=== PATIENT | male | born 1975 | race Caucasian/White ===

== ENCOUNTER 2020-11-20 10:09 | Outpatient (CLI) | payer OTHER, SELFPAY ==
--- NOTE | ~2020-11-20 | XR_ITS ---
XR knee LT 3V 11/20/2020 10:31 Indication: Left knee pain Procedure: 3 views left knee Comparison: No prior studies for comparison. Findings: Mild tricompartment osteoarthritis of the left knee. No significant joint effusion. There a re vascular calcifications. No fracture or traumatic malalignment. Impression: 1: Mild osteoarthritis of the left knee. Reviewed, dictated and finalized at location A. E UNLOADER Impression: 1: Mild osteoarthritis of the left knee.
== END 2020-11-20 10:10 | disposition home or self-care (01) ==
LOC: CHSIMG 10:12
PROVIDERS: PCP Family Medicine; Visit Provider Family Medicine
DX: M25.562 Pain in left knee (principal)
CPT/HCPCS: 73562

== ENCOUNTER 2021-07-16 14:21 | Outpatient (CLI) | payer BC, SELFPAY ==
--- NOTE | ~2021-07-16 | US_ITS ---
EXAMINATION: US arterial ankle brachial ind DATE: 07/16/2021 15:21 INDICATION: Absent pedal pulses. TECHNIQUE: Segmental pressures and plethysmographic and Doppler waveforms of the brachial and lower e xtremity arteries were obtained. COMPARISON: None. FINDINGS: Right and left brachial artery pressures of 128 mm Hg and 119 mm Hg, respectively, are concordant (no rmal difference <= 30 mmHg). The right ankle-brachial index (KIANNA) is 0.97 (normal >= 0.9-1.0). No evident vascular flow identified at color Doppler in the right dorsalis pedis artery consistent with complete occlusion. The right gr eat toe-brachial index (TBI) is 0.67 (normal >= 0.65). Arterial Doppler waveforms are triphasic with brisk systolic upstrokes at the right posterior tibial artery. The left KIANNA is 1.04. The left TBI is 0.61. Arterial Doppler waveforms are triphasic with brisk systo lic upstrokes at both the left posterior tibial and dorsalis pedis arteries. IMPRESSION: 1. Occluded right dorsalis pedis artery but with no significant arterial occlusive disease to the rig ht posterior tibial artery and tingling a normal right KIANNA and TBI. 2. Mild arterial occlusive disease to the left lower limb with normal left KIANNA but mildly decreased l eft TBI. Reviewed, dictated and finalized at location A. IMPRESSION: 1. Occluded right dorsalis pedis artery but with no significant arterial occlus jack disease to the right posterior tibial artery and tingling a normal right AB I and TBI. 2. Mild arterial occlusive disease to the left lower limb with normal left KIANNA but mildly decreased left TBI.
== END 2021-07-16 14:22 | disposition home or self-care (01) ==
LOC: CHSIMG 14:22
PROVIDERS: PCP Family Medicine; Visit Provider Family Medicine
DX: R09.89 Other specified symptoms and signs involving the circulatory and respiratory systems (principal)
CPT/HCPCS: 93922

== ENCOUNTER 2021-08-20 11:56 | Outpatient (RCR) | payer BC, SELFPAY ==
[2021-08-20 13:31] VITALS: BMI 43.8
== END 2021-11-18 23:59 | disposition home or self-care (01) ==
LOC: ANHWOC 11:56
PROVIDERS: PCP Family Medicine; Visit Provider Family Medicine
DX: I87.2 Venous insufficiency (chronic) (peripheral) (principal)
CPT/HCPCS: 99212; G0463

== ENCOUNTER 2022-02-12 07:29 | Outpatient (RCR) | payer BC, SELFPAY ==
--- NOTE | 2022-03-11 14:40 | PCWOUND ---
WOCN NOTE patient called to cancel his appointment for 03/12/22. Patient sees a vascular specialist in [facility]. Patient states that his vascular surgeon has referred him to another doctor who wants him to do his wound care in [facility].
== END 2022-02-25 23:59 | disposition home or self-care (01) ==
LOC: ANHWOC 07:29
PROVIDERS: PCP Family Medicine; Visit Provider Family Medicine
DX: I87.2 Venous insufficiency (chronic) (peripheral) (principal); L97.829 Non-pressure chronic ulcer of other part of left lower leg with unspecified severity
CPT/HCPCS: 99212; A9270; G0463

== ENCOUNTER 2022-02-13 12:32 | Outpatient (CLI) | payer BC, SELFPAY ==
[2022-02-13 12:43] LABS: Basophils Absolute Auto 0.04 K/mm3 (0.00-0.10); Basophils Percent Auto 0.6 % (0.0-1.0); Eosinophils Absolute Auto 0.29 K/mm3 (0.02-0.50); Eosinophils Percent Auto 4.5 % (1.0-6.0); Hematocrit 44.7 % (40.0-54.0); Hemoglobin 14.9 g/dL (14.0-18.0); Immature Granulocyte Absolute 0.03 K/mm3 (0.00-0.00); Immature Granulocyte Percent A 0.5 % (0.0-0.0); Lymphocytes Absolute Auto 1.38 K/mm3 (1.10-4.50); Lymphocytes Percent Auto 21.4 % (18.0-42.0); Mean Corpuscular HGB Conc 33.3 g/dL (32.0-36.0); Mean Corpuscular Volume 93.1 fL (78.0-102.0); Mean Platelet Volume 9.4 fl (8.7-11.0); Monocytes Absolute Auto 0.56 K/mm3 (0.10-0.90); Monocytes Percent Auto 8.7 % (2.0-11.0); Neutrophils Absolute Auto 4.2 K/mm3 (1.7-7.2); Neutrophils Percent Auto 64.3 % (50.0-70.0); Platelet Count Result 184 K/mm3 (150-420); Red Cell Distribution Width 12.5 % (11.6-14.4); White Blood Count 6.5 K/mm3 (4.8-10.8)
[2022-02-13 13:19] LABS: Alanine Aminotransferase 46 U/L (16-63); Albumin Level 4.4 g/dL (3.4-5.0); Alkaline Phosphatase 60 U/L (46-116); Anion Gap 10 mmol/L (8-16); Aspartate Amino Transferase 24 U/L (15-37); Bilirubin,Total 0.5 mg/dL (0.00-1.00); Blood Urea Nitrogen 17 mg/dL (7-18); Calcium 9.8 mg/dL (8.5-10.1); Carbon Dioxide 28 mmol/L (21-32); Chloride 103 mmol/L (98-108); Estimated Glomerular Filt Rate > 60; Glucose 99 mg/dL (70-99); Osmolality Calculated 293 mOsm/kg (285-295); Potassium 4.2 mmol/L (3.5-5.1); Sodium 141 mmol/L (136-145); Total Protein 7.4 g/dL (6.4-8.2)
[2022-02-13 13:48] LABS: Erythrocyte Sedimentation Rate 10 mm/hr (0-15)
[2022-02-18 09:37] LABS: ANA Cascade Screen Negative (Negative)
== END 2022-02-13 12:33 | disposition home or self-care (01) ==
LOC: CHSLAB 12:34
PROVIDERS: PCP Family Medicine; Visit Provider Family Medicine
DX: R21 Rash and other nonspecific skin eruption (principal); L03.116 Cellulitis of left lower limb
CPT/HCPCS: 36415; 80053; 85025; 85652; 86038; 87070; 87205

== ENCOUNTER 2023-11-16 20:25 | Emergency (ER) | payer OTHER, SELFPAY ==
[2023-11-16] VITALS (19 sets, daily range): BP systolic 128–150; BP diastolic 80–101; PULSE 76–94; RESP 8–22; TEMP 36.8; O2SAT 91–98
--- NOTE | ~2023-11-16 | XR_ITS ---
EXAMINATION: XR chest 1V portable Exam Date/Time: 11/16/2023 20:50 ACUTE CARE PHYSICAL THERAPIST HISTORY: v-fib arrest, Comparison: 03/24/2017. RESULT: Lines, tubes, and devices: Median sternotomy wires, 2 of which are fractured. Project over the inferior chest Lungs and pleura: Mild diffuse reticular opacities. Cardiomediastinal silhouette: Stable. Other: No acute osseous or upper abdominal finding. IMPRESSION: Mild interstitial edema. Reviewed, dictated and finalized at location K. E CARE PHYSICAL THERAPIST IMPRESSION: Mild interstitial edema.
--- NOTE | ~2023-11-16 | CT_ITS ---
EXAMINATION: CT brain wo con DATE: 11/17/2023 00:01 INDICATION: Cardiac arrest. TECHNIQUE: Computed tomography (CT) of the head was performed without intravenous contrast. The mA wa s adjusted according to patient size. Iterative reconstruction technique was employed. The dose-lengt h product was 681.00 mGy-cm. COMPARISON: None FINDINGS: There are old infarcts in the right basal ganglia. There are scattered areas of low attenua tion in the cerebral white matter, which is within normal limits for the patient's age. There is no i ntracranial hemorrhage, acute infarction, or abnormal intracranial mass lesion. The ventricles are no rmal in size. There is mild mucosal thickening in the ethmoid sinuses. There is a mucous retention cy st in right maxillary sinus. The mastoid air cells are normal. The orbits are normal. IMPRESSION: 1. Old infarcts in the right basal ganglia. Reviewed, dictated and finalized at location A. ING MACHINE SERVICER
--- NOTE | ~2023-11-16 | CT_ITS ---
EXAMINATION: CTA chest PE protocol DATE: 11/16/2023 22:23 INDICATION: Chest pain. Cardiac arrest. TECHNIQUE: Computed tomography angiography (CTA) of the chest was performed with 100 mL Omnipaque-350 intravenous contrast timed to evaluate the pulmonary arteries. Coronal maximum intensity projection 3D-reconstructions were created by the technologist. Automated exposure control and iterative reconst ruction technique were employed. The dose-length product was 1143.92 mGy-cm. COMPARISON: None. FINDINGS: The lungs demonstrate mild atelectasis. No pleural effusion. There is left ventricular enla rgement of the heart. There are coronary artery calcifications. There are changes of coronary artery bypass grafting. No pericardial effusion. The main pulmonary artery is enlarged, consistent with pulm onary arterial hypertension. There is bilateral gynecomastia. There are bridging endplate osteophytes at multiple levels in the spine, consistent with diffuse idiopathic skeletal hyperostosis (DISH). Th ere is mild chronic anterior wedging of multiple vertebral bodies. IMPRESSION: 1. No pulmonary embolus. 2. Left ventricular enlargement of the heart. Reviewed, dictated and finalized at location A. NEERING EXECUTIVE
--- NOTE | 2023-11-16 20:39 | ECG_ITS ---
Measurements Intervals [place] Rate: 90 P: 29 MA: 185 QRS: 24 QRSD: 156 T: -69 QT: 401 QTc: 491 Interpretive Statements SINUS RHYTHM INTRAVENTRICULAR CONDUCTION DELAY DELAYED PRECORDIAL R/S TRANSITION INFERIOR INFARCT, AGE INDETERMINATE BORDERLINE ST-T WAVE ABNORMALITY- LAT/HIGH LAT LEADS BASELINE ARTIFACT- V5-V6 ABNORMAL ECG NO PREVIOUS ECG AVAILABLE FOR COMPARISON Electronically Signed On 11-17-2023 8:17:23 MECHANICAL ENGINEERING ADVISOR by Negrito Samuel D.O.
[2023-11-16 20:52] LABS: Basophils Absolute Auto 0.1 K/mm3 (0.0-0.1); Basophils Percent Auto 0.9 % (0.2-1.2); Eosinophils Absolute Auto 0.1 K/mm3 (0-0.3); Eosinophils Percent Auto 1.8 % (0-4.4); Hematocrit 45.7 % (42.0-52.0); Lymphocytes Absolute Auto 1.73 K/mm3 (0.9-3.2); Lymphocytes Percent Auto 25.6 % (18.3-44.2); Mean Corpuscular HGB Conc 32.8 g/dl (32-36); Mean Corpuscular Hemoglobin 30.6 pg (26-34); Mean Corpuscular Volume 93.3 fl (80-100); Monocytes Absolute Auto 0.6 K/mm3 (0.1-0.6); Monocytes Percent Auto 8.9 % (2.6-8.5); Neutrophils Percent Auto 59.8 % (45.5-73.1); Platelet Count Result 179 k/mm3 (150-375); Red Cell Distribution Width 12.5 % (11.5-14.5); White Blood Count 6.8 K/mm3 (4.5-10.0)
[2023-11-16 21:02] LABS: Prothrombin Time 14.2 Seconds (11.1-14.7)
[2023-11-16 21:03] LABS: Partial Thromboplastin Time 26.1 SECONDS (22.3-36.8)
[2023-11-16] MEDS: AMIODARONE 150 MG/D5W 100 ML 150 MG/100 ML BAG 600 MG IV CONT (21:04)
[2023-11-16 21:06] LABS: Alanine Aminotransferase 250 U/L (6-50); Albumin Level 4.8 g/dL (3.5-5.1); Alkaline Phosphatase 69 U/L (38-126); Anion Gap 16 mmol/L (8-16); Aspartate Amino Transferase 313 U/L (17-59); Bilirubin,Total 0.7 mg/dL (0.2-1.3); Blood Urea Nitrogen 20 mg/dL (9-20); Calcium 9.3 mg/dL (8.4-10.2); Carbon Dioxide 19 mmol/L (22-30); Chloride 104 mmol/L (98-107); Estimated CRCL calculation 74 ml/min; Estimated Glomerular Filt Rate 46; Glucose 151 mg/dL (65-110); Lipase 116 U/L (23-300); Magnesium 2.1 mg/dL (1.6-2.3); Phosphorus 4.5 mg/dL (2.5-4.5); Potassium 3.6 mmol/L (3.4-5.0); Sodium 139 mmol/L (137-145)
[2023-11-16 21:16] LABS: Troponin I < 0.012 ng/mL (0.000-0.034)
[2023-11-16 21:17] LABS: NT Pro B Type Natriuretic Pept 287 pg/mL (19.9-100); Troponin I < 0.012 ng/mL (0.000-0.034)
[2023-11-16 21:21] LABS: Lactic Acid Reflex 4.7 mmol/L (0.7-2.0)
[2023-11-16] MEDS: AMIODARONE 360 MG/D5W 200 ML 360 MG/200 ML BAG 33.33 MG IV CONT (21:35)
--- NOTE | 2023-11-16 21:45 | ECG_ITS ---
Measurements Intervals [place] Rate: 84 P: 20 IL: 179 QRS: 16 QRSD: 158 T: -52 QT: 407 QTc: 484 Interpretive Statements SINUS RHYTHM VENTRICULAR PREMATURE COMPLEX INTRAVENTRICULAR CONDUCTION DELAY DELAYED PRECORDIAL R/S TRANSITION INFERIOR INFARCT, AGE INDETERMINATE BORDERLINE ST-T WAVE ABNORMALITY- ANTEROLAT/HIGH LAT LEADS ABNORMAL ECG COMPARED TO ECG 11/16/2023 20:41:04 NO SIGNIFICANT CHANGES Electronically Signed On 11-17-2023 8:19:22 JEWELRY TECHNICIAN by Negrito Samuel D.O.
[2023-11-16 22:01] LABS: Free T4 Free Thyroxine Reflex 1.13 ng/dL (0.78-2.19)
--- NOTE | 2023-11-16 22:52 | ED.GENADULT ---
HPI - General Adult General Chief complaint: Cardiac Arrest/CPR Stated complaint: post ROSC in field Time Seen by Provider: 11/16/23 20:33 History of Present Illness HPI narrative: this is a 48-year-old male with a history of coronary artery disease with CABG and cardiomyopathy with ejection of less than 20%. patient does not recall the events will lead to have the ER. His heard him fall in the kitchen. She then performed CPR as he was unresponsive. When EMS arrived he was found to be in VFib. He was shocked and then returned to A&O x4. His only complaint is time is chest wall pain For CPR was performed. Per his his pipeline gang supervisor Michel Patterson had recommended a an AICD due to persistently low EF and the patient had refused. Related Data Home Medications Medication Instructions Recorded Confirmed levofloxacin 500 mg tablet 500 mg PO DAILY 08/20/21 08/20/21 lisinopril 40 mg tablet 40 mg PO DAILY 08/20/21 08/20/21 metoprolol succinate 100 mg 100 mg PO DAILY 08/20/21 08/20/21 tablet,extended release 24 hr rosuvastatin 40 mg tablet 40 mg PO DAILY 08/20/21 08/20/21 spironolactone 25 mg tablet 25 mg PO DAILY 08/20/21 08/20/21 ticagrelor 60 mg tablet (Brilinta) 60 mg PO Q12H 08/20/21 08/20/21 triamcinolone acetonide 0.1 % 1 applic topical BID 08/20/21 08/20/21 topical cream Allergies Allergy/AdvReac Type Severity Reaction Status Date / Time No Known Allergies Allergy Mild Verified 08/20/21 13:56 [facility] Past Medical History Medical History CAD (coronary artery disease) Cardiomyopathy Diabetes HTN (hypertension) Exam Narrative: APPEARANCE: No apparent distress. Head: atraumatic. EYES: EOMI, NOSE: Atraumatic NECK: Trachea midline RESPIRATORY: No increased rate of breathing, CTAB CARDIOVASCULAR: RRR, , no peripheral edema ABDOMINAL: Non-distended, soft nontender MUSCULOSKELETAl: chest wall tenderness of the left parasternal area no bruising or crepitus NEURO: Alert. Moving 4/4 extremities SKIN:: Warm, dry. Normal color PSYCHIATRIC: Normal affect Course Vital Signs Vital signs: Vital Signs Temperature 98.3 F 11/16/23 20:15 Pulse Rate 94 11/16/23 20:15 Respiratory Rate 15 11/16/23 20:15 Blood Pressure 143/98 H 11/16/23 20:15 Pulse Oximetry 93 11/16/23 20:15 Oxygen Delivery Room Air 11/16/23 20:15 Temperature 98.3 F 11/16/23 20:15 Pulse Rate 86 11/17/23 01:15 Respiratory Rate 20 11/17/23 01:15 Blood Pressure 147/101 H 11/16/23 23:51 Pulse Oximetry 95 11/17/23 01:15 Oxygen Delivery Room Air 11/16/23 23:21 Oxygen Flow Rate 2 11/16/23 20:39 Medical Decision Making MDM Narrative Medical decision making narrative: -Course: 48-year-old male presenting with VFib arrest in the field. He received a shock with return to baseline mental status. On arrival his only complaint is left chest wall pain. EKG showed no specific ST changes. STEMI was activated and I discussed the case with Dr. Lazo about some concerns for STEMI in III/AVF. She was able to compare the ekg to previous records and no concern for stemi at this time. REpeat EKG unchanged. patient likely went to VFib arrest due to low ejection fraction. He was started on amiodarone. case was discussed with Dr. Jolley public affairs director at [facility] in [place]. He has accepted the patient. Patient will be transferred to an outside facility for further cardiac management. -DDX includes but is not limited to: ACS, VFib arrest, cardiomyopathy, pneumonia, PE, dissection, -Co-morbidities complicating care: CAD, cardiomyopathy, hypertension, diabetes, high cholesterol -External Chart Review: outside cardiology records -Hx from independent Sources: at bedside -Independent interpretation of studies: CBC normal, metabolic panel showed a creatinine 1.6. No baseline to compare. Lactate is 4.7 which is being trended. Minor elevati
[2023-11-16 23:25] LABS: Total Triiodothyronine (T3) 1.11 NG/ML (0.97-1.69)
[2023-11-16] MEDS: ACETAMINOPHEN 500 MG TABLET 1000 MG PO (23:25)
[2023-11-16 23:50] LABS: Reflex Lactic Acid Yes or No Add Lactic
[2023-11-17] VITALS (11 sets, daily range): BP systolic 150–158; BP diastolic 97–102; PULSE 78–92; RESP 18–29; O2SAT 95–98
[2023-11-17] MEDS: POTASSIUM CHLORIDE 20 MEQ PACKET (FOR LIQUID) 40 MEQ PO (00:10)
[2023-11-17 01:06] LABS: Lactic Acid 1.3 mmol/L (0.7-2.0)
[2023-11-17 01:25] LABS: Troponin I 0.181 ng/mL (0.000-0.034)
--- NOTE | 2023-11-17 01:35 | PC.NURSE ---
THIS RN SPOKE WITH JACINTA STEEL AT [facility] TO UPDATE RN ON PT CRITICAL TEST RESULTS OF TROPONIN. THIS RN SPOKE WITH JACINTA STEEL AT [phone].
[2023-11-17] MEDS: HEPARIN SOD/D5W 100 UNITS/ML 25,000 UNITS/250 ML BAG 10 UNITS IV CONT (01:45)
[2023-11-17] MEDS: HEPARIN SODIUM 5,000 UNITS/ML VIAL 4000 UNITS IV PUSH (01:45)
--- NOTE | 2023-11-17 02:31 | PC.NURSE ---
PT TRANSFERRED WITH AMIODARONE INFUSING ALONG WITH HEPARIN.
== END 2023-11-17 02:32 | disposition short-term general hospital (02) ==
PROVIDERS: Emergency Provider Emergency Medicine; PCP Family Medicine
DX: I49.01 Ventricular fibrillation (principal); I46.9 Cardiac arrest, cause unspecified; I25.10 Atherosclerotic heart disease of native coronary artery without angina pectoris; I10 Essential (primary) hypertension; I42.9 Cardiomyopathy, unspecified; E11.9 Type 2 diabetes mellitus without complications; E78.00 Pure hypercholesterolemia, unspecified; Z95.1 Presence of aortocoronary bypass graft; I45.9 Conduction disorder, unspecified; R94.31 Abnormal electrocardiogram [ECG] [EKG]; I49.3 Ventricular premature depolarization
CPT/HCPCS: 36415; 70450; 71045; 71275; 80053; 83605; 83690; 83735; 83880; 84100; 84439; 84443; 84480; 84484; 85025; 85610; 85730; 93005; 96365; 96366; 99285; A9270; J0282; J1644; J2060; Q9967

== ENCOUNTER 2024-10-11 10:13 | Outpatient (CLI) | payer OTHER, SELFPAY ==
--- NOTE | ~2024-10-11 | XR_ITS ---
XR knee LT 3V Ordering provider: Geovanni Meyer MD History: . PAIN IN LEFT KNEE,PATELLA,NKI . Comparison: None. FINDINGS: BONES: No acute fracture or dislocation. JOINT SPACES: Slight narrowing of the medial compartment. Marginal osteophytes in the patella. SOFT TISSUES: Atherosclerotic changes. IMPRESSION: No acute osseous abnormality left knee. Mild osteoarthritic changes. Reviewed, dictated and finalized at location A. OR FINANCIAL ACCOUNTANT
== END 2024-10-11 10:14 | disposition home or self-care (01) ==
LOC: CHSIMG 10:14
PROVIDERS: PCP Family Medicine; Visit Provider Family Medicine
DX: M25.562 Pain in left knee (principal)
CPT/HCPCS: 73562

== ENCOUNTER 2024-10-20 16:01 | Outpatient (RCR) | payer OTHER, SELFPAY ==
--- NOTE | 2024-10-20 16:53 | OPREHPOC ---
Outpatient Therapy Plan of Care This is a Multidisciplinary Plan of Care that may contain components documented by all disciplines (PT, OT, and ST.) PT Problem 1 PT Problem #1 Knowledge Deficit PT Goal 1 Goal / Goal Update 1. independent and compliant with HEP Target Visit 5 PT Problem 2 PT Problem #2 Pain PT Goal 1 Goal / Goal Update 1. decrease pain at worst to 3/10 or less in the L knee in the last week Target Visit 9 PT Problem 3 PT Problem #3 Impaired Range of Motion PT Goal 1 Goal / Goal Update 1. 0-120 degrees active L knee rom Target Visit 9 PT Problem 4 PT Problem #4 Impaired Strength PT Goal 1 Goal / Goal Update 1. 5/5 L knee ext strength 2. 5/5 bilateral hip flex strength Target Visit 9 PT Problem 5 PT Problem #5 Impaired Functional Mobil PT Goal 1 Goal / Goal Update 1. LEFS to display 30% or less functional deficits 2. patient to ambulate with equal stance time/ weight bearing on the bilateral LE's. Target Visit 9
--- NOTE | 2024-10-20 16:53 | PTOPEVAL1 ---
Assessment and note entered by JT File, PT Evaluation Information Assessment Status Evaluation ICD-10 Condition Codes (PT) Pain in left knee M25.562 Onset 10/06/24 Subjective Information patient reports the L knee has been bad for quite some time. he reports he has been seeing the MD for a few years. he reports he recently had xrays, and was told he has a little OA in the knee. he reports he has increased pain in the L knee with all activities at times. he reports some times sitting is worse, some times standing is worse, and some times he can have severe pain with pivoting/turning. he reports it does give out on him, but it has not given out on him in a few days . 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 he reports he is on his feet all day. Reported Pain Level Pain Score 2: Self Report Assessment PT Clinical Summary mr. ham is a 49 yo man who presents to skilled PT services for evaluation and treatment of L knee pain. he presents today with signs and symptoms possible cartilage damage or medial patella plica issues. he presents with decreased L knee rom, L knee weakness, and antalgic gait mechanics. he would benefit from continued skilled PT to address his objective/functional deficits and return to his prior level functional activity performance/ quality of life. Plan of Care Interventions Gait Training,Hot Pack/Cold Pack,Manual Therapy, Neuro Re-education,Patient/Caregiver Educati, Therapeutic Activities,Therapeutic Exercise PT Services Indicated Yes Treatment Frequency and 3x weekly for 9 visits Duration These treatments will address the objective and functional deficits as defined above. The patient will be advanced safely and appropriately in order for the patient to progress towards his/her prior level of function. Additional exercises will be introduced and as well as a comprehensive home exercise program upon discharge, if needed, ?to ensure carryover of functional gains achieved in the clinic. This treatment plan has been reviewed and agreement upon by the patient.
--- NOTE | 2024-11-05 13:17 | PCPTNOTE ---
Patient called & cancelled scheduled appointment this date due to [knee swollen and hurting]
--- NOTE | 2024-11-19 17:39 | OPREHPOC ---
Outpatient Therapy Plan of Care This is a Multidisciplinary Plan of Care that may contain components documented by all disciplines (PT, OT, and ST.) PT Problem 1 PT Problem #1 Knowledge Deficit PT Goal 1 Goal / Goal Update 1. independent and compliant with HEP Target Visit 5 Progress Met PT Problem 2 PT Problem #2 Pain PT Goal 1 Goal / Goal Update 1. decrease pain at worst to 3/10 or less in the L knee in the last week Target Visit 9 PT Problem 3 PT Problem #3 Impaired Range of Motion PT Goal 1 Goal / Goal Update 1. 0-120 degrees active L knee rom Target Visit 9 Progress Partially Met PT Problem 4 PT Problem #4 Impaired Strength PT Goal 1 Goal / Goal Update 1. 5/5 L knee ext strength 2. 5/5 bilateral hip flex strength Target Visit 9 Progress Met PT Problem 5 PT Problem #5 Impaired Functional Mobility PT Goal 1 Goal / Goal Update 1. LEFS to display 30% or less functional deficits 2. patient to ambulate with equal stance time/ weight bearing on the bilateral LE's. Target Visit 9 Progress Partially Met
--- NOTE | 2024-11-19 17:39 | PTOPDC ---
Assessment and note entered by JT File, PT Evaluation Information Assessment Status Discharge ICD-10 Condition Codes (PT) Pain in left knee M25.562 Onset 10/06/24 Subjective Information patient reports the knee feels Better overall. he reports he has less pain in the knee, more mobility in the knee, and he reports it has not given out on him recently. he reports the swelling has gone down quite a bit as well. he reports he is returning to see the MD soon, and will develop a plan for his knee. Reported Pain Level Pain Score 3: Self Report Pain Score 3: Self Report Assessment PT Clinical Summary mr. ham presents to skilled PT for his 9th skilled PT visit. he displays improved rom, strength, and gait mechanics. he has met hep and strength goal, but still lacks achievement of LEFS goals and rom goals completely (progress towards/ partial achievement made in these areas). he is compliant with his HEP at home, and is awaiting follow up with his MD. at this time, he will DC skilled PT and continue with HEP independent at home. Plan of Care PT Services Indicated Yes
== END 2024-11-19 17:42 | disposition home or self-care (01) ==
LOC: CHSPT 16:01
PROVIDERS: Visit Provider Family Medicine
DX: M25.562 Pain in left knee (principal)
CPT/HCPCS: 97016; 97110; 97150; 97161

== ENCOUNTER 2025-02-23 08:15 | Outpatient (CLI) | payer OTHER, SELFPAY ==
--- NOTE | ~2025-02-23 | US_ITS ---
EXAMINATION: US soft tissue head and neck DATE: 02/23/2025 08:34 INDICATION: Large thyroid. Swelling in the neck. TECHNIQUE: Multiple ultrasound images of the and neck in the region of the thyroid and below the chin were obtained. COMPARISON: None. FINDINGS: The right thyroid lobe measures 5.3 x 2.7 x 2.3 cm. The left thyroid lobe measures 5.2 x 2.8 x 2.0 c m. Thyroid isthmus measures 8 mm in thickness. Heterogeneous echogenicity with coarsened echotexture throughout the thyroid with normal vascular flow on color Doppler. No discrete nodules identified. Th ere are few mildly prominent but still normal-sized submental lymph nodes below the chin largest master uring 2.6 x 2.4 x 0.8 cm. No other abnormal masses or fluid collections identified. IMPRESSION: 1. A few mildly prominent but still normal-sized submental lymph nodes. 2. Mildly enlarged heterogeneous thyroid with coarsened echotexture but without increased vascular fl ow on color Doppler or discrete nodules. This could be seen in the setting of chronic thyroiditis. Reviewed, dictated and finalized at location B. IMPRESSION: 1. A few mildly prominent but still normal-sized submental lymph nodes. 2. Mildly enlarged heterogeneous thyroid with coarsened echotexture but without increased vascular flow on color Doppler or discrete nodules. This could be se en in the setting of chronic thyroiditis.
--- OUTSIDE RECORDS SUMMARY | 2025-02-23 08:28 | XMS_ITS | Encounter Summary ---
Author Organization [facility] Address [address] [place] [id number] Care Team Providers Care Link Wire Fabric Machine Operator Name Role Phone Geovanni Meyer MD Primary Care Provider [phone] Sugar Patterson MD Unavailable El Tariq MD Unavailable [phone] Barbara Flowers MD Unavailable [phone] Tony Jimenez PA-C Unavailable [phone] Reason for Visit * Reason Onset Date Comments Results 02/09/2025 Encounter Details Date Type Department Care Team (Late st Contact Info) Description 02/09/2025 Telephone [facility] [address] [place] [address] Barbara Flowers MD [address] [facility] [address] [address] Results Social History Tobacco Use Types Packs/Day Years Used Date Smoking Tobacco: Former Smokeless Tobacco: Never Snuff Alcohol Use Standard Drinks/Week Comments Yes 0 (1 standard drink = 0.6 oz pur e alcohol) 5-10 drinks per week [facility] Utilities Answer Date Recorded In the past 12 months has e electric, gas, oil, or water [employer] threatened to shut off services in your home? No 11/17/2023 Humiliation, Afraid, Rape, and Kick questionnair e Answer Date Recorded Within the last year, have y ou been afraid of your partner or ex-partner? No 11/17/2023 Within the last year, have y ou been humiliated or emotionally abused in other ways by your partner or ex-partner? No Within the last year, have y ou been kicked, hit, slapped, or otherwise physically hurt by your partner or ex-partner? No 11/17/2023 Within the last year, have y ou been raped or forced to have any kind of sexual activity by your partner or ex-partner? No 11/17/2023 Overall Financial Resource Strain (CARDIA) Answe r Date Recorded How hard is it for you to pa y for the very basics like food, housing, medical care, and heating? Not hard at all 11/17/2023 Hunger Vital Sign Answer Date Recorded Within the past 12 months, y ou worried that your food would run out before you got the money to buy more. Never true 11/17/19 24 Within the past 12 months, t he food you bought just didn't last and you didn't have money to get more. Never true 11/17/2023 PRAPARE - Transportation Answer Date Re corded In the past 12 months, has l ack of transportation kept you from medical appointments or from getting medications? No 11/2023 In the past 12 months, has l ack of transportation kept you from meetings, work, or from getting things needed for daily living? No 11/17/2023 Housing Stability Vital Sign Answer Sukumar e Recorded In the last 12 months, was t here a time when you were not able to pay the mortgage or rent on time? No 11/17/2023 In the last 12 months, how many places have you lived? 1 11/17/2023 In the last 12 months, was t here a time when you did not have a steady place to sleep or slept in a snf (including now)? 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 Answer Date of Assessment Author Status No 11/17/2023 4:00 AM Chun Richey RN Active * Do you have serious difficulty walking or climbing stairs? Answer Date of Assessment Author Status No 11/17/2023 4:00 AM Chun Richey RN Active * Do you have difficulty dressing or bathing? Answer Date of Assessment Author Status No 11/17/2023 4:00 AM Chun Richey RN Active * Because of a physical, mental, or emotional condition, do you have difficulty doing errands alone such as visiting a doctor's office or shopping? Answer Date of Assessment Author Status No 11/17/2023 4:00 AM Chun Richey RN Active documented as of this encounter Mental Status * Because of a physical, mental, or emotional condition, do you have serious difficulty concentrating, remembering, or making decisions? Answer Entry Date Author Status No 11/17/2023 4:00 AM Chun Richey RN Active documented in this encounter Progress Notes * Pierce Mcginnis MA - 02/22/2025 10:24 AM CDT Images from the original note were not included. MD Pierce Chao MA No changes to plan. Keep 03/17 followup. Previous Messages ----- Message ----- From: Pierce Mcginnis MA Sent: 02/09/2025 3:43 PM CDT To: Barbara Flowers MD Please see 01/10 Amiodarone Surveillance Results. TSH, CMP, and CXR were normal. Patient's amio level showed subtherapeutic at 0.6 Recommendation at 01/10 Clinic Visit was to follow up in 2 months and discuss possibly reducing dose. Also discussed VT ablation vs continue amio. Patient is scheduled to meet with Ed on 03/17. documented in this encounter Plan of Treatment Upcoming Encounters Date Type Department Care Team (Latest Contact Info) Description 03/17/2025 2:00 PM CDT Office Visit [facility] [address] [place] [address] Tony Jimenez PA-C [address] [place] [phone] 03/17/2025 2:00 PM CDT Allied Health/Nurse Visit [facility] [address] [place] [phone] Barbara Flowers MD [address] [place] [phone] 06/23/2025 1:00 AM CDT Allied Health/Nurse Visit [address] [phone] Barbara Flowers MD [address] [place] [phone] 07/20/2025 1:30 PM CDT Appointment [facility] [address] [place] [address] Sugar Patterson MD [address] [place] [phone] 07/25/2025 1:30 PM CDT Office Visit [facility] [address] [place] [address] Sugar Patterson MD [address] [place] [phone] documented as of this encounter Goals Goal Patient Goal Type Associated Problems Recent Progress Patient-Stated? Author Patient will return to prior living situation and remain independent in ADLs upon discharge from hospital Lifestyle No Michelle Self RN documented as of this encounter Visit Diagnoses Not on filedocumented in this encounter Care Teams Link Wire Fabric Machine Operator Relationship Specialty Start Date End Date Geovanni Meyer MD [address] [place], [place] [id number] PCP - General FAMILY PRACTICE 08/06/21 Sugar Patterson MD [address] [place] [address] [place] Feature Writer CARDIOVASCULAR DISEASE 10/31/21 El Tariq MD [address] [place], [place] [id number] Vascular/Cardiologis t INTERVENTIONAL CARDIOLOGY 12/14/21 Barbara Flowers MD [address] [place] [phone] Consulting Physician Electrophysiology 11/19/23 Tony Jimenez PA-C [address] [place] [phone] PHYSICIAN WINDOW UNIT AIR CONDITIONING MECHANIC 11/19/23 documented as of this encounter
--- OUTSIDE RECORDS SUMMARY | 2025-02-23 08:28 | XMS_ITS | Clinical Summary ---
Author Organization [facility] Address [place] [address] Care Team Providers Care Dye Stand Loader Name Role Phone Geovanni Meyer MD Primary Care Provider [phone] Savita Vaughan MD Unavailable El Tariq MD Unavailable [phone] Barbara Flowers MD Unavailable [phone] Tony Jimenez PA-C Unavailable [phone] Allergies No known active allergies Medications rosuvastatin 40 MG tablet Take 1 tablet (40 mg total) by mouth nightly at bedtime. 1 Active BRILINTA 60 MG tablet Take 1 tablet (60 mg total) by mouth 2 (two) times daily. 1 Active aspirin EC 81 MG tablet Take 1 tablet (81 mg total) by mouth daily. Active COMPRESSION STOCKINGS B/l knee high 15-20mmhg 1 Container 2 2 Active spironolactone (ALDACTONE) 25 MG tablet Take 1 tablet (25 mg total) by mouth daily. 90 tablet 3 4 Active ENTRESTO 24-26 MG tablet take 1 tablet by mouth twice daily 180 tablet 3 4 Active amiodarone (PACERONE) 200 MG tablet Take 1 tablet (200 mg total) by mouth 2 (two) times daily. 180 tablet 1 5 Active carvedilol (COREG) 25 MG tabletIndications :Ventricular fibrillation (CMS/HCC [facility]) Take 1.5 tablets (37.5 mg total) by mouth 2 (two) times daily. 270 tablet 1 Active traMADol (ULTRAM) 50 MG tablet Take 1 tablet (50 mg total) by mouth 3 (three) times daily as needed. 4 Active Active Problems Problem Noted Date Diagnosed Date Sustained ventricular tachycardia ([facility]) 01/16/2025 High risk medication use 12/25/2023 LBBB (left bundle branch block) 12/25/2023 Biventricular ICD (implantab le cardioverter-defibrillator) in place 11/19/2023 Ischemic cardiomyopathy 11/19/2023 Ventricular fibrillation ([facility]) 11/17 Iliac artery stenosis, left 03/07/2022 Venous ulcer ([facility]) 01/02/2022 Bilateral edema of lower extremity 10/25/2021 PAD (peripheral artery disease) 10/25/2021 Hyperglycemia 10/25/2021 Open wound of left lower leg 10/25/2021 Body mass index 40.0-44.9, adult 10/25/2021 Absent pedal pulses 10/25/2021 Hyperlipidemia 04/29/2017 Coronary arteriosclerosis 04/26/2017 Hx of CABG 03/26/2017 Overview (10/25/2021): 4 vessel Resolved Problems Problem Noted Date Diagnosed Date Resolved Date Cardiac arrest with ventricu lar fibrillation ([facility]) 11/17/2023 11/19/2023 Encounters Date Type Department Care Team Description 02/09/2025 Telephone [facility] [address] [place] [address] Barbara Flowers MD Results 01/10/2025 3:11 PM PRODUCE LABORER - 01/10/2025 11:59 PM PRODUCE LABORER Hospital Encounter [facility] [address] [place], [place] [address] Vijay León MD Discharge Disposition: Home or Self Care (Routine Discharge) 01/10/2025 3:10 PM PRODUCE LABORER Hospital Encounter [facility] [address] [place] [address] Vijay León MD Discharge Disposition: Home or Self Care (Routine Discharge) 01/10/2025 1:45 PM PRODUCE LABORER Allied Health/Nurse Visit [facility] [address] [place] [address] Barbara Flowers MD In Clinic Device Check 01/10/2025 1:45 PM PRODUCE LABORER Office Visit [facility] [address] [place] [address] Barbara Flowers MD Follow Up; Arrhythmia; Abnormal EKG 01/10/2025 Telephone [facility] [address] [place] [address] Tony Jimenez PA-C Appointment Request 01/10/2025 Travel 01/10/2025 Orders Only [facility] [address] [place] [address] Barbara Flowers MD 12/13/2024 12:00 PM PRODUCE LABORER [facility] [address] [place] [address] Savita Vaughan MD Heart Problem 12/13/2024 11:32 AM PRODUCE LABORER - 12/13/2024 11:59 PM PRODUCE LABORER Hospital Encounter [facility] [address] [place] [address] [place] [address] Savita Vaughan MD Discharge Disposition: Home or Self Care (Routine Discharge) 12/13/2024 Telephone [facility] [address] [place] [address] Savita Vaughan MD Follow Up Call 12/13/2024 Travel 12/08/2024 Orders Only [facility] [address] [place] [address] Savita Vaughan MD 12/08/2024 Telephone [facility] [address] [place] [address] Savita Vaughan MD Appointment Request from Last 3 Months Family History Medical History Relation Comments Heart Attack Father Open Heart Father Heart Attack Paternal Grandmother Relation Status Comments Father Maternal Grandfather Maternal Grandmother Paternal Grandfather Paternal Grandmother Social History Tobacco Use Types Packs/Day Years Used Date Smoking Tobacco: Former Smokeless Tobacco: Never Snuff Alcohol Use Standard Drinks/Week Comments Yes 0 (1 standard drink = 0.6 oz pur e alcohol) 5-10 drinks per week [facility] Utilities Answer Date Recorded In the past 12 months has e [employer], gas, oil, or water [employer] threatened to shut off services in your [...] place to sleep or slept in a senior care (including now)? 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 Not on file Not on file Last Filed Vital Signs Vital Sign Reading Time Taken Comments Blood Pressure 118/80 01/10/2025 1:58 PM PRODUCE LABORER Pulse 100 01/10/2025 1:58 PM PRODUCE LABORER Temperature 36.7 C (98.1 F) 11/20/2023 7:48 AM PRODUCE LABORER Respiratory Rate 16 01/10/2025 1:58 PM PRODUCE LABORER Oxygen Saturation 94% 01/10/2025 1:58 PM PRODUCE LABORER Inhaled Oxygen Concentration - - Weight 173.3 kg (382 lb) 01/10/2025 1:58 PM PRODUCE LABORER Height 193 cm (6' 4 ) 01/10/2025 1:58 PM PRODUCE LABORER Body Mass Index 46.5 01/10/2025 1:58 PM PRODUCE LABORER Plan of Treatment Upcoming Encounters Date Type Department Care Team (Latest Contact Info) Description 03/17/2025 2:00 PM CDT Office Visit [facility] [address] [place] [phone] Tony Jimenez PA-C [address] [place] [address] 03/17/2025 2:00 PM CDT Allied Health/Nurse Visit [facility] [address] [place] [address] Barbara Flowers MD [address] [facility] [address] [place] [address] 06/23/2025 1:00 AM CDT Allied Health/Nurse Visit [facility] [address] [place] [address] Barbara Flowers MD [address] [address] 07/20/2025 1:30 PM CDT Appointment [facility] [address] [place] [address] Savita Vaughan MD [address] [place] [address] 07/25/2025 1:30 PM CDT Office Visit [facility] [address] [place] [address] Savita Vaughan MD [address] [place] [address] Health Maintenance Due Date Last Done Comments ASCVD Statin 1973 Colorectal Cancer Screening Colonoscopy (10 Years) 1973 Annual Physical 1976 Pneumococcal Vaccine: Pediatrics (0 to 5 Years) and At-Risk Patients (6 to 64 Years) (1 of 2 - PCV) 1979 Hepatitis C 1991 DTaP, Tdap and Td Vaccines ( 1 - Tdap) 1992 Hepatitis B Vaccines (1 of 3 - 19+ 3-dose series) 1992 Zoster Vaccines (1 of 2) 2023 ASCVD LDL 04/21/2024 04/21/2023 COVID-19 Vaccine ( - 2023-2 5 season) 2024 10/25/2021, 01/18/2021 Meningococcal B Vaccine Aged Out No l onger eligible based on patient's age to complete this topic Meningococcal Vaccine Aged Out No autumn adam eligible based on patient's age to complete this topic RSV Immunizations Under 20 Months Aged Out No longer eligible b ased on patient's age to complete this topic Goals Goal Patient Goal Type Associated Problems Recent Progress Patient-Stated? Author Patient will return to prior living situation and remain independent in ADLs upon discharge from hospital Lifestyle No Michelle Self RN Medical Devices Implanted Type Area Central Service Supply Distributor Device Identifier Shelf Expiration Date Model / Serial / Lot Medtronic [employer] Xt Hf Quad Bi-V-11/18/2023 Implanted:Qty: 1 on 11/18/2023 by Barbara Flowers MD ICD [employer] 02/28/2025 [id number] / [id number] / Description:DX: VF Medtronic Cslv-11/18/2023 Implanted:Qty: 1 on 11/18/2023 by Barbara Flowers MD Lead Implant [employer] 07/23/2025 [id number] / [id number] / Medtronic Ra-11/18/2023 Implanted:Qty: 1 on 11/18/2023 by Barbara Flowers MD Lead Implant [employer] 07/07/2025 [id number] / [id number] / Medtronic Rv-11/18/2023 Implanted:Qty: 1 on 11/18/2023 by Barbara Flowers MD Lead Implant [employer] 04/16/2025 [id number] / [id number] / Procedures Procedure Name Priority Date/Time Associated Diagnosis Comments COMPREHENSIVE METABOLIC PANEL Routine 01/10/2025 3:21 PM PRODUCE LABORER Ventricular fibrillation (CMS/HCC HHS/HCC) High risk medication use THYROID STIM HORMONE TSH Routine 01/10/2025 3:21 PM PRODUCE LABORER Ventricular fibrillation (CMS/HCC HHS/HCC) High risk medication use AMIODARONE Routine 01/10/2025 3:21 PM PRODUCE LABORER Ventricular fibrillation (CMS/HCC HHS/HCC) High risk medication use XR CHEST PA+LAT Routine 01/10/2025 3:17 PM PRODUCE LABORER Ventricular fibrillation (CMS/HCC HHS/HCC) High risk medication use ELECTROCARDIOGRAM (NON MIDMARK ACQUIRED) Routine 01/10/2025 2:05 PM PRODUCE LABORER Ventricular fibrillation (CMS/HCC HHS/HCC) ECG 12-LEAD Routine 12/13/2024 11:45 AM PRODUCE LABORER Coronary arteriosclerosis LIPID PANEL Routine 04/21/2023 from Last 3 Months or Most Recently Relevant to Health Maintenance Results * (ABNORMAL) AMIODARONE LEVEL (01/10/2025 3:21 PM PRODUCE LABORER) AMIODARONE S/P/B 0.9(L) 1.5 - 2.5 mcg/mL 01/13/2025 10:28 PM PRODUCE LABORER [employer] ELYSEANETTE CORBETT DESETHYLAMIODARONE 0.6(L) 1.5 - 2.5 mcg/mL 01/13/2025 10:28 PM PRODUCE LABORER [employer] DOROTHEA CORBETT Comment: TOXIC: >2.5 Toxic effects have been observed at levels as low as 2.0 mcg/mL. This test was developed and its analytical performance characteristics have been determined by [employer] [place], [place]. It has not been cleared or approved by the U.S. Food and Drug Administration. This assay has been validated pursuant to the CLIA regulations and is used for clinical purposes. Test Performed by [employer], [employer] [place], [address] [place], [place] Kb Rand M.D., Ph.D., Director of Laboratories , CLIA [id number] 01/10/2025 3:21 PM PRODUCE LABORER Barbara Flowers MD LABORATORY Final Re [facility]ult [facility] [address] [place], [place] , [place] [phone] * (ABNORMAL) COMPREHENSIVE METABOLIC PANEL (01/10/2025 3:21 PM PRODUCE LABORER) SODIUM S/P/B 141 136 - 145 MMOL/L 01/10/2025 4:12 PM [facility] POTASSIUM S/P/B 4.1 3.5 - 5.1 MMOL/L 01/10/2025 4:12 PM [facility] CHLORIDE S/P/B 108 97 - 115 MMOL/L 01/10/2025 4:12 PM [facility] CO2 27.6 21.0 - 32.0 MMOL/L 01/10/2025 4:12 PM [facility] GLUCOSE 98 74 - 106 MG/DL 01/10/2025 4:12 PM [facility] BUN 18 7 - 18 MG/DL 01/10/2025 4:12 PM [facility] CREATININE S/P/B 1.53(H) 0.70 - 1.30 MG/DL 01/10/2025 4:12 PM [facility] CALCIUM S/P/B 9.7 8.5 - 10.1 MG/DL 01/10/2025 4:12 PM [facility] BILIRUBIN TOTAL S/P/B 0.6 0.2 - 1.0 MG/DL 01/10/2025 4:12 PM [facility] ALKALINE PHOSPHATASE S/P/B 60 45 - 115 U/L 01/10/2025 4:12 PM [facility] AST 18 15 - 37 U/L 01/10/2025 4:12 PM [facility] ALT 40 16 - 61 U/L 01/10/2025 4:12 PM [facility] TOTAL PROTEIN S/P/B 7.3 6.4 - 8.2 G/DL 01/10/2025 4:12 PM PRODUCE LABORER [facility] ALBUMIN S/P/B 4.2 3.4 - 5.0 G/DL 01/10/2025 4:12 PM PRODUCE LABORER [facility] ANION GAP 5.4 2.0 - 10.0 MMOL/L 01/10/2025 4:12 PM PRODUCE LABORER [facility] OSMOLALITY (CALC) 294 MOSM/KG 025 4:12 PM PRODUCE LABORER [facility] Comment:REFERENCE RANGE NOT ESTABLISHED GFR ESTIMATE 55(L) >90 ML/MIN/1. 73 M2 01/10/2025 4:12 PM PRODUCE LABORER [facility] GFR NOTES GFR REFERENCE S: 01/10/2025 4:12 PM [facility] Comment: THE ESTIMATED GFR IS CALCULATED USING THE 2020 CKD-EPI EQUATION. THE FOLLOWING CATEGORIES FOR GRADING RENAL FUNCTION ARE RECOMMENDED BY THE INTERNATIONAL SOCIETY OF NEPHROLOGY (KDIGO 2012 CLINICAL PRACTICE GUIDELINE). G1,NORMAL OR HIGH: >89 ml/min/1.73 m2 G2,MILDLY DECREASED: 60-89 ml/min/1.73 m2 G3A,MILDLY TO MODERATELY DECREASED: 45-59 ml/min/1.73 m2 G3B,MODERATELY TO SEVERELY DECREASED: 30-44 ml/min/1.73 m2 G4,SEVERELY DECREASED: 15-29 ml/min/1.73 m2 G5,KIDNEY FAILURE: <15 ml/min/1.73 m2 01/10/2025 3:21 PM PRODUCE LABORER Barbara Flowers MD LABORATORY Final Re sult [facility] [address] [place] [address], [id number] * TSH (01/10/2025 3:21 PM PRODUCE LABORER) TSH 2.960 0.358 - 3.740 uIU/ML 01/10/2025 4:12 PM PRODUCE LABORER [facility] Comment: ASSAY PERFORMED BY CHEMILUMINESCENCE METHODOLOGY USING [employer] [facility]. PATIENT RESULTS DETERMINED BY ASSAYS USING DIFFERENT MANUFACTURERS FOR METHODS MAY NOT BE COMPARABLE. 01/10/2025 3:21 PM PRODUCE LABORER Barbara Flowers MD LABORATORY Final Re sult [facility] [address] [place] [address], [id number] * XR CHEST PA+LAT (01/10/2025 3:17 PM PRODUCE LABORER) Anatomical Region Laterality Modality Chest Radiographic Christie ging 01/10/2025 4:43 PM PRODUCE LABORER Impressions 01/10/2025 4:46 PM PRODUCE LABORER IMPRESSION: No active chest disease or significant interval change. Ordered By: BARBARA FLOWERS Interpreted By: Raffy Sadler MD, 01/10/2025 4:43 PM Narrative 01/10/2025 4:46 PM PRODUCE LABORER [address] [address] EXAM DESCRIPTION: Chest - 2 views EXAM TIME : 01/10/2025 3:13 PM INDICATION: Amiodarone therapy. COMPARISON FILM : 11/19/2023 FINDINGS: Post sternotomy changes. Left sided ICD with leads in similar position. Stable mild cardiomegaly. Lungs clear of active disease. No consolidation, CHF or effusions. Mild linear scarring in the left base. No interstitial fibrotic-type changes. No acute bony abnormality. Procedure Note Raffy Sadler MD - 01/10/[address] [address] EXAM DESCRIPTION: Chest - 2 views EXAM TIME : 01/10/2025 3:13 PM INDICATION: Amiodarone therapy. COMPARISON FILM : 11/19/2023 FINDINGS: Post sternotomy changes. Left sided ICD with leads in similar position.Stable mild cardiomegaly. Lungs clear of active disease. No consolidation,CHF or effusions. Mild linear scarring in the left base. No interstitialfibrotic-type changes. No acute bony abnormality. IMPRESSION: No active chest disease or significant interval change. Ordered By: BARBARA FLOWERS Interpreted By: Raffy Sadler MD, 01/10/2025 4:43 PM us Barbara Flowers MD GENERAL IMAGING Final Re sult * ELECTROCARDIOGRAM (01/10/2025 2:05 PM PRODUCE LABORER) 01/10/2025 2:05 PM PRODUCE LABORER Narrative [facility] - 01/16/2025 7:46 AM PRODUCE LABORER [place] [address] [place] [address] Test Date: 2025-01-10 Pat Name: [facility] Department: 105 Room: Gender: Male Manager Document Control: [employer] : 1975 Requested By: BARBARA FLOWERS Order Number: [id number] Reading MD: Barbara Flowers Measurements Intervals [place] Rate: 89 P: 263 MA: 169 QRS: 265 QRSD: 185 T: 85 QT: 447 QTc: 545 Interpretive Statements ELECTRONIC ATRIAL PACEMAKER ELECTRONIC VENTRICULAR PACEMAKER ABNORMAL RHYTHM ECG UCE LABORER Procedure Note Barbara Flowers MD - 01/16/2025 [place] [address] [place] [address] Test Date: 2025-01-10 Pat Name: [facility] Department: 105 Room: Gender: Male Manager Document Control: [employer] : 1975 Requested By: BARBARA FLOWERS Order Number: [id number] Reading : Barbara Flowers Measurements Intervals [place] Rate: 89 P: 263 MA: 169 QRS: 265 QRSD: 185 T: 85 QT: 447 QTc: 545 Interpretive Statements ELECTRONIC ATRIAL PACEMAKER ELECTRONIC VENTRICULAR PACEMAKER ABNORMAL RHYTHM ECG UCE LABORER us Barbara Flowers MD PROCEDURES-ORDERABLE NO CHARGE Final Result [facility] * ECG 12 lead (HOSPITAL PERFORMED ONLY) (12/13/2024 11:45 AM PRODUCE LABORER) 12/13/2024 11:4 5 AM PRODUCE LABORER Narrative [facility] - 12/14/2024 6:14 AM PRODUCE LABORER [address] [place] [address] Test Date: 2024-12-13 Pat Name: [facility] Department: 3 Room: Gender: Male Manager Document Control: [employer] : 1975 Requested By: SAVITA VAUGHAN Order Number: [id number] Reading MD: Savita Vaughan Measurements Intervals [place] Rate: 84 P: 265 MA: 169 QRS: 246 QRSD: 185 T: 50 QT: 457 QTc: 542 Interpretive Statements ELECTRONIC ATRIAL PACEMAKER ELECTRONIC VENTRICULAR PACEMAKER ABNORMAL RHYTHM ECG UCE LABORER Procedure Note Savita Vaughan MD - 12/14/[address] [place] [address] Test Date: 2024-12-13 Pat Name: [facility] Department: 3 Room: Gender: Male Manager Document Control: [employer] : 1975 Requested By: SAVITA VAUGHAN Order Number: [id number] Reading JERZY Vaughan Measurements Intervals [place] Rate: 84 P: 265 MA: 169 QRS: 246 QRSD: 185 T: 50 QT: 457 QTc: 542 Interpretive Statements ELECTRONIC ATRIAL PACEMAKER ELECTRONIC VENTRICULAR PACEMAKER ABNORMAL RHYTHM ECG UCE LABORER us Savita Vaughan MD ECG ORDERABLES Final Result [facility] * LIPID PANEL (04/21/2023) CHOLESTEROL 127 HDL 53 LDL (CALCULATED) 59 CHOL/HDL RATIO 2.4 Narrative Resulting Agency Comment Savita Vaughan MD LABORATORY Final Result from Last 3 Months or Most Recently Relevant to Health Maintenance Insurance [employer] Advance Directives * Full Code (Latest Code Status on File) Date Activated Date Inactivated Comments 11/18/2023 10:34 PM 11/20/2023 2:06 PM * Full Code Date Activated Date Inactivated Comments 11/17/2023 4:24 AM 11/18/2023 10:34 PM Care Teams Dye Stand Loader Relationship Specialty Start Date End Date Geovanni Meyer MD [address] [place] [address] PCP - General FAMILY PRACTICE 08/06/21 Savita Vaughan MD [address] [place] [address] [place] Footwear Stitcher CARDIOVASCULAR DISEASE 10/31/21 El Tariq MD [address] [facility] [address] [place] [address] Vascular/Cardiologis t INTERVENTIONAL CARDIOLOGY 12/14/21 Barbara Flowers MD [address] [place] [address] [phone] Consulting Physician Electrophysiology 11/19/23 Tony Jimenez PA-C [address] [place] [phone] PHYSICIAN JAVA DEVELOPER ANALYST 11/19/23
--- OUTSIDE RECORDS SUMMARY | 2025-02-23 08:28 | XMS_ITS | Encounter Summary ---
Author Organization [facility] Address [address] [place] [id number] Care Team Providers Care Hardness Tester Name Role Phone Geovanni Meyer MD Primary Care Provider [phone] Sugar Patterson MD Unavailable El Tariq MD Unavailable [phone] Barbara Flowers MD Unavailable [phone] Tony Jimenez PA-C Unavailable [phone] Encounter Details Date Type Department Care Team (Late st Contact Info) Description 11/24/2023 Hospital Follow-up Call [facility] [address] [place] [address] Katiuska Zavala, RN Social History Tobacco Use Types Packs/Day Years Used Date Smoking Tobacco: Former Smokeless Tobacco: Never Snuff Alcohol Use Standard Drinks/Week Comments Yes 0 (1 standard drink = 0.6 oz pur e alcohol) 5-10 drinks per week [facility] Utilities Answer Date Recorded In the past 12 months has e electric, gas, oil, or water [employer] threatened to shut off services in your [...] place to sleep or slept in a retirement (including now)? No 11/17/2023 Sex and Gender Information Value Date Recorded Sex Assigned at Male 12/13/2024 11:32 AM MOTHER HELPER Legal Sex Male 10:18 AM CDT [...] Richey RN Active documented in this encounter Plan of Treatment Upcoming Encounters Date Type Department Care Team (Latest Contact Info) Description 03/17/2025 2:00 PM CDT [facility] [address] [place] [address] Tony Jimenez PA-C [address] [place] [address] 03/17/2025 2:00 PM CDT Allied Health/Nurse Visit [facility] eld [address] [place] [address] Barbara Flowers MD [address] [place] [address] 06/23/2025 1:00 AM CDT Allied Health/Nurse Visit [facility] [address] [place] [address] Barbara Flowers MD [address] [address] 07/20/2025 1:30 PM CDT Appointment [address] [place] [address] Sugar Patterson MD [address] [place] [phone] 07/25/2025 1:30 PM CDT Office Visit [facility] [place] [address] Sugar Patterson MD [address] [place] [address] [phone] documented as of this encounter Goals Goal Patient Goal Type Associated Problems Recent Progress Patient-Stated? Author Patient will return to prior living situation and remain independent in ADLs upon discharge from hospital Lifestyle No Michelle Self RN documented as of this encounter Visit Diagnoses Not on filedocumented in this encounter Care Teams Hardness Tester Relationship Specialty Start Date End Date Geovanni Meyer MD [address] [place] [address] PCP - General FAMILY PRACTICE 08/06/21 Sugar Patterson MD [address] [place] [phone] [place] Attending Pathologist CARDIOVASCULAR DISEASE 10/31/21 El Tariq MD [address] [place] [address] [phone] Vascular/Cardiologis t INTERVENTIONAL CARDIOLOGY 12/14/21 Barbara Flowers MD [address] [place] [address] [phone] Consulting Physician Electrophysiology 11/19/23 Tony Jimenez PA-C [address] [place] [phone] PHYSICIAN MOTION STUDY ENGINEER 11/19/23 documented as of this encounter
--- OUTSIDE RECORDS SUMMARY | 2025-02-23 08:28 | XMS_ITS | Encounter Summary ---
Author Organization [facility] Address [address] [place] [id number] Care Team Providers Care Adjunct History Instructor Name Role Phone Geovanni Meyer MD Primary Care Provider [phone] Sugar Patterson MD Unavailable El Tariq MD Unavailable [phone] Barbara Flowers MD Unavailable [phone] Tony Jimenez PA-C Unavailable [phone] Encounter Details Date Type Department Care Team (Latest Contact Info) Description 04/18/2022 [employer] Message [facility] [place] [phone] Sugar Patterson MD [address] [place] [address] Question regarding NM PHARM NUC STRESS TEST 1DAY Social History Tobacco Use Types Packs/Day Years Used Date Smoking Tobacco: Former Smokeless Tobacco: Never Snuff Alcohol Use Standard Drinks/Week Comments Yes 0 (1 standard drink = 0.6 oz pur e alcohol) 5-10 drinks per week Sex and Gender Information Value Date Recorded Sex Assigned at Male 12/13/2024 11:32 AM CLIENT MANAGER Legal Sex Male 10:18 AM CDT Gender Identity Male 03/28/2022 12:40 PM CDT Sexual Orientation Straight 03/28/2022 12 :40 PM CDT Occupation Industry Job Start Date Job End Date [employer] Not on file Not on file Not on file COVID-19 Exposure Response Date Recorded In the last 10 days, have yo u been in contact with someone who was confirmed or suspected to have Coronavirus/COVID-19? No / Unsure 04/12/2022 7:42 AM CDT documented as of this encounter Plan of Treatment Upcoming Encounters Date Type Department Care Team (Latest Contact Info) Description 03/17/2025 2:00 PM CDT Office Visit [facility] [address] [place] [phone] Tony Jimenez PA-C [address] [place] [phone] 03/17/2025 2:00 PM CDT Allied Health/Nurse Visit [facility] [address] [place] [phone] Barbara Flowers MD [address] [place] [phone] 06/23/2025 1:00 AM CDT Allied Health/Nurse Visit [facility] [address] [place] [phone] Barbara Flowers MD [address] [place] [phone] 07/20/2025 1:30 PM CDT Appointment [facility] [address] [place] [address] Sugar Patterson MD [address] [place] [phone] 07/25/2025 1:30 PM CDT [facility] [address] [place] [phone] Sugar Patterson MD [address] [place] [phone] documented as of this encounter Visit Diagnoses Not on filedocumented in this encounter Care Teams Adjunct History Instructor Relationship Specialty Start Date End Date Geovanni Meyer MD [address] [place] [address] PCP - General FAMILY PRACTICE 08/06/21 Sugar Patterson MD [address] [place] [address] [place] Speech Pathology Assistant CARDIOVASCULAR DISEASE 10/31/21 El Tariq MD [address] [address] Vascular/Cardiologis t INTERVENTIONAL CARDIOLOGY 12/14/21 Barbara Flowers MD [address] [address] Consulting Physician Electrophysiology 11/19/23 Tony Jimenez PA-C [address] [place] [phone] PHYSICIAN JUKE BOX SERVICER 11/19/23 documented as of this encounter
--- OUTSIDE RECORDS SUMMARY | 2025-02-23 08:28 | XMS_ITS | Data Portability ---
Author Organization [place] - [facility] OFFICE Address [facility] [place] [address] Care Team Providers Care Optical Glass Etcher Name Role Phone CLAY LOCO Primary Care Provider CLAY LOCO Referring Provider [phone] Assessment Encounter Date Assessment Date Assessment LastModified by Organization Details LastModified Time 02/01/2019 02/01/2019 Discussed with patient findings, diagnosis, and prognosis. Discussed evaluation and treatment options including risks and benefits with patient, and patient expressed understanding . The following interventions were recommended: heart healthy low-fat, low-sodium diet, continue regular exercise, 20 pound weight loss, monitor and record daily weight, continue current medications, needs to keep LDL less than 70 and HDL more than 40, maximum medical therapy with aggressive risk factor modification, and medical follow-up as noted. [email or web address] Not available 02/01/2019 10:44:33 05/05/2019 05/05/2019 Discussed with patient findings, diagnosis, and prognosis. Discussed evaluation and treatment options including risks and benefits with patient, and patient expressed understanding . The following interventions were recommended: heart healthy low-fat, low-sodium diet, continue regular exercise, 20 pound weight loss, monitor and record daily weight, continue current medications, needs to keep LDL less than 70 and HDL more than 40, maximum medical therapy with aggressive risk factor modification, and medical follow-up as noted. [email or web address] Not available 05/05/2019 10:37:54 05/19/2019 05/19/2019 Discussed with patient findings, diagnosis, and prognosis. Discussed evaluation and treatment options including risks and benefits with patient, and patient expressed understanding . The following interventions were recommended: heart healthy low-fat, low-sodium diet, continue regular exercise, 20 pound weight loss, monitor and record daily weight, continue current medications, needs to keep LDL less than 70 and HDL more than 40, maximum medical therapy with aggressive risk factor modification, and medical follow-up as noted. [email or web address] Not available 05/19/2019 15:55:08 07/28/2019 07/28/2019 Discussed with patient findings, diagnosis, and prognosis. Discussed evaluation and treatment options including risks and benefits with patient, and patient expressed understanding . The following interventions were recommended: heart healthy low-fat, low-sodium diet, continue regular exercise, 20 pound weight loss, monitor and record daily weight, continue current medications, needs to keep LDL less than 70 and HDL more than 40, maximum medical therapy with aggressive risk factor modification, and medical follow-up as noted. [email or web address] Not available 07/28/2019 17:47:46 01/05/2020 01/05/2020 Discussed with patient findings, diagnosis, and prognosis. Discussed evaluation and treatment options including risks and benefits with patient, and patient expressed understanding . The following interventions were recommended: heart healthy low-fat, low-sodium diet, continue regular exercise, 20 pound weight loss, monitor and record daily weight, continue current medications, needs to keep LDL less than 70 and HDL more than 40, maximum medical therapy with aggressive risk factor modification, and medical follow-up as noted. [email or web address] Not available 01/05/2020 15:50:46 Plan of Treatment Reminders Order Date Submit Date Provider Last Modified By Organization Details Last Modified Time Details Appointments None recorded. Lab None recorded. Referral None recorded. Procedures None recorded. Surgeries None recorded. Imaging electrocar diogram 2018 019 ANUPAM Not available 9 17:22:43 electrocar diogram 2018 019 ANUPAM Not available 9 14:31:59 Medication Orders rosuvastat in 40 mg tablet 2019 020 INTERFACE [id number], [address] [place], [address], 0 17:56:47 Lasix 20 mg tablet 2018 019 [email or web address] [id number], [address] [place], [address], 9 17:05:44 Patient TargetsNo targets recorded. Patient Instructions Encounter Date Encounter Id Patient Instructions Last Modified By Organization Details Last Modified Time 02/01/2019 [id number] When You Want to Lose Weight: Care Instructions Not available 02/01/2019 11:48:47 atrial fibrillation: care instructions [email or web address] Not available 02/01/2019 11:48:47 high blood pressure: care instructions [email or web address] Not available 02/01/2019 11:48:47 learning about high blood pressure [email or web address] Not available 02/01/2019 11:48:47 high cholesterol : care instructions [email or web address] Not available 02/01/2019 11:48:47 learning about low-fat eating Not available 02/01/2019 11:48:47 05/05/2019 [id number] heart attack: ca re instructions Not available 05/05/2019 17:15:21 When You Want to Lose Weight: Care Instructions Not available 05/05/2019 11:22:19 heart failure: care instructions [email or web address] Not available 05/05/2019 17:15:21 high cholesterol : care instructions Not available 05/05/2019 11:22:19 learning about low-fat eating Not available 05/05/2019 11:22:19 atrial fibrillation: care instructions Not available 05/05/2019 11:22:19 high blood pressure: care instructions Not available 05/05/2019 11:22:19 learning about high blood pressure Not available 05/05/2019 11:22:19 Weight loss 20 pounds Exercise advised Low cholesterol diet advised Low sodium diet advised. Not available 05/05/2019 11:04:31 Patient was seen and evaluated by {{Mega Nicole METAL TILE LATHER-C*}}. Plan of care was discussed with collaborating physician. Note cosigned by {{Mega Chatman MD*}}. Not available 05/05/2019 11:04:25 05/19/2019 [id number] heart attack: ca re instructions [email or web address] Not available 05/19/2019 17:10:37 When You Want to Lose Weight: Care Instructions Not available 05/19/2019 17:10:37 heart failure: care instructions [email or web address] Not available 05/19/2019 17:10:37 high cholesterol : care instructions [email or web address] Not available 05/19/2019 17:10:37 learning about low-fat eating [email or web address] Not available 05/19/2019 17:10:37 atrial fibrillation: care instructions [email or web address] Not available 05/19/2019 17:10:37 high blood pressure: care instructions [email or web address] Not available 05/19/2019 17:10:37 learning about high blood pressure [email or web address] Not available 05/19/2019 17:10:37 07/28/2019 [id number] heart attack: ca re instructions [email or web address] Not available 07/28/2019 18:00:38 When You Want to Lose Weight: Care Instructions [email or web address] Not available 07/28/2019 18:00:38 heart failure: care instructions [email or web address] Not available 07/28/2019 18:00:38 high cholesterol : care instructions [email or web address] Not available 07/28/2019 18:00:38 learning about low-fat eating Not available 07/28/2019 18:00:38 atrial fibrillation: care instructions Not available 07/28/2019 18:00:38 high blood pressure: care instructions [email or web address] Not available 07/28/2019 18:00:38 learning about high blood pressure [email or web address] Not available 07/28/2019 18:00:38 01/05/2020 [id number] heart attack: ca re instructions [email or web address] Not available 01/05/2020 17:56:45 When You Want to Lose Weight: Care Instructions [email or web address] Not available 01/05/2020 17:56:45 heart failure: care instructions [email or web address] Not available 01/05/2020 17:56:44 high cholesterol : care instructions [email or web address] Not available 01/05/2020 17:56:44 learning about low-fat eating [email or web address] Not available 01/05/2020 17:56:44 atrial fibrillation: care instructions [email or web address] Not available 01/05/2020 17:56:45 high blood pressure: care instructions [email or web address] Not available 01/05/2020 17:56:44 learning about high blood pressure [email or web address] Not available 01/05/2020 17:56:44 Reason for Referral None Reported. Results Created Date Observation Date Name Description Value Unit Range Abnormal Flag Note LastModifiedBy Organization Detail LastModifiedTime 02/02/20 19 02/01/2019 elect rocar diogr am No observ ation record ed. [email or web address] Not Available 02/08 12:03:40 04/04/20 19 03/31/2019 , echoc ardio gram No observ ation record ed. [email or web address] Not Available 2018 14:53:55 05/11/20 19 05/05/2019 elect rocar diogr am No observ ation record ed. [email or web address] Brayden Chatman MD [address] [facility] [address], [place], [address], 05/11/2019 17:23:08 05/18/20 19 03/31/2019 trega aguirre ar stres s test (PROC ) No observ ation record ed. [email or web address] Not Available 2018 13:03:13 05/21/20 19 05/19/2019 elect rocar diogr am No observ ation record ed. [email or web address] Brayden Chatman MD [address] [facility] [address], [place], [address], 05/21/2019 12:45:03 07/03/20 19 06/28/2019 , echoc ardio gram No observ ation record ed. est [facility] [address] [facility] [address], [place], [address], 07/27/2019 11:35:39 01/19/20 20 01/05/2020 elect rocar diogr am No observ ation record ed. [email or web address] Not Available 2019 09:43:11 Result Notes None recorded. Problems Name Problem SNOMED Code Status Onset Date Resolution Date Notes Provider Name and Address Organization Details Recorded Time Benign essential hypertensi on 0692940 Active 2016 EDVIN [place] [facility] 7 15:08:44 Atrial fibrillati on 36158821 Active 2016 with rapid ventricula r response Felix Felton [facility] 7 15:16:42 Hypothyroi dism 29109642 Active 2016 Felix Felton [facility] 7 15:16:51 Morbid obesity 374865685 Active 2016 Felix Felton [facility] 7 15:17:00 Coronary arterioscl erosis 02409998 Active 2016 [facility]: 03/31/17 : 3-vessel coronary artery disease. Anomalous circ, left femoral RCA cusp. Severe left ventricula r diastolic dysfunctio n. Status post recent myocardial infarction . Felix Felton [facility] 7 15:20:53 History of smoking Active 2016 Quit 03/2017 Hortenciakaren Byrdgiovanni [facility] 8 14:53:13 Myocardial infarction 72555174 Active 2016 Mega Kelley [facility] 7 16:46:15 Hyperlipid emia 89099547 Active 2016 Mega Benson [facility] 7 16:54:32 Ischemic congestive cardiomyop athy 149042666 Active 2018 Sivan Nicole [facility] 9 13:27:54 Systolic heart failure 509155334 Active 2018 Sivan Nicole [facility] 9 13:37:41 Problem Notes None recorded. Procedures Surgical History Date Name Laterality Status Provider Name and Address Organization Details Recorded Time Cardiac Catheterization completed Felix Felton [facility] 04/26/2017 15:26:11 Imaging Results Imaging Date Name Status LastModified by Organization Details LastModified Time 02/01/2019 electrocardiogram completed [email or web address] Informa tion not available 02/08/2019 12:03:40 03/31/2019 US, echocardiogram completed Inform ation not available 05/04/2019 14:53:55 05/05/2019 electrocardiogram completed [email or web address] Brayden Barber MD [address] [facility] [address], [place], [address], 05/11/2019 17:23:08 03/31/2019 treadmill nuclear stress test (PROC) completed Tilt Information not available 05/18/2019 13:03:13 05/19/2019 electrocardiogram completed [email or web address] Brayden Barber MD [address] [facility] [address], [place], [address], 05/21/2019 12:45:03 06/28/2019 US, echocardiogram completed [facility] [address] [facility] [address], [place], [address], 07/27/2019 11:35:39 01/05/2020 electrocardiogram completed [email or web address] Informa tion not available 01/25/2020 09:43:11 Procedure Notes None recorded. Medical Equipment None Reported. Allergies No known drug allergies Medications Name Sig Start Date Stop Date Status Note LastModified by Organization Details LastModified Time atorvastati n 40 mg tablet 1 tab qd 04/29 completed Not Available Not Available Not Available hydrocodone 7.5 mg-ibuprofe n 200 mg tablet 10/29 completed Not Available Not Available Not Available amiodarone 200 mg tablet TAKE 1 TABLET BY MOUTH EVERY DAY 04/01 completed Not Available Not Available Not Available hydrocodone 5 mg-acetamin ophen 325 mg tablet 08/03 completed Not Available Not Available Not Available lisinopril 20 mg tablet Take 1 tablet twice a day by oral route as directed. 06/12 completed Not Available Not Available Not Available metoprolol succinate ER 100 mg tablet,exte nded release 24 hr TAKE 1 TABLET BY MOUTH EVERY DAY active Not Available Not Available No t Available penicillin V potassium 500 mg tablet 08/03 completed Not Available Not Available Not Available spironolact one 25 mg tablet TAKE 1 TABLET BY MOUTH EVERY DAY active Not Available Not Available No t Available amoxicillin 875 mg tablet 10/29 completed Not Available Not Available Not Available metoprolol tartrate 50 mg tablet 1 tab bid 04/29 completed Not Available Not Available Not Available nitroglycer in 0.[address] 1 tablet by sublingua l route as needed. 06/12 completed Not Available Not Available Not Available amoxicillin 400 mg/5 mL oral suspension 10/29 completed Not Available Not Available Not Available furosemide 20 mg tablet Take 1 tablet every day by oral route as needed. 05/19 completed Not Available Not Available Not Available lisinopril 40 mg tablet TAKE 1 TABLET BY MOUTH EVERY DAY active Not Available Not Available No t Available Tylenol 650 mg tablet,exte nded release Take 1 tablet every 8 hours by oral route. 04/29 completed Not Available Not Available Not Available Adult Low Dose Aspirin 81 mg tablet,aleshia yed release Take 1 tablet every day by oral route as directed. active Not Available Not Available No t Available rosuvastati n 10 mg tablet Take 1 tablet every day by oral route. 06/12 completed Not Available Not Available Not Available rosuvastati n 20 mg tablet TAKE 1 TABLET BY MOUTH AT BEDTIME 01/08 completed Not Available Not Available Not Available rosuvastati n 40 mg tablet TAKE 1 TABLET BY MOUTH EVERYDAY AT BEDTIME active Not Available Not Available No t Available metoprolol tartrate 25 mg tablet Take 1 tablet twice a day by oral route. 04/29 completed Not Available Not Available Not Available melatonin 5 mg capsule Take 1 capsule by oral route as needed. 07/30 completed Not Available Not Available Not Available Brilinta 90 mg tablet TAKE 1 TABLET BY MOUTH TWICE A DAY 04/01 completed Not Available Not Available Not Available Brilinta 60 mg tablet TAKE ONE TABLET BY MOUTH TWICE DAILY active Not Available Not Available No t Available Vitals Date Recorded Body height Body mass index (BMI) Body weight Oxygen saturation Oxygen saturation in Arterial blood by Pulse oximetry Heart rate Systolic blood pressure Diastolic blood pressure Provider Name and Address Organization Details Last Updated DateTime 9 193.04 cm 37.6 kg/m2 378113. 04 g 97 % 97 % 65 /min 118 mm[Hg] 82 mm[Hg] SUGEY Bates [place] [facility] 9 11:01:21 Date Recorded Body height Body mass index (BMI) Body weight Heart rate Oxygen saturation Oxygen saturation in Arterial blood by Pulse oximetry Systolic blood pressure Diastolic blood pressure Provider Name and Address Organization Details Last Updated DateTime 9 193.04 cm 39.6 kg/m2 696201. 52 g 65 /min 97 % 97 % 112 mm[Hg] 82 mm[Hg] Francine Duran [facility] 9 10:48:41 Date Recorded Body height Body mass index (BMI) Body weight Oxygen saturation Oxygen saturation in Arterial blood by Pulse oximetry Heart rate Systolic blood pressure Diastolic blood pressure Provider Name and Address Organization Details Last Updated DateTime 9 193.04 cm 39.3 kg/m2 732468. 34 g 97 % 97 % 65 /min 128 mm[Hg] 98 mm[Hg] JENNIFER ROMAN [facility] 9 16:05:24 Date Recorded Body height Body mass index (BMI) Body weight Heart rate Oxygen saturation Oxygen saturation in Arterial blood by Pulse oximetry Systolic blood pressure Diastolic blood pressure Provider Name and Address Organization Details Last Updated DateTime 9 193.04 cm 40.4 kg/m2 174137. 67 g 68 /min 94 % 94 % 150 mm[Hg] 90 mm[Hg] Lissett Talleyn [facility] 9 16:47:31 Date Recorded Body height Body mass index (BMI) Body weight Heart rate Oxygen saturation Oxygen saturation in Arterial blood by Pulse oximetry Systolic blood pressure Diastolic blood pressure Provider Name and Address Organization Details Last Updated DateTime 0 193.04 cm 41.6 kg/m2 841935. 59 g 69 /min 97 % 97 % 138 mm[Hg] 90 mm[Hg] JOHN PINA [facility] 0 16:06:03 Social History Question Answer Notes LastModified by Organizat ion Details LastModified Time Tobacco Smoking Status Former Smoker quit 03/22/17 Annie greco [facility] 04/29/2017 15:54:09 What Is Your Level Of Alcohol Consumption? None [email or web address] Information not available 04/29/2017 What Is Your Level Of Caffeine Consumption? Occasional [email or web address] Information not available 04/29/2017 How Much Tobacco Do You Chew? None [email or web address] Information not available 04/29/2017 What Type Of Diet Are You Following? CARDIAC [email or web address] Information not available 04/29/2017 Which Illicit Or Recreational Drugs Have You Used? No [email or web address] Information not available 04/29/2017 Do You Or Have You Ever Used E-cigarettes Or Vape? Never Used Electronic Cigarettes Information not available 01/03/2020 What Is Your Occupation? [employer] [email or web address] Information not available 04/29/2017 Live Alone Or With Others? With Others [email or web address] Information not available 04/29/2017 Marital Status Informatio n not available 04/26/2017 What Was The Date Of Your Most Recent Tobacco Screening? 05/19/2019 Information not available 06/10/2019 How Many Children Do You Have? 1 [email or web address] Information not available 04/29/2017 How Much Tobacco Do You Smoke? No [email or web address] Information not available 04/29/2017 General Stress Level Medium [email or web address] Information not available 04/29/2017 How Many Years Have You Smoked Tobacco? 30 Information not available 04/26/2017 Sex: Unknown Functional Status Question Answer Note LastModified by Organization D etails LastModified Time What is your exercise level? None [email or web address] Information not available 04/29/2017 Mental Status None recorded. Family History Relationship Description Onset Age of this Age Resolved Age Notes LastModified by Organization Details LastModified Time Father Father 40 68 with Conges tive heart failue [email or web address] Not available 04/26/2017 15:11:50 Father Diabetes mellitus [email or web address] Not available 2016 15:12:07 Father Heart disease [email or web address] Not available 2016 15:53:06 Father Myocardial infarction [email or web address] Not available 04/29 15:53:14 Father Hypertensive disorder [email or web address] Not available 2016 15:53:39 Sister Diabetes mellitus hmesto Not available 2016 15:12:07 Sister Hypertensive disorder hmesto Not available 2016 15:12:34 Brother Hypertensive disorder [email or web address] Not available 2016 15:12:34 Paternal Grandmother Diabetes mellitus [email or web address] Not available 2016 15:53:27 Mother Hypertensive disorder [email or web address] Not available 2016 15:53:42 Medical History Condition Response Coronary Artery Disease Y Atrial Fibrillation Y Thyroid Disease Y Myocardial Infarction Y Hyperlipidemia Y Hypertension Y Past Encounters Encounter ID Performer Location Encounter Start Date Encounter Closed Date Diagnosis/Indication Diagnosis SNOMED-CT Code Diagnosis ICD10 Code Diagnosis Note [id number] Brayden Chatman MD [place] OFF[facility] [address] [place] [address] 04/29/2017 15:25:24 04/30/2017 11:10:31 History of smoking 4757927163 1929041 Z87.891 Pt has quit since CABG. Benign ess ential hypertension 0475070 I10 Patient's blood pressure is {{well-con trolled* s omewhat well-contr olled not well-contr olled}} on present medical therapy. Patient is {{tolerati ng, without difficulty ,* having side effects with}} the current medication s. I have {{not made* made the following} } changes to the current regimen. {{ Patient is advised to maintain a blood pressure diary.}} Patient was advised to eat a low-sodium diet (2 grams sodium or less daily). Coronary arteriosclerosis 51599576 I25.10 S/p [place] and CABG. Obtain repeat echo to f/u on mod.-sever e LV systolic dysfunctio n. Continue ASA, Brilinta, metoprolol , lisinopril . Needs to keep LDL less than 70, and HDL more than 40. Changed to Crestor 04/29/17 with FLP in 4 weeks. Begin cardiac rehab at [place]. Hyperlipidemia 33860228 E78.5 Needs to keep LDL less than 70, and HDL more than 40. At time of recent hospitatiz ation, LDL 100. Atrial fibrillation 4943 6004 I48.91 Had afib with recent hospitaliz ation. EKG today with NSR. Continue amiodarone and ASA. [id number] Mega [facility] Office [address] [place] [address] 06/12/2017 14:17:39 06/16/2017 09:02:04 Atrial fibrillation 33899488 I48.91 Had afib with recent hospitaliz ation. EKG today with sinus bradycardi a. Continue amiodarone and ASA. Coronary arteriosclerosis 83743904 I25.10 S/p [place] and CABG. Obtained repeat echo to f/u on mod.-sever e LV systolic dysfunctio n:05/12/17 ECHO: LV chamber is moderately dilated. There is mild concentric LV hypertroph y. The estimated left ventricle ejection fraction is 35-40%(abn ormal). LV relaxation is impaired. Left Atrium chamber is mild dilated. Sinus bradycardi a. Previously , had 03/24/2017 ECHO: Mild enlargemen t of left ventricle cavity. Moderate global left ventricula r systolic dysfunctio n. These segments of the LV are hypokineti c: inferior segment. Normal appearance of the mitral valve. Mild mitral valve regurgitat ion. Continue ASA, Brilinta, metoprolol , lisinopril . Began Aldactone 25 mg qd 06/12/17. BMP 3 wks. Needs to keep LDL less than 70, and HDL more than 40. Began cardiac rehab at [place]. History of smoking 04658 37937 2438590 Z87.891 Pt has quit since CABG. Benign ess ential hypertension 2997543 I10 Patient's blood pressure is {{well-con trolled* s omewhat well-contr olled not well-contr olled}} on present medical therapy. Patient is {{tolerati ng, without difficulty ,* having side effects with}} the current medication s. I have {{not made* made the following} } changes to the current regimen. {{ Patient is advised to maintain a blood pressure diary.}} Patient was advised to eat a low-sodium diet (2 grams sodium or less daily). Hyperlipidemia 60989473 E78.5 Needs to keep LDL less than 70, and HDL more than 40. At time of recent hospitaliz ation, LDL 100. On 05/30/17 : TC 139 ,TG 65 ,HDL 53,LDL 73 , Increased rosuvastat in to 20 mg qd 06/12/17. [id number] Mega Benson [place] [facility] [address] [place] [address] 07/30/2017 14:51:50 07/31/2017 10:18:29 Benign essential hypertension 2275610 I10 Patient's blood pressure is {{well-con trolled* s omewhat well-contr olled not well-contr olled}} on present medical therapy. Patient is {{tolerati ng, without difficulty ,* having side effects with}} the current medication s. I have {{not made* made the following} } changes to the current regimen. {{ Patient is advised to maintain a blood pressure diary.}} Patient was advised to eat a low-sodium diet (2 grams sodium or less daily). Atrial fibrillation 4943 6004 I48.91 No recurrence . Had afib with [place]/hosp[place] lization. EKG recently with sinus bradycardi a. Continue amiodarone and ASA. Coronary arteriosclerosis 33577648 I25.10 S/p [place] and CABG. Obtained repeat echo to f/u on mod.-sever e LV systolic dysfunctio n:05/12/17 ECHO: LV chamber is moderately dilated. There is mild concentric LV hypertroph y. The estimated left ventricle ejection fraction is 35-40%(abn ormal). LV relaxation is impaired. Left Atrium chamber is mild dilated. Sinus bradycardi a. Previously , had 03/24/2017 ECHO: Mild enlargemen t of left ventricle cavity. Moderate global left ventricula r systolic dysfunctio n. These segments of the LV are hypokineti c: inferior segment. Normal appearance of the mitral valve. Mild mitral valve regurgitat ion. Continue ASA, Brilinta, metoprolol , lisinopril . Began Aldactone 25 mg qd 06/12/17. BMP revealed K 5.1 and pt will reduce daily banana. Needs to keep LDL less than 70, and HDL more than 40. Completed cardiac rehab at [place]. History of smoking 27541 [id number] Z87.891 Pt has quit since CABG. Hyperlipidemia [id number] E78.5 Needs to keep LDL less than 70, and HDL more than 40. At time of recent hospitaliz ation, LDL 100. On 05/30/17 : TC 139 ,TG 65 ,HDL 53,LDL 73 , Increased rosuvastat in to 20 mg qd 06/12/17. [id number] [facility] [address] [place] [address] 10/29/2017 15:46:50 10/30/2017 10:12:30 Hyperlipidemia [id number] E78.5 Needs to keep LDL less than 70, and HDL more than 40. At time of recent hospitaliz ation, LDL 100. On 05/30/17 : TC 139 ,TG 65 ,HDL 53,LDL 73 , Increased rosuvastat in to 20 mg qd 06/12/17. Benign ess ential hypertension 5882574 I10 Patient's blood pressure is {{well-con trolled* s omewhat well-contr olled not well-contr olled}} on present medical therapy. Patient is {{tolerati ng, without difficulty ,* having side effects with}} the current medication s. I have {{not made* made the following} } changes to the current regimen. {{ Patient is advised to maintain a blood pressure diary.}} Patient was advised to eat a low-sodium diet (2 grams sodium or less daily). Atrial fibrillation 4943 6004 I48.91 No recurrence . Had afib with IL/hospita lization. EKG recently with sinus bradycardi a. Continue amiodarone and ASA. For amiodarone monitoring will need to follow yearly ECG, CXR, AST/ALT, TSH. Obtain CMP/Mg/TSH . Coronary arteriosclerosis 60611279 I25.10 S/p IL and CABG. Obtained repeat echo to f/u on mod.-sever e LV systolic dysfunctio n:05/12/17 ECHO: LV chamber is moderately dilated. There is mild concentric LV hypertroph y. The estimated left ventricle ejection fraction is 35-40%(abn ormal). LV relaxation is impaired. Left Atrium chamber is mild dilated. Sinus bradycardi a. Previously , had 03/24/2017 ECHO: Mild enlargemen t of left ventricle cavity. Moderate global left ventricula r systolic dysfunctio n. These segments of the LV are hypokineti c: inferior segment. Normal appearance of the mitral valve. Mild mitral valve regurgitat ion. Continue ASA, Brilinta, metoprolol , lisinopril . Began Aldactone 25 mg qd 06/12/17. BMP revealed K 5.1 and pt will reduce daily banana. Repeat CMP/Mg. Needs to keep LDL less than 70, and HDL more than 40. Completed cardiac rehab at [place]. Obtain echo to evaluate for structural /functiona l disease and consider stopping amiodarone for IL/CABG related afib if LV systolic function stable or improved. History of smoking 21496 80343 [id number] Z87.891 Pt has quit since CABG. [address] [facility] [place] [facility] [place] [address] 01/28/2018 13:50:45 01/31/2018 13:36:34 Coronary arteriosclerosis [id number] I25.10 S/p IL and CABG. Obtained repeat echo to f/u on stable moderate LV systolic dysfunctio n: Had ECHO on 01/07/18: LV chamber is moderately dilated. LV wall thickness is moderately increased. There are multiple segmental wall motion abnormalit ies. The estimated left ventricle ejection fraction is 35-40%(abn ormal).The re is increased left atrial pressure and Grade II diastolic dysfunctio n. 05/12/17 ECHO: LV chamber is moderately dilated. There is mild concentric LV hypertroph y. The estimated left ventricle ejection fraction is 35-40%(abn ormal). LV relaxation is impaired. Left Atrium chamber is mild dilated. Sinus bradycardi a. Continue ASA, Brilinta (reduce dose after 03/2018 to 60 mg bid), metoprolol , lisinopril . Began Aldactone 25 mg qd 06/12/17. BMP revealed K 5.1 and pt will reduce daily banana. Needs to keep LDL less than 70, and HDL more than 40. 01/07/18: TSH 2.51, Mg 2, K 5 Completed cardiac rehab at [place] 07/2017. Had ECHO on 01/07/18: LV chamber is moderately dilated. LV wall thickness is moderately increased. There are multiple segmental wall motion abnormalit ies. The estimated left ventricle ejection fraction is 35-40%(abn ormal).The re is increased left atrial pressure and Grade II diastolic dysfunctio n. Hyperlipidemia 68262176 E78.5 Needs to keep LDL less than 70, and HDL more than 40. At time of recent hospitaliz ation, LDL 100. On 05/30/17 : TC 139 ,TG 65 ,HDL 53,LDL 73 , Increased rosuvastat in to 20 mg qd 06/12/17. Obtain FLP. Benign ess ential hypertension 5248119 I10 Patient's blood pressure is {{well-con trolled* s omewhat well-contr olled not well-contr olled}} on present medical therapy. Patient is {{tolerati ng, without difficulty ,* having side effects with}} the current medication s. I have {{not made* made the following} } changes to the current regimen. {{ Patient is advised to maintain a blood pressure diary.}} Patient was advised to eat a low-sodium diet (2 grams sodium or less daily). Atrial fibrillation 4943 6004 I48.91 No recurrence . Had afib with IL/hospita lization. EKG recently with sinus bradycardi a. Continue amiodarone and ASA. For amiodarone monitoring will need to follow yearly ECG, CXR, AST/ALT, TSH. 01/07/18: TSH 2.51, Mg 2, K 5 Stop amiodarone as per patient preference . Obtain 24 Hr Holter in 2 months. History of smoking 80284 49575 [id number] Z87.891 Pt has quit since CABG. [address] [facility] OFF[facility] [address] [place] [address] 04/01/2018 11:02:45 04/02/2018 09:54:48 Coronary arteriosclerosis 93794973 I25.10 S/p IL and CABG. Obtained repeat echo to f/u on stable moderate LV systolic dysfunctio n: Had ECHO on 01/07/18: LV chamber is moderately dilated. LV wall thickness is moderately increased. There are multiple segmental wall motion abnormalit ies. The estimated left ventricle ejection fraction is 35-40%(abn ormal).The re is increased left atrial pressure and Grade II diastolic dysfunctio n. 05/12/17 ECHO: LV chamber is moderately dilated. There is mild concentric LV hypertroph y. The estimated left ventricle ejection fraction is 35-40%(abn ormal). LV relaxation is impaired. Left Atrium chamber is mild dilated. Sinus bradycardi a. Continue ASA, Brilinta (reduced dose 04/01/2018 to 60 mg bid), metoprolol , lisinopril . Began Aldactone 25 mg qd 06/12/17. BMP revealed K 5.1 and pt will reduce daily banana. Needs to keep LDL less than 70, and HDL more than 40. 01/07/18: TSH 2.51, Mg 2, K 5 Completed cardiac rehab at [place] 07/2017. Had ECHO on 01/07/18: LV chamber is moderately dilated. LV wall thickness is moderately increased. There are multiple segmental wall motion abnormalit ies. The estimated left ventricle ejection fraction is 35-40%(abn ormal).The re is increased left atrial pressure and Grade II diastolic dysfunctio n. Hyperlipidemia 07318454 E78.5 Needs to keep LDL less than 70, and HDL more than 40. At time of recent hospitaliz ation, LDL 100. On 05/30/17 : TC 139 ,TG 65 ,HDL 53,LDL 73 , Increased rosuvastat in to 20 mg qd 06/12/17. Obtained FLP 46 03/27/18. Benign ess ential hypertension 5429251 I10 Patient's blood pressure is {{well-con trolled* s omewhat well-contr olled not well-contr olled}} on present medical therapy. Patient is {{tolerati ng, without difficulty ,* having side effects with}} the current medication s. I have {{not made* made the following} } changes to the current regimen. {{ Patient is advised to maintain a blood pressure diary.}} Patient was advised to eat a low-sodium diet (2 grams sodium or less daily). Atrial fibrillation 4943 6004 I48.91 No recurrence . In regular rhythm on exam. Had afib with IL/hospita lization. EKG recently with sinus bradycardi a. Continue ASA. 01/07/18: TSH 2.51, Mg 2, K 5 Stopped amiodarone 01/2018 as per patient preference . Obtain 24 Hr Holter now, 2 months after stopping amiodarone . History of smoking 67144 06675 [id number] Z87.891 Pt has quit since CABG. [id number] [facility] OFFICE [address] [place] [address] 08/03/2018 10:33:31 08/03/2018 11:34:17 Coronary arteriosclerosis 98051696 I25.10 S/p IL and CABG. Obtained repeat echo to f/u on stable moderate LV systolic dysfunctio n: Had ECHO on 01/07/18: LV chamber is moderately dilated. LV wall thickness is moderately increased. There are multiple segmental wall motion abnormalit ies. The estimated left ventricle ejection fraction is 35-40%(abn ormal).The re is increased left atrial pressure and Grade II diastolic dysfunctio n. 05/12/17 ECHO: LV chamber is moderately dilated. There is mild concentric LV hypertroph y. The estimated left ventricle ejection fraction is 35-40%(abn ormal). LV relaxation is impaired. Left Atrium chamber is mild dilated. Sinus bradycardi a. Continue ASA, Brilinta (reduced dose 04/01/2018 to 60 mg bid), metoprolol , lisinopril . Began Aldactone 25 mg qd 06/12/17. BMP revealed K 5.1 and pt will reduce daily banana.12/19 12/04: TSH 2.51, Mg 2, K 5.0 . Needs to keep LDL less than 70, and HDL more than 40. Completed cardiac rehab at [place] 07/2017. Hyperlipidemia 01313137 E78.5 Needs to keep LDL less than 70, and HDL more than 40. At time of recent hospitaliz ation, LDL 100. On 05/30/17 : TC 139 ,TG 65 ,HDL 53,LDL 73 , Increased rosuvastat in to 20 mg qd 06/12/17. Obtained FLP LDL 46 03/27/18. Benign ess ential hypertension 1778751 I10 Patient's blood pressure is {{well-con trolled* s omewhat well-contr olled not well-contr olled}} on present medical therapy. Patient is {{tolerati ng, without difficulty ,* having side effects with}} the current medication s. I have {{not made* made the following} } changes to the current regimen. {{ Patient is advised to maintain a blood pressure diary.*}} Patient was advised to eat a low-sodium diet (2 grams sodium or less daily). BP monitor. Atrial fibrillation 4943 6004 I48.91 No recurrence . In regular rhythm on exam and EKG. Had afib with IL/hospita lization. EKG recently with sinus bradycardi a. Continue ASA. 01/07/18: TSH 2.51, Mg 2, K 5 Stopped amiodarone 01/2018 as per patient preference . Obtain 24 Hr Holter now, 6 months after stopping amiodarone . History of smoking 87484 10605 [id number] Z87.891 Pt has quit since CABG. [address] [facility] [place] [facility] [address] [place] [address] 02/01/2019 10:40:43 02/01/2019 11:49:14 Coronary arteriosclerosis 37732588 I25.10 S/p IL and CABG. Obtain repeat echo to evaluate cardiac structure and function, given moderate LV systolic dysfunctio n and exertional dyspnea. Had ECHO on 01/07/18: LV chamber is moderately dilated. LV wall thickness is moderately increased. There are multiple segmental wall motion abnormalit ies. The estimated left ventricle ejection fraction is 35-40%(abn ormal).The re is increased left atrial pressure and Grade II diastolic dysfunctio n. 05/12/17 ECHO: LV chamber is moderately dilated. There is mild concentric LV hypertroph y. The estimated left ventricle ejection fraction is 35-40%(abn ormal). LV relaxation is impaired. Left Atrium chamber is mild dilated. Sinus bradycardi a. Continue ASA, Brilinta (reduced dose 04/01/2018 to 60 mg bid), metoprolol , lisinopril . Began Aldactone 25 mg qd 06/12/17. BMP revealed K 5.1 and pt will reduce daily banana./12/04: TSH 2.51, Mg 2, K 5.0 . Needs to keep LDL less than 70, and HDL more than 40. Completed cardiac rehab at [place] 07/2017. Hyperlipidemia 41086328 E78.5 Needs to keep LDL less than 70, and HDL more than 40. At time of recent hospitaliz ation, LDL 100. On 05/30/17 : TC 139 ,TG 65 ,HDL 53,LDL 73 , Increased rosuvastat in to 20 mg qd 06/12/17. Obtained FLP LDL 46 03/27/18. Obtain FLP. Benign ess ential hypertension 6344789 I10 Patient's blood pressure is {{well-con trolled* s omewhat well-contr olled not well-contr olled}} on present medical therapy. Patient is {{tolerati ng, without difficulty ,* having side effects with}} the current medication s. I have {{not made* made the following} } changes to the current regimen. {{ Patient is advised to maintain a blood pressure diary.*}} Patient was advised to eat a low-sodium diet (2 grams sodium or less daily). BP monitor. Atrial fibrillation 4943 6004 I48.91 No recurrence . In regular rhythm on exam and EKG. Had afib with IL/hospita lization. EKG recently with sinus bradycardi a. Continue ASA. 01/07/18: TSH 2.51, Mg 2, K 5 Stopped amiodarone 01/2018 as per patient preference . Continue metoprolol . Obtained 24 Hr Holter now, 6 months after stopping amiodarone : Had Holter Monitor 08/03/18: Normal sinus rhythm. Sinus bradycardi a. Few episodes of ventricula r bigeminy and trigeminy. Frequent PAC's and PVC's but not correlated with symptoms. Obtain BMP, Mg, TSH given frequent PVCs. History of smoking 09807 98727 [id number] Z87.891 Pt has quit since CABG. Morbid obesity 176474158 E66.01 20 lb. weight loss recommende d over the next 2 months. [id number] [facility] [place] [facility] [address] [place] [address] 05/05/2019 10:35:17 05/31/2019 15:30:16 Coronary arteriosclerosis 44626662 I25.10 S/p IL and CABG. Had ECHO done in 03/31/19 showed LV systolic function is moderately to severely reduced , EF 30-35% , mild tricuspid regurgitat ion. Had ECHO on 01/07/18: LV chamber is moderately dilated. LV wall thickness is moderately increased. There are multiple segmental wall motion abnormalit ies. The estimated left ventricle ejection fraction is 35-40%(abn ormal).The re is increased left atrial pressure and Grade II diastolic dysfunctio n. 05/12/17 ECHO: LV chamber is moderately dilated. There is mild concentric LV hypertroph y. The estimated left ventricle ejection fraction is 35-40%(abn ormal). LV relaxation is impaired. Left Atrium chamber is mild dilated. Sinus bradycardi a. Continue ASA, Brilinta (reduced dose 04/01/2018 to 60 mg bid), metoprolol , lisinopril . Began Aldactone 25 mg qd 06/12/17 04/24/2019: BUN 19 CR 0.85 NA 138 K 4.4 MG 1.9 TSH 1.75 Needs to keep LDL less than 70, and HDL more than 40. Completed cardiac rehab at [place] 07/2017. Hyperlipidemia 71346684 E78.5 Needs to keep LDL less than 70, and HDL more than 40. At time of recent hospitaliz ation, LDL 100. On 05/30/17 : TC 139 ,TG 65 ,HDL 53,LDL 73 , Increased rosuvastat in to 20 mg qd 06/12/17. 04/24/2019 TC 123 HDL 53 TR 49 LDL 56 Benign ess ential hypertension 6253148 I10 Patient's blood pressure is {{well-con trolled* s omewhat well-contr olled not well-contr olled}} on present medical therapy. Patient is {{tolerati ng, without difficulty ,* having side effects with}} the current medication s. I have {{not made* made the following} } changes to the current regimen. {{ Patient is advised to maintain a blood pressure diary.*}} Patient was advised to eat a low-sodium diet (2 grams sodium or less daily). BP monitor. Atrial fibrillation 4943 6004 I48.91 No recurrence . In regular rhythm on exam and EKG. Had afib with IL/hospita lization. EKG recently with sinus bradycardi a. Continue ASA. Stopped amiodarone 01/2018 as per patient preference . Continue metoprolol . Had Holter Monitor 08/03/18: Normal sinus rhythm. Sinus bradycardi a. Few episodes of ventricula r bigeminy and trigeminy. Frequent PAC's and PVC's but not correlated with symptoms. 04/24/19: Mag 1.9, TSH 1.75 History of smoking 40946 88837 [id number] Z87.891 Pt has quit since CABG. Morbid obesity 130490152 E66.01 20 lb. weight loss recommende d over the next 2 months. 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 LVEF 40%. STILL NO IMPROVEMEN T OF LVSF on medical therapy. Will need to set up with LifeVest pending ICD. 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 Will need ICD implantati on for the protection of sudden cardiac but patient is NOT in agreement at this time. Will continue with maximal medial therapy. Systolic h eart failure [id number] I50.20 Discussed patient s diagnosis of {{heart failure with reduced ejection fraction* heart failure with preserved ejection fraction}} {{ and underlying ischemic cardiomyop athy* and underlying non-ischem ic cardiomyop athy}}, including pathophysi ology and prognosis. Discussed importance of controllin g blood pressure, exercising regularly, and minimizing alcohol, caffeine, and decongesta nts. Patient {{ is on a beta-block er* is on carvedilol }}{{ is not on a beta-block er due to hypotensio n is not on a beta-block er due to bradycardi a is not on a beta-block er due to COPD}}. Patient {{ is on an JOYCE-I* is on an ARB}}{{ is not on an JOYCE-I/ARB due to hypotensio n is not on an JOYCE-I/ARB due to renal insufficie ncy}}. {{ Patient is on a diuretic.* Patient is on digoxin. P atient is on a diuretic and digoxin.}} Advised patient to seek medical attention for chest pain, shortness of breath, weight gain, swelling, change in exercise capacity, fatigue, palpitatio ns, dizziness, syncope, or any other new or concerning symptoms. Patient was advised to eat a low-sodium diet (2 grams sodium or less daily), to take medication as prescribed , and to record a daily weight, reporting any 4 pound change in weight from baseline. Up 16 lbs in 3 months with 1-2+ BLE edema. No SOB or orthopnea. Began Lasix 20 mg QD [address] [facility] [place] [facility] [address] [place] [address] 05/19/2019 15:49:09 05/19/2019 17:11:06 Ischemic congestive cardiomyopathy 263456777 I25.5 s/p IL (03/24/17) and 4V CABG (03/26/17) Had ECHO done in 03/31/19 showed LV systolic function is moderately to severely reduced , EF 30-35% , mild tricuspid regurgitat ion (reduced from previous at 35-40%). Had exercise nuclear stress on 03/31/19 that was negative for ischemia but with a fixed defect consistent with an old infarction in inferior area. LVEF 40%. STILL NO IMPROVEMEN T OF LVSF on medical therapy. Will need to set up with LifeVest pending ICD. 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 May need ICD implantati on for the protection of sudden cardiac but patient is NOT in agreement at this time despite discussion of risks and benefits. Will continue with maximal medial therapy. Plan on limited echo for LVEF 07/01/19. Coronary arteriosclerosis 89899877 I25.10 S/p IL and CABG. Had ECHO done in 03/31/19 showed LV systolic function is moderately to severely reduced , EF 30-35% , mild tricuspid regurgitat ion. Had ECHO on 01/07/18: LV chamber is moderately dilated. LV wall thickness is moderately increased. There are multiple segmental wall motion abnormalit ies. The estimated left ventricle ejection fraction is 35-40%(abn ormal).The re is increased left atrial pressure and Grade II diastolic dysfunctio n. 05/12/17 ECHO: LV chamber is moderately dilated. There is mild concentric LV hypertroph y. The estimated left ventricle ejection fraction is 35-40%(abn ormal). LV relaxation is impaired. Left Atrium chamber is mild dilated. Sinus bradycardi a. Continue ASA, Brilinta (reduced dose 04/01/2018 to 60 mg bid), metoprolol , lisinopril . Began Aldactone 25 mg qd 06/12/17 04/24/2019: BUN 19 CR 0.85 NA 138 K 4.4 MG 1.9 TSH 1.75 Needs to keep LDL less than 70, and HDL more than 40. Completed cardiac rehab at [place] 07/2017. Systolic h eart failure [id number] I50.20 Discussed patient s diagnosis of {{heart failure with reduced ejection fraction* heart failure with preserved ejection fraction}} {{ and underlying ischemic cardiomyop athy* and underlying non-ischem ic cardiomyop athy}}, including pathophysi ology and prognosis. Discussed importance of controllin g blood pressure, exercising regularly, and minimizing alcohol, caffeine, and decongesta nts. Patient {{ is on a beta-block er* is on carvedilol }}{{ is not on a beta-block er due to hypotensio n is not on a beta-block er due to bradycardi a is not on a beta-block er due to COPD}}. Patient {{ is on an JOYCE-I* is on an ARB}}{{ is not on an JOYCE-I/ARB due to hypotensio n is not on an JOYCE-I/ARB due to renal insufficie ncy}}. {{ Patient is on a diuretic.* Patient is on digoxin. P atient is on a diuretic and digoxin.}} Advised patient to seek medical attention for chest pain, shortness of breath, weight gain, swelling, change in exercise capacity, fatigue, palpitatio ns, dizziness, syncope, or any other new or concerning symptoms. Patient was advised to eat a low-sodium diet (2 grams sodium or less daily), to take medication as prescribed , and to record a daily weight, reporting any 4 pound change in weight from baseline. Up 16 lbs in 3 months with 1-2+ BLE edema. No SOB or orthopnea. Began Lasix 20 mg QD 05/05/19 but patient discontinu ed due to leg muscle cramping after 3 days. Stopped Lasix. Begin compressio n stockings medium strength below knee. Myocardial infarction 22 815756 I21.9 In 2017. Continue ASA, Brilinta. Continue maximal medical treatment and risk factor modificati on. Hyperlipidemia 28292290 E78.5 Needs to keep LDL less than 70, and HDL more than 40. At time of recent hospitaliz ation, LDL 100. On 05/30/17 : TC 139 ,TG 65 ,HDL 53,LDL 73 , Increased rosuvastat in to 20 mg qd 06/12/17. 04/24/2019 TC 123 HDL 53 TR 49 LDL 56 Benign ess ential hypertension 6612831 I10 Patient's blood pressure is {{well-con trolled* s omewhat well-contr olled not well-contr olled}} on present medical therapy. Patient is {{tolerati ng, without difficulty ,* having side effects with}} the current medication s. I have {{not made* made the following} } changes to the current regimen. {{ Patient is advised to maintain a blood pressure diary.*}} Patient was advised to eat a low-sodium diet (2 grams sodium or less daily). BP monitor. Atrial fibrillation 4943 6004 I48.91 No recurrence . In regular rhythm on exam and EKG. Had afib with IL/hospita lization. EKG recently with sinus bradycardi a. Continue ASA. Stopped amiodarone 01/2018 as per patient preference . Continue metoprolol . Had Holter Monitor 08/03/18: Normal sinus rhythm. Sinus bradycardi a. Few episodes of ventricula r bigeminy and trigeminy. Frequent PAC's and PVC's but not correlated with symptoms. 04/24/19: Mag 1.9, TSH 1.75. History of smoking 89124 41586 [id number] Z87.891 Pt has quit since CABG. Morbid obesity 026220456 E66.01 20 lb. weight loss recommende d over the next 2 months. [address] [facility] [place] [address] 07/28/2019 16:02:32 07/28/2019 18:00:55 Ischemic congestive cardiomyopathy 433958870 I25.5 s/p [place] (03/24/17) and 4V CABG (03/26/17) Had 06/28/19 ECHO: LV chamber is moderately dilated. LV wall thickness is mildly increased. There is mild global hypokinesi s. The estimated left ventricle ejection fraction is 35-40%(abn ormal). Sinus bradycardi a. Had ECHO done in 03/31/19 showed LV systolic function is moderately to severely reduced , EF 30-35% , mild tricuspid regurgitat ion (reduced from previous at 35-40%). Had exercise nuclear stress on 03/31/19 that was negative for ischemia but with a fixed defect consistent with an old infarction in inferior area. LVEF 40%. STILL NO IMPROVEMEN T OF LVSF on medical therapy. No LifeVest given LVEF 35-40% on echo 06/28/19. 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 Will continue with maximal medial therapy. Coronary arteriosclerosis 81148244 I25.10 S/p IL and CABG. Had 06/28/19 ECHO: LV chamber is moderately dilated. LV wall thickness is mildly increased. There is mild global hypokinesi s. The estimated left ventricle ejection fraction is 35-40%(abn ormal). Sinus bradycardi a. Had ECHO done in 03/31/19 showed LV systolic function is moderately to severely reduced , EF 30-35% , mild tricuspid regurgitat ion. Had ECHO on 01/07/18: LV chamber is moderately dilated. LV wall thickness is moderately increased. There are multiple segmental wall motion abnormalit ies. The estimated left ventricle ejection fraction is 35-40%(abn ormal).The re is increased left atrial pressure and Grade II diastolic dysfunctio n. 05/12/17 ECHO: LV chamber is moderately dilated. There is mild concentric LV hypertroph y. The estimated left ventricle ejection fraction is 35-40%(abn ormal). LV relaxation is impaired. Left Atrium chamber is mild dilated. Sinus bradycardi a. Continue ASA, Brilinta (reduced dose 04/01/2018 to 60 mg bid), metoprolol , lisinopril . Began Aldactone 25 mg qd 06/12/17 04/24/2019: BUN 19 CR 0.85 NA 138 K 4.4 MG 1.9 TSH 1.75 Needs to keep LDL less than 70, and HDL more than 40. Completed cardiac rehab at [place] 07/2017. Systolic h eart failure [id number] I50.20 Discussed patient s diagnosis of {{heart failure with reduced ejection fraction* heart failure with preserved ejection fraction}} {{ and underlying ischemic cardiomyop athy* and underlying non-ischem ic cardiomyop athy}}, including pathophysi ology and prognosis. Discussed importance of controllin g blood pressure, exercising regularly, and minimizing alcohol, caffeine, and decongesta nts. Patient {{ is on a beta-block er* is on carvedilol }}{{ is not on a beta-block er due to hypotensio n is not on a beta-block er due to bradycardi a is not on a beta-block er due to COPD}}. Patient {{ is on an JOYCE-I* is on an ARB}}{{ is not on an JOYCE-I/ARB due to hypotensio n is not on an JOYCE-I/ARB due to renal insufficie ncy}}. {{ Patient is on a diuretic.* Patient is on digoxin. P atient is on a diuretic and digoxin.}} Advised patient to seek medical attention for chest pain, shortness of breath, weight gain, swelling, change in exercise capacity, fatigue, palpitatio ns, dizziness, syncope, or any other new or concerning symptoms. Patient was advised to eat a low-sodium diet (2 grams sodium or less daily), to take medication as prescribed , and to record a daily weight, reporting any 4 pound change in weight from baseline. Previously , up 16 lbs in 3 months with 1-2+ BLE edema. No SOB or orthopnea. Began Lasix 20 mg QD 05/05/19 but patient discontinu ed due to leg muscle cramping after 3 days. Stopped Lasix. Begin compressio n stockings medium strength below knee. Elevate legs. Myocardial infarction 22 [id number] I21.9 In 2017. Continue ASA, Brilinta. Continue maximal medical treatment and risk factor modificati on. Hyperlipidemia [id number] E78.5 Needs to keep LDL less than 70, and HDL more than 40. At time of recent hospitaliz ation, LDL 100. On 05/30/17 : TC 139 ,TG 65 ,HDL 53,LDL 73 , Increased rosuvastat in to 20 mg qd 06/12/17. 04/24/2019 TC 123 HDL 53 TR 49 LDL 56 Benign ess ential hypertension [id number] I10 Patient's blood pressure is {{well-con trolled so mewhat well-contr olled* not well-contr olled}} on present medical therapy. Patient is {{tolerati ng, without difficulty ,* having side effects with}} the current medication s. I have {{not made* made the following} } changes to the current regimen. {{ Patient is advised to maintain a blood pressure diary.*}} Patient was advised to eat a low-sodium diet (2 grams sodium or less daily). BP monitor. Atrial fibrillation [id number] I48.91 No recurrence . In regular rhythm on exam and EKG. Had afib with IL/hospita lization. EKG recently with sinus bradycardi a. Continue ASA. Stopped amiodarone 01/2018 as per patient preference . Continue metoprolol . Had Holter Monitor 08/03/18: Normal sinus rhythm. Sinus bradycardi a. Few episodes of ventricula r bigeminy and trigeminy. Frequent PAC's and PVC's but not correlated with symptoms. 04/24/19: Mag 1.9, TSH 1.75. History of smoking [id number] Z87.891 Pt has quit since CABG. Morbid obesity [id number] E66.01 20 lb. weight loss recommende d over the next 2 months. [address] [facility] OFFICE [address] [place] [address] 01/05/2020 15:48:46 01/05/2020 17:58:06 Ischemic congestive cardiomyopathy [id number] I25.5 s/p IL (03/24/17) and 4V CABG (03/26/17). Had 06/28/19 ECHO: LV chamber is moderately dilated. LV wall thickness is mildly increased. There is mild global hypokinesi s. The estimated left ventricle ejection fraction is 35-40%(abn ormal). Sinus bradycardi a. Had ECHO done in 03/31/19 showed LV systolic function is moderately to severely reduced , EF 30-35% , mild tricuspid regurgitat ion (reduced from previous at 35-40%). Had exercise nuclear stress on 03/31/19 that was negative for ischemia but with a fixed defect consistent with an old infarction in inferior area. LVEF 40%. STILL NO IMPROVEMEN T OF LVSF on medical therapy. No LifeVest given LVEF 35-40% on echo 06/28/19. He works as a heavy duty truck mechanic . Will continue with maximal medial therapy. Coronary arteriosclerosis [id number] I25.10 S/p IL and CABG. Had 06/28/19 ECHO: LV chamber is moderately dilated. LV wall thickness is mildly increased. There is mild global hypokinesi s. The estimated left ventricle ejection fraction is 35-40%(abn ormal). Sinus bradycardi a. Had ECHO done in 03/31/19 showed LV systolic function is moderately to severely reduced , EF 30-35% , mild tricuspid regurgitat ion. Had ECHO on 01/07/18: LV chamber is moderately dilated. LV wall thickness is moderately increased. There are multiple segmental wall motion abnormalit ies. The estimated left ventricle ejection fraction is 35-40%(abn ormal).The re is increased left atrial pressure and Grade II diastolic dysfunctio n. 05/12/17 ECHO: LV chamber is moderately dilated. There is mild concentric LV hypertroph y. The estimated left ventricle ejection fraction is 35-40%(abn ormal). LV relaxation is impaired. Left Atrium chamber is mild dilated. Sinus bradycardi a. Continue ASA, Brilinta (reduced dose 04/01/2018 to 60 mg bid), metoprolol , lisinopril . Began Aldactone 25 mg qd 06/12/17 04/24/2019: BUN 19 CR 0.85 NA 138 K 4.4 MG 1.9 TSH 1.75 Needs to keep LDL less than 70, and HDL more than 40. Completed cardiac rehab at [place] 07/2017. Systolic h eart failure [id number] I50.20 Discussed patient s diagnosis of {{heart failure with reduced ejection fraction* heart failure with preserved ejection fraction}} {{ and underlying ischemic cardiomyop athy* and underlying non-ischem ic cardiomyop athy}}, including pathophysi ology and prognosis. Discussed importance of controllin g blood pressure, exercising regularly, and minimizing alcohol, caffeine, and decongesta nts. Patient {{ is on a beta-block er* is on carvedilol }}{{ is not on a beta-block er due to hypotensio n is not on a beta-block er due to bradycardi a is not on a beta-block er due to COPD}}. Patient {{ is on an JOYCE-I* is on an ARB}}{{ is not on an JOYCE-I/ARB due to hypotensio n is not on an JOYCE-I/ARB due to renal insufficie ncy}}. {{ Patient is on a diuretic.* Patient is on digoxin. P atient is on a diuretic and digoxin.}} Advised patient to seek medical attention for chest pain, shortness of breath, weight gain, swelling, change in exercise capacity, fatigue, palpitatio ns, dizziness, syncope, or any other new or concerning symptoms. Patient was advised to eat a low-sodium diet (2 grams sodium or less daily), to take medication as prescribed , and to record a daily weight, reporting any 4 pound change in weight from baseline. Previously , up 16 lbs in 3 months with 1-2+ BLE edema. No SOB or orthopnea. Began Lasix 20 mg QD 05/05/19 but patient discontinu ed due to leg muscle cramping after 3 days. Stopped Lasix. Begin compressio n stockings medium strength below knee. Elevate legs. Myocardial infarction 22 [id number] I21.9 In 2017. Continue ASA, Brilinta. Continue maximal medical treatment and risk factor modificati on. Hyperlipidemia 16758293 E78.5 Needs to keep LDL less than 70, and HDL more than 40. At time of recent hospitaliz ation, LDL 100. On 05/30/17 : TC 139 ,TG 65 ,HDL 53,LDL 73 , Increased rosuvastat in to 20 mg qd 06/12/17. 04/24/2019 TC 123 HDL 53 TR 49 LDL 56 11/05/19 Lipid- TC:161, TR:66, HDL:65, LDL:81. Increased to rosuvastat in to 40 mg qd 01/05/20. Obtain FLP 1 mo. Benign ess ential hypertension 3923338 I10 Patient's blood pressure is {{well-con trolled so mewhat well-contr olled* not well-contr olled}} on present medical therapy. Patient is {{tolerati ng, without difficulty ,* having side effects with}} the current medication s. I have {{not made* made the following} } changes to the current regimen. {{ Patient is advised to maintain a blood pressure diary.*}} Patient was advised to eat a low-sodium diet (2 grams sodium or less daily). BP monitor. Atrial fibrillation [id number] [id number] I48.91 No recurrence . In regular rhythm on exam and EKG. Had afib with IL/hospita lization. EKG recently with sinus bradycardi a. Continue ASA. Stopped amiodarone 01/2018 as per patient preference . Continue metoprolol . Had Holter Monitor 08/03/18: Normal sinus rhythm. Sinus bradycardi a. Few episodes of ventricula r bigeminy and trigeminy. Frequent PAC's and PVC's but not correlated with symptoms. 04/24/19: Mag 1.9, TSH 1.75. History of smoking [id number] Z87.891 Pt has quit since CABG. Morbid obesity [id number] E66.01 20 lb. weight loss recommende d over the next 2 months. Health Concerns Section Related Observation LastModified by Organization Detai ls LastModified Time None Recorded Concern Status LastModified by Organization Details LastModified Time None Recorded Advance Directives Directive None Recorded Payers Encounter Date Sequence Insurance Name Policy Number Policy Hunt Covered Member ID Hunt Member ID Guarantor Name 02/01/2019 1 [employer] [id number] David R Gehner [id number] 24 David Gehner 05/05/2019 1 [employer] [id number] David R Gehner [id number] 24 David Gehner 05/19/2019 1 [place] [id number] David R Gehner [id number] 24 David Gehner 07/28/2019 1 [place] [id number] David R Gehner [id number] 24 David Gehner 01/05/2020 1 [employer] [id number] David R Gehner [id number] David Gehner Notes Date Note Type Note Provider Name and Address Organization Details Recorded Time 02/01/2019 text/html 02/01/19 CC : Follow-up CAD s/p CABG 43 year-old white man with CAD s/p [place] (03/24/17) and CABG 4 v. (03/26/17, [facility] Dr. Doran, LINDER to LAD, sequential SVG to distal RCA and PDA, SVG to diagonal), hypertension, former tobacco use (60 pack-year), obesity, paroxysmal atrial fibrillation, is here for follow up for CAD. Patient presents today for follow-up. He was last in our office 6 months ago. Since then has does not have any complaints and is feeling well overall. No Chest pain. Pt reports continued mild stable SOB with exertion. No shortness of breath at rest. No Orthopnea. No PNDs. Occasional mild left pedal edema. No dizziness. No syncope or near syncope. Tolerating medications without difficulty. Pt reports increased activity with no exercise. Pt completed cardiac rehab 33 visits ending 07/24/17. 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 Patient quit smoking 03/2017. Had chest pain in hospital 03/2017 found to have STEMI and atrial fibrillation with rapid ventricular response. EKG showed Q wave in anterior leads and [address] elevation in lead 3. Had ECHO done in 03/24/17 showed moderate LV systolic dysfunction. Had CABG x3. Had ECHO on 01/07/18: LV chamber is moderately dilated. LV wall thickness is moderately increased. There are multiple segmental wall motion abnormalities. The estimated left ventricle ejection fraction is 35-40%(abnormal). There is increased left atrial pressure and Grade II diastolic dysfunction. Left atrium chamber is mildly to moderately dilated. The aortic valve is mildly calcified. There is mild mitral regurgitation. There is mild tricuspid regurgitation.The ascending aorta is mildly dilated. Had 05/12/17 ECHO: LV chamber is moderately dilated. There is mild concentric LV hypertrophy. The estimated left ventricle ejection fraction is 35-40%(abnormal). LV relaxation is impaired. Left Atrium chamber is mild dilated. Sinus bradycardia. Had CATH done in 03/31/17 revealed 3-vessel coronary artery disease. Anomalous circ, left femoral RCA cusp. Severe left ventricular diastolic dysfunction. Status post recent myocardial infarction and transferred for CABG surgery. Had Holter done in 08/03/18 showed Normal sinus rhythm. Sinus bradycardia. Few episodes of ventricular bigeminy and trigeminy. Frequent PAC's and PVC's but not correlated with symptoms. Results from this visit, or from the past: 03/27/2018: TC 103, HDL 43, TR 64, LDL 46 01/07/18: GLU:98, BUN:23, CR: 1.03, NA: 139, K:5.0, CL:105, CO2: 27, AST:23, ALT:33, M.0, TSH: 2.51 07/08/17: MG 2.1. 07/08/17: SOD 139, K 5.1, CL 105, CO2 28, GL 97, BUN 16, CR 1.06. 05/30/17 : TC 139 ,TG 65 ,HDL 53,LDL 73 , 03/31/17: WBC: 9.6 HGT: 11.4 HCT: 33.8 PLAT: 185 03/31/17: NA: 141 K: 4.0 CH: 100 CO2: 28 B: 24 CR: 0.8 EKG 02/01/19 :Sinus bradycardia ,Probably old inferior myocardial infarction , Poor R progression in chest leads. EKG 08/03/18-sinus rhythm (slow) normal QRS inferior infarct 35 1/3 in aVF probable septal infarct. R<0.15 mV in V2 with Anh V3. slight intraventricular conduction delay ST-T mid and left precordial ST-T changes consistent with infarct. Neg T in V4 V5 V6 with small negative T in V3 inferior ST-T changes consistant with infarct negative T in aVF with negative T in II III conclusion abnormal ECG. EKG 01/28/18: NSR. Inferior IL, age undetermined. Poor R progression in chest leads EKG 10/29/17 : low voltage chest leads Porbably old anterior myocardial infarction inferior nyocardial infarction age undetermined EK06/12/2017 Sinus bradycardia. Nonspecific QRS widening. (Possibly recent) inferior and (age undetermined). Inferior - lateral infarct. T abnormality- Possible inferior and lateral ischemia. ABNORMAL. 04/29/17 EKG: Inferior myocardial infarction, age undetermined. Poor R progression in chest leads. Inverted T waves, anterior leads. 03/29/17 EKG: Sinus rhythm occasional premature ventricular complexes. Left ventricular hypertrophy with QRS widening and repolarization abnormality. Inferior infarct, age undetermined. Anterolateral infarct, age undetermined. Abnormal ECG. No previous ECGs available. ECHO 01/07/18: LV chamber is moderately dilated. LV wall thickness is moderately increased. There are multiple segmental wall motion abnormalities. The estimated left ventricle ejection fraction is 35-40%(abnormal).There is increased left atrial pressure and Grade II diastolic dysfunction. Left atrium chamber is mildly to moderately dilated. The aortic valve is mildly calcified. There is mild mitral regurgitation. There is mild tricuspid regurgitation.The ascending aorta is mildly dilated. 05/12/17 ECHO: LV chamber is moderately dilated. There is mild concentric LV hypertrophy. The estimated left ventricle ejection fraction is 35-40%(abnormal). LV relaxation is impaired. Left Atrium chamber is mild dilated. Sinus bradycardia. 03/24/2017 ECHO: Mild enlargement of left ventricle cavity. Moderate global left ventricular systolic dysfunction. These segments of the LV are hypokinetic: inferior segment. Normal appearance of the mitral valve. Mild mitral valve regurgitation CHEST: 03/25/17 Tip of balloon pump is in satisfactory position. Mild cardiomegaly. LHC: 03/31/17 : 3-vessel coronary artery disease. Anomalous circ, left femoral RCA cusp. Severe left ventricular diastolic dysfunction. Status post recent myocardial infarction. [place] [facility] 02/01/2019 11:49:12 05/05/2019 text/html 05/05/19 CC: Dyspena 43 year-old white man with a PMH of CAD s/p IL (03/24/17) and CABG 4 v. (03/26/17, [facility] Dr. Doran, LINDER to LAD, sequential SVG to distal RCA and PDA, SVG to diagonal), ischemic cardiomyopathy, hypertension, former tobacco use (60 pack-year), paroxysmal atrial fibrillation, obesity, presents today for follow-up with a chief complaint of dyspnea. He was here last 3 months ago. Up 16 lbs which he does not believe is accurate. Since then he has been doing fairly well with no new complaints. 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 He completed cardiac rehab 33 visits ending 07/24/17. Denies chest pain. Pt reports continued mild/stable SOB with exertion. No shortness of breath at rest. No orthopnea. No PNDs. Has 1-2+ BLE edema. No dizziness. No syncope or near syncope. Tolerating medications without difficulty. Pt reports increased activity with no exercise. He quit smoking in 03/2017 after his IL. Had chest pain in hospital 03/2017 found to have STEMI and atrial fibrillation with rapid ventricular response. EKG showed Q wave in anterior leads and [address] elevation in lead 3. EF was SEVERELY elevated POST IL at 35% with apical and intra-apical hypokinesis. Had ECHO done in 03/31/19 showed LV systolic function is moderately to severely reduced , EF 30-35% , mild tricuspid regurgitation. (Reduced from previous of 35-40%) Had a TMNST on 03/31/19 that was negative for ischemia but with a fixed defect consistent with an old infarction in inferior area. LVEF 40%. Had ECHO on 01/07/18: LV chamber is moderately dilated. LV wall thickness is moderately increased. There are multiple segmental wall motion abnormalities. The estimated left ventricle ejection fraction is 35-40%(abnormal). There is increased left atrial pressure and Grade II diastolic dysfunction. Left atrium chamber is mildly to moderately dilated. The aortic valve is mildly calcified. There is mild mitral regurgitation. There is mild tricuspid regurgitation.The ascending aorta is mildly dilated. Had 05/12/17 ECHO: LV chamber is moderately dilated. There is mild concentric LV hypertrophy. The estimated left ventricle ejection fraction is 35-40%(abnormal). LV relaxation is impaired. Left Atrium chamber is mild dilated. Sinus bradycardia. Had CATH done in 03/31/17 revealed 3-vessel coronary artery disease. Anomalous circ, left femoral RCA cusp. Severe left ventricular diastolic dysfunction. Status post recent myocardial infarction and transferred for CABG surgery. Had Holter done in 08/03/18 showed Normal sinus rhythm. Sinus bradycardia. Few episodes of ventricular bigeminy and trigeminy. Frequent PAC's and PVC's but not correlated with symptoms. Results from this visit, or from the past: 04/24/2019 GL 113 BUN 19 CR 0.85 NA 138 K 4.4 CH 104 CO2 27 CA 9.4 MG 1.9 TSH 1.75 04/24/2019 CH 123 HDL 53 TR 49 LDL 56 03/27/2018: TC 103, HDL 43, TR 64, LDL 46 01/07/18: GLU:98, BUN:23, CR: 1.03, NA: 139, K:5.0, CL:105, CO2: 27, AST:23, ALT:33, M.0, TSH: 2.51 07/08/17: MG 2.1. 07/08/17: SOD 139, K 5.1, CL 105, CO2 28, GL 97, BUN 16, CR 1.06. 05/30/17 : TC 139 ,TG 65 ,HDL 53,LDL 73 , 03/31/17: WBC: 9.6 HGT: 11.4 HCT: 33.8 PLAT: 185 03/31/17: NA: 141 K: 4.0 CH: 100 CO2: 28 B: 24 CR: 0.8 EKG 02/01/19 :Sinus bradycardia ,Probably old inferior myocardial infarction , Poor R progression in chest leads. EKG 08/03/18-sinus rhythm (slow) normal QRS inferior infarct 35 1/3 in aVF probable septal infarct. R<0.15 mV in V2 with Anh V3. slight intraventricular conduction delay ST-T mid and left precordial ST-T changes consistent with infarct. Neg T in V4 V5 V6 with small negative T in V3 inferior ST-T changes consistant with infarct negative T in aVF with negative T in II III conclusion abnormal ECG. EKG 01/28/18: NSR. Inferior IL, age undetermined. Poor R progression in chest leads EKG 10/29/17 : low voltage chest leads Porbably old anterior myocardial infarction inferior nyocardial infarction age undetermined EK06/12/2017 Sinus bradycardia. Nonspecific QRS widening. (Possibly recent) inferior and (age undetermined). Inferior - lateral infarct. T abnormality- Possible inferior and lateral ischemia. ABNORMAL. 04/29/17 EKG: Inferior myocardial infarction, age undetermined. Poor R progression in chest leads. Inverted T waves, anterior leads. 03/29/17 EKG: Sinus rhythm occasional premature ventricular complexes. Left ventricular hypertrophy with QRS widening and repolarization abnormality. Inferior infarct, age undetermined. Anterolateral infarct, age undetermined. Abnormal ECG. No previous ECGs available. ECHO 01/07/18: LV chamber is moderately dilated. LV wall thickness is moderately increased. There are multiple segmental wall motion abnormalities. The estimated left ventricle ejection fraction is 35-40%(abnormal).There is increased left atrial pressure and Grade II diastolic dysfunction. Left atrium chamber is mildly to moderately dilated. The aortic valve is mildly calcified. There is mild mitral regurgitation. There is mild tricuspid regurgitation.The ascending aorta is mildly dilated. 05/12/17 ECHO: LV chamber is moderately dilated. There is mild concentric LV hypertrophy. The estimated left ventricle ejection fraction is 35-40%(abnormal). LV relaxation is impaired. Left Atrium chamber is mild dilated. Sinus bradycardia. 03/24/2017 ECHO: Mild enlargement of left ventricle cavity. Moderate global left ventricular systolic dysfunction. These segments of the LV are hypokinetic: inferior segment. Normal appearance of the mitral valve. Mild mitral valve regurgitation CHEST: 03/25/17 Tip of balloon pump is in satisfactory position. Mild cardiomegaly. [facility]: 03/31/17 : 3-vessel coronary artery disease. Anomalous circ, left femoral RCA cusp. Severe left ventricular diastolic dysfunction. Status post recent myocardial infarction. [facility] 05/31/2019 15:30:15 05/19/2019 text/html 05/19/19 CC: Dyspnea 43 year-old white man with a PMH of CAD s/p [place] (03/24/17) and CABG 4 v. (03/26/17, [facility] Dr. Doran, LINDER to LAD, sequential SVG to distal RCA and PDA, SVG to diagonal), ischemic cardiomyopathy, hypertension, former tobacco use (60 pack-year), paroxysmal atrial fibrillation, obesity, presents today for follow-up with a chief complaint of dyspnea. He was here last 3 months ago. Down 2 lbs. Since then he has been doing fairly well with no new complaints. 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 He completed cardiac rehab 33 visits ending 07/24/17. Denies chest pain. Pt reports continued mild/stable SOB with exertion. No shortness of breath at rest. No orthopnea. No PNDs. Has stable 1-2+ BLE edema. No dizziness. No syncope or near syncope. Tolerating medications without difficulty. Pt reports increased activity with no exercise. He quit smoking in 03/2017 after his IL. Had chest pain in hospital 03/2017 found to have STEMI and atrial fibrillation with rapid ventricular response. EKG showed Q wave in anterior leads and [address] elevation in lead 3. EF was SEVERELY elevated POST IL at 35% with apical and intra-apical hypokinesis. Had ECHO done in 03/31/19 showed LV systolic function is moderately to severely reduced , EF 30-35% , mild tricuspid regurgitation. (Reduced from previous of 35-40%). Had an exercise nuclear stress test on 03/31/19 that was negative for ischemia but with a fixed defect consistent with an old infarction in inferior area. LVEF 40%. Had ECHO on 01/07/18: LV chamber is moderately dilated. LV wall thickness is moderately increased. There are multiple segmental wall motion abnormalities. The estimated left ventricle ejection fraction is 35-40%(abnormal). There is increased left atrial pressure and Grade II diastolic dysfunction. Left atrium chamber is mildly to moderately dilated. The aortic valve is mildly calcified. There is mild mitral regurgitation. There is mild tricuspid regurgitation.The ascending aorta is mildly dilated. Had 05/12/17 ECHO: LV chamber is moderately dilated. There is mild concentric LV hypertrophy. The estimated left ventricle ejection fraction is 35-40%(abnormal). LV relaxation is impaired. Left Atrium chamber is mild dilated. Sinus bradycardia. Had CATH done in 03/31/17 revealed 3-vessel coronary artery disease. Anomalous circ, left femoral RCA cusp. Severe left ventricular diastolic dysfunction. Status post recent myocardial infarction and transferred for CABG surgery. Had Holter done in 08/03/18 showed Normal sinus rhythm. Sinus bradycardia. Few episodes of ventricular bigeminy and trigeminy. Frequent PAC's and PVC's but not correlated with symptoms. Results from this visit, or from the past: 04/24/2019 GL 113 BUN 19 CR 0.85 NA 138 K 4.4 CH 104 CO2 27 CA 9.4 MG 1.9 TSH 1.75 04/24/2019 CH 123 HDL 53 TR 49 LDL 56 03/27/2018: TC 103, HDL 43, TR 64, LDL 46 01/07/18: GLU:98, BUN:23, CR: 1.03, NA: 139, K:5.0, CL:105, CO2: 27, AST:23, ALT:33, M.0, TSH: 2.51 07/08/17: MG 2.1. 07/08/17: SOD 139, K 5.1, CL 105, CO2 28, GL 97, BUN 16, CR 1.06. 05/30/17 : TC 139 ,TG 65 ,HDL 53,LDL 73 , 03/31/17: WBC: 9.6 HGT: 11.4 HCT: 33.8 PLAT: 185 03/31/17: NA: 141 K: 4.0 CH: 100 CO2: 28 B: 24 CR: 0.8 EK05/19/19 abnormal ekg EK05/05/19 Normal sinus rhythm. Inferior IL, age undertemined. Inverted T waves, anterior leads. 03/31/19 TDM -Negative stress test for ischemia. Fixed defect consistent with old infarction in inferior area. No previous study to compare. Abnormal stress test. Artifact noted. Exercise tolerance: Average. Submaximal exercise stress. The sensitivity of the test is limited by the inability to achieve target heart rate. LVEF 40%. 03/31/19 ECHO: Study quality: Technically difficult. LV chamber is moderately dilated. LV wall thickness is mildly increased. LV systolic function is moderately to severely reduced. The estimated left ventricle ejection fraction is 30-35%(abnormal). RV size is moderately dilated. Left atrium chamber is moderately dilated. There is mild thickening of mitral valve anterior leaflet. There is trace mitral regurgitation. There is mild tricuspid regurgitation. EKG 02/01/19 :Sinus bradycardia ,Probably old inferior myocardial infarction , Poor R progression in chest leads. EKG 08/03/18-sinus rhythm (slow) normal QRS inferior infarct 35 1/3 in aVF probable septal infarct. R<0.15 mV in V2 with Anh V3. slight intraventricular conduction delay ST-T mid and left precordial ST-T changes consistent with infarct. Neg T in V4 V5 V6 with small negative T in V3 inferior ST-T changes consistant with infarct negative T in aVF with negative T in II III conclusion abnormal ECG. Holter Monitor 08/03/18: Normal sinus rhythm. Sinus bradycardia. Few episodes of ventricular bigeminy and trigeminy. Frequent PAC's and PVC's but not correlated with symptoms. EKG 01/28/18: NSR. Inferior IL, age undetermined. Poor R progression in chest leads EKG 10/29/17 : low voltage chest leads Porbably old anterior myocardial infarction inferior nyocardial infarction age undetermined EK06/12/2017 Sinus bradycardia. Nonspecific QRS widening. (Possibly recent) inferior and (age undetermined). Inferior - lateral infarct. T abnormality- Possible inferior and lateral ischemia. ABNORMAL. 04/29/17 EKG: Inferior myocardial infarction, age undetermined. Poor R progression in chest leads. Inverted T waves, anterior leads. 03/29/17 EKG: Sinus rhythm occasional premature ventricular complexes. Left ventricular hypertrophy with QRS widening and repolarization abnormality. Inferior infarct, age undetermined. Anterolateral infarct, age undetermined. Abnormal ECG. No previous ECGs available. ECHO 01/07/18: LV chamber is moderately dilated. LV wall thickness is moderately increased. There are multiple segmental wall motion abnormalities. The estimated left ventricle ejection fraction is 35-40%(abnormal).There is increased left atrial pressure and Grade II diastolic dysfunction. Left atrium chamber is mildly to moderately dilated. The aortic valve is mildly calcified. There is mild mitral regurgitation. There is mild tricuspid regurgitation.The ascending aorta is mildly dilated. 05/12/17 ECHO: LV chamber is moderately dilated. There is mild concentric LV hypertrophy. The estimated left ventricle ejection fraction is 35-40%(abnormal). LV relaxation is impaired. Left Atrium chamber is mild dilated. Sinus bradycardia. 03/24/2017 ECHO: Mild enlargement of left ventricle cavity. Moderate global left ventricular systolic dysfunction. These segments of the LV are hypokinetic: inferior segment. Normal appearance of the mitral valve. Mild mitral valve regurgitation CHEST: 03/25/17 Tip of balloon pump is in satisfactory position. Mild cardiomegaly. [facility]: 03/31/17 : 3-vessel coronary artery disease. Anomalous circ, left femoral RCA cusp. Severe left ventricular diastolic dysfunction. Status post recent myocardial infarction. [facility] [place], [place] - [facility] 05/19/2019 17:11:04 07/28/2019 text/html 07/28/19 CC: Dyspnea 43 year-old white man with a PMH of CAD s/p [place] (03/24/17) and CABG 4 v. (03/26/17, [facility]. [facility]osp[facility] Dr. Doran, LINDER to LAD, sequential SVG to distal RCA and PDA, SVG to diagonal), ischemic cardiomyopathy, hypertension, former tobacco use (60 pack-year), paroxysmal atrial fibrillation, obesity, presents today for follow-up with a chief complaint of dyspnea. He was here last 2 months ago. Had 9 lb weight gain. Since then he has been doing fairly well with no new complaints. 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 He completed cardiac rehab 33 visits ending 07/24/17. Denies chest pain. Pt reports continued mild/stable SOB with exertion. No shortness of breath at rest. No orthopnea. No PNDs. Has intermittent stable 1-2+ BLE edema. No dizziness. No syncope or near syncope. Tolerating medications without difficulty. Pt reports increased activity with no exercise. He quit smoking in 03/2017 after his [place]. Reports home BP 130/68. Had chest pain in hospital 03/2017 found to have STEMI and atrial fibrillation with rapid ventricular response. EKG showed Q wave in anterior leads and [address] elevation in lead 3. EF was SEVERELY elevated POST IL at 35% with apical and intra-apical hypokinesis. Had 06/28/19 ECHO: LV chamber is moderately dilated. LV wall thickness is mildly increased. There is mild global hypokinesis. The estimated left ventricle ejection fraction is 35-40%(abnormal). Sinus bradycardia. Had ECHO done in 03/31/19 showed LV systolic function is moderately to severely reduced , EF 30-35% , mild tricuspid regurgitation. (Reduced from previous of 35-40%). Had an exercise nuclear stress test on 03/31/19 that was negative for ischemia but with a fixed defect consistent with an old infarction in inferior area. LVEF 40%. Had ECHO on 01/07/18: LV chamber is moderately dilated. LV wall thickness is moderately increased. There are multiple segmental wall motion abnormalities. The estimated left ventricle ejection fraction is 35-40%(abnormal). There is increased left atrial pressure and Grade II diastolic dysfunction. Left atrium chamber is mildly to moderately dilated. The aortic valve is mildly calcified. There is mild mitral regurgitation. There is mild tricuspid regurgitation.The ascending aorta is mildly dilated. Had 05/12/17 ECHO: LV chamber is moderately dilated. There is mild concentric LV hypertrophy. The estimated left ventricle ejection fraction is 35-40%(abnormal). LV relaxation is impaired. Left Atrium chamber is mild dilated. Sinus bradycardia. Had CATH done in 03/31/17 revealed 3-vessel coronary artery disease. Anomalous circ, left femoral RCA cusp. Severe left ventricular diastolic dysfunction. Status post recent myocardial infarction and transferred for CABG surgery. Had Holter done in 08/03/18 showed Normal sinus rhythm. Sinus bradycardia. Few episodes of ventricular bigeminy and trigeminy. Frequent PAC's and PVC's but not correlated with symptoms. Results from this visit, or from the past: 04/24/2019 GL 113 BUN 19 CR 0.85 NA 138 K 4.4 CH 104 CO2 27 CA 9.4 MG 1.9 TSH 1.75 04/24/2019 CH 123 HDL 53 TR 49 LDL 56 03/27/2018: TC 103, HDL 43, TR 64, LDL 46 01/07/18: GLU:98, BUN:23, CR: 1.03, NA: 139, K:5.0, CL:105, CO2: 27, AST:23, ALT:33, M.0, TSH: 2.51 07/08/17: MG 2.1. 07/08/17: SOD 139, K 5.1, CL 105, CO2 28, GL 97, BUN 16, CR 1.06. 05/30/17 : TC 139 ,TG 65 ,HDL 53,LDL 73 , 03/31/17: WBC: 9.6 HGT: 11.4 HCT: 33.8 PLAT: 185 03/31/17: NA: 141 K: 4.0 CH: 100 CO2: 28 B: 24 CR: 0.8 EK05/19/19 abnormal ekg EK05/05/19 Normal sinus rhythm. Inferior IL, age undertemined. Inverted T waves, anterior leads. 03/31/19 TDM -Negative stress test for ischemia. Fixed defect consistent with old infarction in inferior area. No previous study to compare. Abnormal stress test. Artifact noted. Exercise tolerance: Average. Submaximal exercise stress. The sensitivity of the test is limited by the inability to achieve target heart rate. LVEF 40%. Had 06/28/19 ECHO: LV chamber is moderately dilated. LV wall thickness is mildly increased. There is mild global hypokinesis. The estimated left ventricle ejection fraction is 35-40%(abnormal). Sinus bradycardia. 03/31/19 ECHO: Study quality: Technically difficult. LV chamber is moderately dilated. LV wall thickness is mildly increased. LV systolic function is moderately to severely reduced. The estimated left ventricle ejection fraction is 30-35%(abnormal). RV size is moderately dilated. Left atrium chamber is moderately dilated. There is mild thickening of mitral valve anterior leaflet. There is trace mitral regurgitation. There is mild tricuspid regurgitation. EKG 02/01/19 :Sinus bradycardia ,Probably old inferior myocardial infarction , Poor R progression in chest leads. EKG 08/03/18-sinus rhythm (slow) normal QRS inferior infarct 35 1/3 in aVF probable septal infarct. R<0.15 mV in V2 with Anh V3. slight intraventricular conduction delay ST-T mid and left precordial ST-T changes consistent with infarct. Neg T in V4 V5 V6 with small negative T in V3 inferior ST-T changes consistant with infarct negative T in aVF with negative T in II III conclusion abnormal ECG. Holter Monitor 08/03/18: Normal sinus rhythm. Sinus bradycardia. Few episodes of ventricular bigeminy and trigeminy. Frequent PAC's and PVC's but not correlated with symptoms. EKG 01/28/18: NSR. Inferior IL, age undetermined. Poor R progression in chest leads EKG 10/29/17 : low voltage chest leads Porbably old anterior myocardial infarction inferior nyocardial infarction age undetermined EK06/12/2017 Sinus bradycardia. Nonspecific QRS widening. (Possibly recent) inferior and (age undetermined). Inferior - lateral infarct. T abnormality- Possible inferior and lateral ischemia. ABNORMAL. 04/29/17 EKG: Inferior myocardial infarction, age undetermined. Poor R progression in chest leads. Inverted T waves, anterior leads. 03/29/17 EKG: Sinus rhythm occasional premature ventricular complexes. Left ventricular hypertrophy with QRS widening and repolarization abnormality. Inferior infarct, age undetermined. Anterolateral infarct, age undetermined. Abnormal ECG. No previous ECGs available. ECHO 01/07/18: LV chamber is moderately dilated. LV wall thickness is moderately increased. There are multiple segmental wall motion abnormalities. The estimated left ventricle ejection fraction is 35-40%(abnormal).There is increased left atrial pressure and Grade II diastolic dysfunction. Left atrium chamber is mildly to moderately dilated. The aortic valve is mildly calcified. There is mild mitral regurgitation. There is mild tricuspid regurgitation.The ascending aorta is mildly dilated. 05/12/17 ECHO: LV chamber is moderately dilated. There is mild concentric LV hypertrophy. The estimated left ventricle ejection fraction is 35-40%(abnormal). LV relaxation is impaired. Left Atrium chamber is mild dilated. Sinus bradycardia. 03/24/2017 ECHO: Mild enlargement of left ventricle cavity. Moderate global left ventricular systolic dysfunction. These segments of the LV are hypokinetic: inferior segment. Normal appearance of the mitral valve. Mild mitral valve regurgitation CHEST: 03/25/17 Tip of balloon pump is in satisfactory position. Mild cardiomegaly. [facility]: 03/31/17 : 3-vessel coronary artery disease. Anomalous circ, left femoral RCA cusp. Severe left ventricular diastolic dysfunction. Status post recent myocardial infarction. [facility] [place], [place] - [facility] 07/28/2019 18:00:53 01/05/2020 text/html 01/05/20 CC: Dyspnea 44 year-old white man with a PMH of CAD s/p [place] (03/24/17) and CABG 4 v. (03/26/17, Mem. [facility]osp., Dr. Doran, LINDER to LAD, sequential SVG to distal RCA and PDA, SVG to diagonal), ischemic cardiomyopathy, hypertension, former tobacco use (60 pack-year), paroxysmal atrial fibrillation, obesity, presents today for follow-up with a chief complaint of dyspnea. He was here last 6 months ago. Had 10 lb weight gain. Since then he has been doing fairly well with no new complaints. 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 He completed cardiac rehab 33 visits ending 07/24/17. He is having right leg sciatica problems worse at rest. Denies chest pain. Pt reports continued mild/stable SOB with exertion. No shortness of breath at rest. No orthopnea. No PNDs. Has intermittent stable 1-2+ BLE edema, worse in PM and resolved in AM. No dizziness. No syncope or near syncope. Tolerating medications without difficulty. Pt reports increased activity with no exercise. He quit smoking in 03/2017 after his [place]. Reports home BP 125-117/75-82. Had chest pain in hospital 03/2017 found to have STEMI and atrial fibrillation with rapid ventricular response. EKG showed Q wave in anterior leads and [address] elevation in lead 3. EF was SEVERELY elevated POST IL at 35% with apical and intra-apical hypokinesis. Had 06/28/19 ECHO: LV chamber is moderately dilated. LV wall thickness is mildly increased. There is mild global hypokinesis. The estimated left ventricle ejection fraction is 35-40%(abnormal). Sinus bradycardia. Had ECHO done in 03/31/19 showed LV systolic function is moderately to severely reduced , EF 30-35% , mild tricuspid regurgitation. (Reduced from previous of 35-40%). Had an exercise nuclear stress test on 03/31/19 that was negative for ischemia but with a fixed defect consistent with an old infarction in inferior area. LVEF 40%. Had ECHO on 01/07/18: LV chamber is moderately dilated. LV wall thickness is moderately increased. There are multiple segmental wall motion abnormalities. The estimated left ventricle ejection fraction is 35-40%(abnormal). There is increased left atrial pressure and Grade II diastolic dysfunction. Left atrium chamber is mildly to moderately dilated. The aortic valve is mildly calcified. There is mild mitral regurgitation. There is mild tricuspid regurgitation.The ascending aorta is mildly dilated. Had 05/12/17 ECHO: LV chamber is moderately dilated. There is mild concentric LV hypertrophy. The estimated left ventricle ejection fraction is 35-40%(abnormal). LV relaxation is impaired. Left Atrium chamber is mild dilated. Sinus bradycardia. Had CATH done in 03/31/17 revealed 3-vessel coronary artery disease. Anomalous circ, left femoral RCA cusp. Severe left ventricular diastolic dysfunction. Status post recent myocardial infarction and transferred for CABG surgery. Had Holter done in 08/03/18 showed Normal sinus rhythm. Sinus bradycardia. Few episodes of ventricular bigeminy and trigeminy. Frequent PAC's and PVC's but not correlated with symptoms. Results from this visit, or from the past: 11/05/19 BMP: NA:140, K:4.1, CL:104, C02:27, GLU:86, BUN:17, CR:0.92. 11/05/19 Lipid- TC:161, TR:66, HDL:65, LDL:81. 04/24/2019 GL 113 BUN 19 CR 0.85 NA 138 K 4.4 CH 104 CO2 27 CA 9.4 MG 1.9 TSH 1.75 04/24/2019 CH 123 HDL 53 TR 49 LDL 56 03/27/2018: TC 103, HDL 43, TR 64, LDL 46 01/07/18: GLU:98, BUN:23, CR: 1.03, NA: 139, K:5.0, CL:105, CO2: 27, AST:23, ALT:33, M.0, TSH: 2.51 07/08/17: MG 2.1. 07/08/17: SOD 139, K 5.1, CL 105, CO2 28, GL 97, BUN 16, CR 1.06. 05/30/17 : TC 139 ,TG 65 ,HDL 53,LDL 73 , 03/31/17: WBC: 9.6 HGT: 11.4 HCT: 33.8 PLAT: 185 03/31/17: NA: 141 K: 4.0 CH: 100 CO2: 28 B: 24 CR: 0.8 EK05/19/19 abnormal ekg EK05/05/19 Normal sinus rhythm. Inferior IL, age undertemined. Inverted T waves, anterior leads. 03/31/19 TDM -Negative stress test for ischemia. Fixed defect consistent with old infarction in inferior area. No previous study to compare. Abnormal stress test. Artifact noted. Exercise tolerance: Average. Submaximal exercise stress. The sensitivity of the test is limited by the inability to achieve target heart rate. LVEF 40%. Had 06/28/19 ECHO: LV chamber is moderately dilated. LV wall thickness is mildly increased. There is mild global hypokinesis. The estimated left ventricle ejection fraction is 35-40%(abnormal). Sinus bradycardia. 03/31/19 ECHO: Study quality: Technically difficult. LV chamber is moderately dilated. LV wall thickness is mildly increased. LV systolic function is moderately to severely reduced. The estimated left ventricle ejection fraction is 30-35%(abnormal). RV size is moderately dilated. Left atrium chamber is moderately dilated. There is mild thickening of mitral valve anterior leaflet. There is trace mitral regurgitation. There is mild tricuspid regurgitation. EKG 02/01/19 :Sinus bradycardia ,Probably old inferior myocardial infarction , Poor R progression in chest leads. EKG 08/03/18-sinus rhythm (slow) normal QRS inferior infarct 35 1/3 in aVF probable septal infarct. R<0.15 mV in V2 with Anh V3. slight intraventricular conduction delay ST-T mid and left precordial ST-T changes consistent with infarct. Neg T in V4 V5 V6 with small negative T in V3 inferior ST-T changes consistant with infarct negative T in aVF with negative T in II III conclusion abnormal ECG. Holter Monitor 08/03/18: Normal sinus rhythm. Sinus bradycardia. Few episodes of ventricular bigeminy and trigeminy. Frequent PAC's and PVC's but not correlated with symptoms. EKG 01/28/18: NSR. Inferior IL, age undetermined. Poor R progression in chest leads EKG 10/29/17 : low voltage chest leads Porbably old anterior myocardial infarction inferior nyocardial infarction age undetermined EK06/12/2017 Sinus bradycardia. Nonspecific QRS widening. (Possibly recent) inferior and (age undetermined). Inferior - lateral infarct. T abnormality- Possible inferior and lateral ischemia. ABNORMAL. 04/29/17 EKG: Inferior myocardial infarction, age undetermined. Poor R progression in chest leads. Inverted T waves, anterior leads. 03/29/17 EKG: Sinus rhythm occasional premature ventricular complexes. Left ventricular hypertrophy with QRS widening and repolarization abnormality. Inferior infarct, age undetermined. Anterolateral infarct, age undetermined. Abnormal ECG. No previous ECGs available. ECHO 01/07/18: LV chamber is moderately dilated. LV wall thickness is moderately increased. There are multiple segmental wall motion abnormalities. The estimated left ventricle ejection fraction is 35-40%(abnormal).There is increased left atrial pressure and Grade II diastolic dysfunction. Left atrium chamber is mildly to moderately dilated. The aortic valve is mildly calcified. There is mild mitral regurgitation. There is mild tricuspid regurgitation.The ascending aorta is mildly dilated. 05/12/17 ECHO: LV chamber is moderately dilated. There is mild concentric LV hypertrophy. The estimated left ventricle ejection fraction is 35-40%(abnormal). LV relaxation is impaired. Left Atrium chamber is mild dilated. Sinus bradycardia. 03/24/2017 ECHO: Mild enlargement of left ventricle cavity. Moderate global left ventricular systolic dysfunction. These segments of the LV are hypokinetic: inferior segment. Normal appearance of the mitral valve. Mild mitral valve regurgitation CHEST: 03/25/17 Tip of balloon pump is in satisfactory position. Mild cardiomegaly. [facility]: 03/31/17 : 3-vessel coronary artery disease. Anomalous circ, left femoral RCA cusp. Severe left ventricular diastolic dysfunction. Status post recent myocardial infarction. [facility] 01/05/2020 17:58:04
== END 2025-02-23 08:16 | disposition home or self-care (01) ==
LOC: CHSIMG 08:17
PROVIDERS: PCP Family Medicine; Visit Provider Nurse Practitioner Family
DX: E04.9 Nontoxic goiter, unspecified (principal); R22.1 Localized swelling, mass and lump, neck
CPT/HCPCS: 76536

== ENCOUNTER 2025-05-25 11:38 | Outpatient (CLI) | payer OTHER, SELFPAY ==
--- OUTSIDE RECORDS SUMMARY | 2025-05-25 11:41 | XMS_ITS | Encounter Summary ---
Author Organization [facility] Address [address] [place] [id number] Care Team Providers Care Passport Support Associate Name Role Phone Geovanni Meyer MD Primary Care Provider [phone] Sugar Patterson MD Unavailable El Tariq MD Unavailable [phone] Barbara Flowers MD Unavailable [phone] Tony Jimenez PA-C Unavailable [phone] Encounter Details Date Type Department Care Team (Latest Contact Info) Description 04/18/2022 TextMaster Message [facility] [place] [address] Sugar Patterson MD [address] [place] [address] Question regarding NM PHARM NUC STRESS TEST 1DAY Social History Tobacco Use Types Packs/Day Years Used Date Smoking Tobacco: Former Smokeless Tobacco: Never Snuff Alcohol Use Standard Drinks/Week Comments Yes 0 (1 standard drink = 0.6 oz pur e alcohol) 5-10 drinks per week Sex and Gender Information Value Date Recorded Sex Assigned at Male 12/13/2024 11:32 AM TEAM LEAD Legal Sex Male 10:18 AM CDT Gender [...] Department Care Team (Latest Contact Info) Description 06/10/2025 9:30 AM CDT Office Visit [facility] [address] [place] [phone] Tony Jimenez PA-C [address] [place] [phone] 06/10/2025 9:30 AM CDT Allied Health/Nurse Visit [facility] [address] [place] [phone] Barbara Flowers MD [address] [place] [phone] 06/23/2025 1:00 AM CDT Allied Health/Nurse Visit [facility] [address] [place] [phone] Barbara Flowers MD [address] [place] [phone] 07/20/2025 1:30 PM CDT Appointment [facility] [address] [place] [address] Sugar Patterson MD [address] [place] [phone] 07/25/2025 1:30 PM CDT Office Visit [facility] [address] [place] [phone] Sugar Patterson MD [address] [place] [phone] documented as of this encounter Visit Diagnoses Not on filedocumented in this encounter Care Teams Passport Support Associate Relationship Specialty Start Date End Date Geovanni Meyer MD [address] [place] [address] PCP - General FAMILY PRACTICE 08/06/21 Sugar Patterson MD [address] [place] [address] [employer] Coordinator CARDIOVASCULAR DISEASE 10/31/21 El Tariq MD [address] [address] Vascular/Cardiologis t INTERVENTIONAL CARDIOLOGY 12/14/21 Barbara Flowers MD [address] [address] Consulting Physician Electrophysiology 11/19/23 Tony Jimenez PA-C [address] [place] [phone] PHYSICIAN STONE HAND 11/19/23 documented as of this encounter
--- OUTSIDE RECORDS SUMMARY | 2025-05-25 11:41 | XMS_ITS | Data Portability ---
Author Organization [place] - [facility] OFFICE Address [facility] [place] [address] Care Team Providers Care Overnight Caregiver Name Role Phone CLAY LOCO Primary Care Provider CLAY LOCO Referring Provider Assessment Encounter Date Assessment Date Assessment LastModified [...] factor modification, and medical follow-up as noted. Not available 05/19/2019 15:55:08 07/28/2019 07/28/2019 Discussed [...] factor modification, and medical follow-up as noted. [email or web address] Not available 07/28/2019 17:47:46 01/05/2020 01/05/2020 Discussed [...] factor modification, and medical follow-up as noted. Not available 01/05/2020 15:50:46 Plan of Treatment [...] 40 mg tablet 2019 020 INTERFACE [id number], [address] [place], [address], 0 17:56:47 Lasix 20 mg tablet 2018 019 [email or web address] [id number], [address] [place], [address], 9 17:05:44 Patient TargetsNo targets recorded. Patient Instructions Encounter Date Encounter Id Patient Instructions Last Modified By Organization Details Last Modified Time 02/01/2019 [id number] When You Want to Lose Weight: Care Instructions [email or web address] Not available 02/01/2019 11:48:47 atrial fibrillation: care instructions Not available 02/01/2019 11:48:47 high blood pressure: care instructions [email or web address] Not available 02/01/2019 11:48:47 learning about high blood pressure [email or web address] Not available 02/01/2019 11:48:47 high cholesterol : care instructions [email or web address] Not available 02/01/2019 11:48:47 learning about low-fat eating [email or web address] Not available 02/01/2019 11:48:47 05/05/2019 [id number] heart attack: ca re instructions [email or web address] Not available 05/05/2019 17:15:21 When You Want to Lose Weight: Care Instructions Not available 05/05/2019 11:22:19 heart failure: care instructions [email or web address] Not available 05/05/2019 17:15:21 high cholesterol : [...] 11:04:31 Patient was seen and evaluated by Sivan HUGHES. Plan of care was discussed with collaborating physician. Note cosigned by Brayden Chatman MD. Not available 05/05/2019 11:04:25 05/19/2019 [id number] heart attack: ca re instructions [email or web address] Not available 05/19/2019 17:10:37 When You Want to Lose Weight: Care Instructions [email or web address] Not available 05/19/2019 17:10:37 heart failure: care instructions Not available 05/19/2019 17:10:37 high cholesterol : care instructions [email or web address] Not available 05/19/2019 17:10:37 learning about low-fat eating Not available 05/19/2019 17:10:37 atrial fibrillation: care instructions [email or web address] Not available 05/19/2019 17:10:37 high blood pressure: care instructions [email or web address] Not available 05/19/2019 17:10:37 learning about high blood pressure [email or web address] Not available 05/19/2019 17:10:37 07/28/2019 [id number] heart attack: ca re instructions [email or web address] Not available 07/28/2019 18:00:38 When You Want to Lose Weight: Care Instructions [email or web address] Not available 07/28/2019 18:00:38 heart failure: care instructions Not available 07/28/2019 18:00:38 high cholesterol : care instructions [email or web address] Not available 07/28/2019 18:00:38 learning about low-fat eating [email or web address] Not available 07/28/2019 18:00:38 atrial fibrillation: care instructions Not available 07/28/2019 18:00:38 high blood pressure: care instructions Not available 07/28/2019 18:00:38 learning about high blood pressure [email or web address] Not available 07/28/2019 18:00:38 01/05/2020 [id number] heart attack: ca re instructions [email or web address] Not available 01/05/2020 17:56:45 When You Want to Lose Weight: Care Instructions [email or web address] Not available 01/05/2020 17:56:45 heart failure: care instructions [email or web address] Not available 01/05/2020 17:56:44 high cholesterol : care instructions [email or web address] Not available 01/05/2020 17:56:44 learning about low-fat eating [email or web address] Not available 01/05/2020 17:56:44 atrial fibrillation: care instructions [email or web address] Not available 01/05/2020 17:56:45 high blood pressure: care instructions [email or web address] Not available 01/05/2020 17:56:44 learning about high blood pressure [email or web address] Not available 01/05/2020 17:56:44 Reason for Referral None Reported. Results Created Date Observation Date Name Description Value Unit Range Abnormal Flag Note LastModifiedBy Organization Detail LastModifiedTime 02/02/20 19 02/01/2019 elect aleksey pachecogr am No observ ation record ed. [email or web address] Not Available 02/08 12:03:40 04/04/20 19 03/31/2019 , echo ardio gram No observ ation record ed. [email or web address] Not Available 2018 14:53:55 05/11/20 19 05/05/2019 elect aleksey pachecogr am No observ ation record ed. [email or web address] Brayden Chatman MD [address] [facility] [address], [place], [address], 05/11/2019 17:23:08 05/18/20 19 03/31/2019 óscar curiel stres s test (PROC ) No observ ation record ed. [email or web address] Not Available 2018 13:03:13 05/21/20 19 05/19/2019 elect aleksey french am No observ ation record ed. [email or web address] Brayden Chatman MD [address] [facility] [address], [place], [address], 05/21/2019 12:45:03 07/03/20 19 06/28/2019 , [facility] veenadio gram No observ ation record ed. [facility] [address] [facility] [address], [place], [address], 07/27/2019 11:35:39 01/19/20 20 01/05/2020 [facility] aleksey french am No observ ation record ed. [email or web address] Not Available 2019 09:43:11 Result Notes None recorded. Problems Name Problem SNOMED Code Status Onset Date Resolution Date Notes Provider Name and Address Organization Details Recorded Time Benign essential hypertensi on 0341589 Active 2016 EDVIN [facility] 7 15:08:44 Atrial fibrillati on 05544912 Active 2016 with rapid ventricula r response EDVIN [facility] 7 15:16:42 Hypothyroi dism 74021688 Active 2016 Felix Felton [facility] 7 15:16:51 Morbid obesity 450247528 Active 2016 Felix Felton [facility] 7 15:17:00 Coronary arterioscl erosis 05215148 Active 2016 [facility]: 03/31/17 : 3-vessel coronary artery disease. Anomalous circ, left femoral RCA cusp. Severe left ventricula r diastolic dysfunctio n. Status post recent myocardial infarction . Felix Felton [facility] 7 15:20:53 History of smoking Active 2016 Quit 03/2017 Hortencia Pintoaria [facility] 8 14:53:13 Myocardial infarction 06208772 Active 2016 Mega Kelley [facility] 7 16:46:15 Hyperlipid emia 62877832 Active 2016 Mega Benson [facility] 7 16:54:32 Ischemic congestive cardiomyop athy 058891524 Active 2018 Svian Doranugher [facility] 9 13:27:54 Systolic heart failure 059173376 Active 2018 Sivan Bonnie [facility] 9 13:37:41 Problem Notes None recorded. Procedures Surgical History Date Name Laterality Status Provider Name and Address Organization Details Recorded Time Cardiac Catheterization completed Felix Felton [facility] 04/26/2017 15:26:11 Imaging Results None recorded. Procedure Notes None recorded. Medical Equipment None [...] in Arterial blood by Pulse oximetry Systolic And Diastolic Provider Name and Address Organization Details Last Updated DateTime 0 193.04 cm 41.6 kg/m2 297263. 59 g 69 /min 97 % 97 % 138/90 mm[Hg] JOHN PINA [facility] 0 16:06:03 Date Recorded Body height Body mass index (BMI) Body weight Oxygen saturation Oxygen saturation in Arterial blood by Pulse oximetry Heart rate Systolic And Diastolic Provider Name and Address Organization Details Last Updated DateTime 9 193.04 cm 37.6 kg/m2 535135. 04 g 97 % 97 % 65 /min 118/82 mm[Hg] SUGEY Bates [facility] 9 11:01:21 Date Recorded Body height Body mass index (BMI) Body weight Heart rate Oxygen saturation Oxygen saturation in Arterial blood by Pulse oximetry Systolic And Diastolic Provider Name and Address Organization Details Last Updated DateTime 9 193.04 cm 39.6 kg/m2 398284. 52 g 65 /min 97 % 97 % 112/82 mm[Hg] Francine Duran [facility] 9 10:48:41 Date Recorded Body height Body mass index (BMI) Body weight Oxygen saturation Oxygen saturation in Arterial blood by Pulse oximetry Heart rate Systolic And Diastolic Provider Name and Address Organization Details Last Updated DateTime 9 193.04 cm 39.3 kg/m2 697188. 34 g 97 % 97 % 65 /min 128/98 mm[Hg] JENNIFER BELTREVINS [facility] 9 16:05:24 Date Recorded Body height Body mass index (BMI) Body weight Heart rate Oxygen saturation Oxygen saturation in Arterial blood by Pulse oximetry Systolic And Diastolic Provider Name and Address Organization Details Last Updated DateTime 9 193.04 cm 40.4 kg/m2 016073. 67 g 68 /min 94 % 94 % 150/90 mm[Hg] Lissett Lowry [facility] 9 16:47:31 Social History Question Answer Notes LastModified by Organizat ion Details LastModified Time Tobacco Smoking Status Former Smoker quit 03/22/17 Annie Gene [place], [place] - [facility] 04/29/2017 15:54:09 What Is Your Level Of Caffeine Consumption? Occasional [email or web address] Information not available 04/29/2017 How Much Tobacco Do You Chew? None [email or web address] Information not available 04/29/2017 What Type Of Diet Are You Following? CARDIAC [email or web address] Information not available 04/29/2017 Which Illicit Or Recreational Drugs Have You Used? No [email or web address] Information not available 04/29/2017 Live Alone Or With Others? With Others Information not available 04/29/2017 Marital Status Informatio n not available 04/26/2017 What Was The Date Of Your Most Recent Tobacco Screening? 05/19/2019 Information not available 06/10/2019 How Many Children Do You Have? 1 [email or web address] Information not available 04/29/2017 How Much Tobacco Do You Smoke? No [email or web address] Information not available 04/29/2017 General Stress Level Medium [email or web address] Information not available 04/29/2017 How Many Years Have You Smoked Tobacco? 30 Information not available 04/26/2017 Sex: Unknown Functional Status Question Answer Note LastModified by Organizat ion Details LastModified Time What is your level of alcohol consumption? None [email or web address] Information not available 04/29/2017 What is your occupation? [employer] Information not available 04/29/2017 Do you or have you ever used e-cigarettes or vape? Never used electronic cigarettes Information not available 01/03/2020 What is your exercise level? None [email or web address] Information not available 04/29/2017 Mental Status None recorded. Family History Relationship Description Onset Age of this Age Resolved Age Notes LastModified by Organization Details LastModified Time Father Father 40 68 with Conges tive heart failue [email or web address] Not available 04/26/2017 15:11:50 Father Diabetes mellitus [email or web address] Not available 2016 15:12:07 Father Heart disease [email or web address] Not available 2016 15:53:06 Father Myocardial infarction [email or web address] Not available 04/29 15:53:14 Father Hypertensive disorder [email or web address] Not available 2016 15:53:39 Sister Diabetes mellitus [email or web address] Not available 2016 15:12:07 Sister Hypertensive disorder [email or web address] Not available 2016 15:12:34 Brother Hypertensive disorder [email or web address] Not available 2016 15:12:34 Paternal Grandmother Diabetes mellitus [email or web address] Not available 2016 15:53:27 Mother Hypertensive disorder [email or web address] Not available 2016 15:53:42 Medical History Condition Response Coronary Artery Disease Y Myocardial Infarction Y Hyperlipidemia Y Atrial Fibrillation Y Thyroid Disease Y Hypertension Y Past Encounters Encounter ID Performer Location Encounter Start Date Encounter Closed Date Diagnosis/Indication Diagnosis SNOMED-CT Code Diagnosis ICD10 Code Diagnosis Note [id number] Brayden Chatman MD [facility] [address] [place] [address] 04/29/2017 15:25:24 04/30/2017 11:10:31 History of smoking 6357394082 9088419 Z87.891 Pt has quit since CABG. Benign ess ential hypertension 6386208 I10 Patient's blood pressure is well-contr olled on present medical therapy. Patient is tolerating , without difficulty , the current medication s. I have not made changes to the current regimen. Patient was advised to eat a low-sodium diet (2 grams sodium or less daily). Coronary arteriosclerosis 89608559 I25.10 S/p IN and CABG. Obtain repeat echo to f/u on mod.-sever e LV systolic dysfunctio n. Continue ASA, Brilinta, metoprolol , lisinopril . Needs to keep LDL less than 70, and HDL more than 40. Changed to Crestor 04/29/17 with FLP in 4 weeks. Begin cardiac rehab at [place]. Hyperlipidemia 77702412 E78.5 Needs to keep LDL less than 70, and HDL more than 40. At time of recent hospitatiz ation, LDL 100. Atrial fibrillation 4943 6004 I48.91 Had afib with recent hospitaliz ation. EKG today with NSR. Continue amiodarone and ASA. [id number] MD Devorah [facility] Office [address] [facility] [place] [address] 06/12/2017 14:17:39 06/16/2017 09:02:04 Atrial fibrillation 50729386 I48.91 Had afib with recent hospitaliz ation. EKG today with sinus bradycardi a. Continue amiodarone and ASA. Coronary arteriosclerosis 12648366 I25.10 S/p IN and CABG. Obtained repeat echo to f/u [...] more than 40. Began cardiac rehab at [place]. History of smoking 80473 30658 7546447 Z87.891 Pt has quit since CABG. Benign ess ential hypertension 4165995 I10 Patient's blood pressure is well-contr olled on present medical therapy. Patient is tolerating , without difficulty , the current medication s. I have not made changes to the current regimen. Patient was advised to eat a low-sodium diet (2 grams sodium or less daily). Hyperlipidemia 73865288 E78.5 Needs to keep LDL less than 70, and HDL more than 40. At time of recent hospitaliz ation, LDL 100. On 05/30/17 : TC 139 ,TG 65 ,HDL 53,LDL 73 , Increased rosuvastat in to 20 mg qd 06/12/17. [id number] Mega Benson MD [facility] [address] [place] [address] 07/30/2017 14:51:50 07/31/2017 10:18:29 Benign essential hypertension 9695378 I10 Patient's blood pressure is well-contr olled on present medical therapy. Patient is tolerating , without difficulty , the current medication s. I have not made changes to the current regimen. Patient was advised to eat a low-sodium diet (2 grams sodium or less daily). Atrial fibrillation 4943 6004 I48.91 No recurrence . Had afib with IN/hospita lization. EKG recently with sinus bradycardi a. Continue amiodarone and ASA. Coronary arteriosclerosis 69680345 I25.10 S/p IN and CABG. Obtained repeat echo to f/u [...] more than 40. Completed cardiac rehab at [place]. History of smoking 23190 32919 1800785 Z87.891 Pt has quit since CABG. Hyperlipidemia 35684889 E78.5 Needs to keep LDL less than 70, and HDL more than 40. At time of recent hospitaliz ation, LDL 100. On 05/30/17 : TC 139 ,TG 65 ,HDL 53,LDL 73 , Increased rosuvastat in to 20 mg qd 06/12/17. [id number] Mega Benson MD [facility] [place] [address] 10/29/2017 15:46:50 10/30/2017 10:12:30 Hyperlipidemia 62723163 E78.5 Needs to keep LDL less than 70, and HDL more than 40. At time of recent hospitaliz ation, LDL 100. On 05/30/17 : TC 139 ,TG 65 ,HDL 53,LDL 73 , Increased rosuvastat in to 20 mg qd 06/12/17. Benign ess ential hypertension 8338377 I10 Patient's blood pressure is well-contr olled on present medical therapy. Patient is tolerating , without difficulty , the current medication s. I have not made changes to the current regimen. Patient was advised to eat a low-sodium diet (2 grams sodium or less daily). Atrial fibrillation 4943 6004 I48.91 No recurrence . Had afib with IN/hospita lization. EKG recently with sinus bradycardi a. Continue amiodarone and ASA. For amiodarone monitoring will need to follow yearly ECG, CXR, AST/ALT, TSH. Obtain CMP/Mg/TSH . Coronary arteriosclerosis 53447211 I25.10 S/p IN and CABG. Obtained repeat echo to f/u [...] more than 40. Completed cardiac rehab at [place]. Obtain echo to evaluate for structural /functiona l disease and consider stopping amiodarone for IN/CABG related afib if LV systolic function stable or improved. History of smoking 16490 69698 2180756 Z87.891 Pt has quit since CABG. [id number] Mega Benson MD [facility] [address] [place] [address] 01/28/2018 13:50:45 01/31/2018 13:36:34 Coronary arteriosclerosis 76239692 I25.10 S/p IN and CABG. Obtained repeat echo to f/u [...] 2, K 5 Completed cardiac rehab at [place] 07/2017. Had ECHO on 01/07/18: LV chamber is moderately dilated. LV wall thickness is moderately increased. There are multiple segmental wall motion abnormalit ies. The estimated left ventricle ejection fraction is 35-40%(abn ormal).The re is increased left atrial pressure and Grade II diastolic dysfunctio n. Hyperlipidemia 24796326 E78.5 Needs to keep LDL less than 70, and HDL more than 40. At time of recent hospitaliz ation, LDL 100. On 05/30/17 : TC 139 ,TG 65 ,HDL 53,LDL 73 , Increased rosuvastat in to 20 mg qd 06/12/17. Obtain FLP. Benign ess ential hypertension 8626962 I10 Patient's blood pressure is well-contr olled on present medical therapy. Patient is tolerating , without difficulty , the current medication s. I have not made changes to the current regimen. Patient was advised to eat a low-sodium diet (2 grams sodium or less daily). Atrial fibrillation 4943 6004 I48.91 No recurrence . Had afib with IN/hospita lization. EKG recently with sinus bradycardi a. Continue amiodarone and ASA. For amiodarone monitoring will need to follow yearly ECG, CXR, AST/ALT, TSH. 01/07/18: TSH 2.51, Mg 2, K 5 Stop amiodarone as per patient preference . Obtain 24 Hr Holter in 2 months. History of smoking 70315 34512 5180153 Z87.891 Pt has quit since CABG. [id number] Mega Benson MD [facility] [address] [place] [address] 04/01/2018 11:02:45 04/02/2018 09:54:48 Coronary arteriosclerosis 51753805 I25.10 S/p IN and CABG. Obtained repeat echo to f/u [...] 2, K 5 Completed cardiac rehab at [place] 07/2017. Had ECHO on 01/07/18: LV chamber is moderately dilated. LV wall thickness is moderately increased. There are multiple segmental wall motion abnormalit ies. The estimated left ventricle ejection fraction is 35-40%(abn ormal).The re is increased left atrial pressure and Grade II diastolic dysfunctio n. Hyperlipidemia 05669721 E78.5 Needs to keep LDL less than 70, and HDL more than 40. At time of recent hospitaliz ation, LDL 100. On 05/30/17 : TC 139 ,TG 65 ,HDL 53,LDL 73 , Increased rosuvastat in to 20 mg qd 06/12/17. Obtained FLP 46 03/27/18. Benign ess ential hypertension 1846691 I10 Patient's blood pressure is well-contr olled on present medical therapy. Patient is tolerating , without difficulty , the current medication s. I have not made changes to the current regimen. Patient was advised to eat a low-sodium diet (2 grams sodium or less daily). Atrial fibrillation 4943 6004 I48.91 No recurrence . In regular rhythm on exam. Had afib with IN/hospita lization. EKG recently with sinus bradycardi a. Continue ASA. 01/07/18: TSH 2.51, Mg 2, K 5 Stopped amiodarone 01/2018 as per patient preference . Obtain 24 Hr Holter now, 2 months after stopping amiodarone . History of smoking 70205 66900 3791939 Z87.891 Pt has quit since CABG. [id number] Mega Benson MD [facility] [place] [address] 08/03/2018 10:33:31 08/03/2018 11:34:17 Coronary arteriosclerosis 65357858 I25.10 S/p IN and CABG. Obtained repeat echo to f/u [...] more than 40. Completed cardiac rehab at [place] 07/2017. Hyperlipidemia 53882366 E78.5 Needs to keep LDL less than 70, and HDL more than 40. At time of recent hospitaliz ation, LDL 100. On 05/30/17 : TC 139 ,TG 65 ,HDL 53,LDL 73 , Increased rosuvastat in to 20 mg qd 06/12/17. Obtained FLP LDL 46 03/27/18. Benign ess ential hypertension 9871022 I10 Patient's blood pressure is well-contr olled on present medical therapy. Patient is tolerating , without difficulty , the current medication s. I have not made changes to the current regimen. Patient is advised to maintain a blood pressure diary. Patient was advised to eat a low-sodium diet (2 grams sodium or less daily). BP monitor. Atrial fibrillation 4943 6004 I48.91 No recurrence . In regular rhythm on exam and EKG. Had afib with IN/hospita lization. EKG recently with sinus bradycardi a. Continue ASA. 01/07/18: TSH 2.51, Mg 2, K 5 Stopped amiodarone 01/2018 as per patient preference . Obtain 24 Hr Holter now, 6 months after stopping amiodarone . History of smoking 12782 17904 5216625 Z87.891 Pt has quit since CABG. [id number] Mega Benson MD [facility] [address] [place] [address] 02/01/2019 10:40:43 02/01/2019 11:49:14 Coronary arteriosclerosis 99753425 I25.10 S/p IN and CABG. Obtain repeat echo to evaluate [...] more than 40. Completed cardiac rehab at [place] 07/2017. Hyperlipidemia 59356674 E78.5 Needs to keep LDL less than 70, and HDL more than 40. At time of recent hospitaliz ation, LDL 100. On 05/30/17 : TC 139 ,TG 65 ,HDL 53,LDL 73 , Increased rosuvastat in to 20 mg qd 06/12/17. Obtained FLP LDL 46 03/27/18. Obtain FLP. Benign ess ential hypertension 2840207 I10 Patient's blood pressure is well-contr olled on present medical therapy. Patient is tolerating , without difficulty , the current medication s. I have not made changes to the current regimen. Patient is advised to maintain a blood pressure diary. Patient was advised to eat a low-sodium diet (2 grams sodium or less daily). BP monitor. Atrial fibrillation 4943 6004 I48.91 No recurrence . In regular rhythm on exam and EKG. Had afib with IN/hospita lization. EKG recently with sinus bradycardi a. [...] TSH given frequent PVCs. History of smoking 28034 76467 7696238 Z87.891 Pt has quit since CABG. Morbid obesity 045509872 E66.01 20 lb. weight loss recommende d over the next 2 months. [id number] Brayden Chatman MD [facility] [address] [place] [address] 05/05/2019 10:35:17 05/31/2019 15:30:16 Coronary arteriosclerosis 86825843 I25.10 S/p IN and CABG. Had ECHO done in 03/31/19 [...] more than 40. Completed cardiac rehab at [place] 07/2017. Hyperlipidemia 19601912 E78.5 Needs to keep LDL less than 70, and HDL more than 40. At time of recent hospitaliz ation, LDL 100. On 05/30/17 : TC 139 ,TG 65 ,HDL 53,LDL 73 , Increased rosuvastat in to 20 mg qd 06/12/17. 04/24/2019 TC 123 HDL 53 TR 49 LDL 56 Benign ess ential hypertension 4230843 I10 Patient's blood pressure is well-contr olled on present medical therapy. Patient is tolerating , without difficulty , the current medication s. I have not made changes to the current regimen. Patient is advised to maintain a blood pressure diary. Patient was advised to eat a low-sodium diet (2 grams sodium or less daily). BP monitor. Atrial fibrillation 4943 6004 I48.91 No recurrence . In regular rhythm on exam and EKG. Had afib with IN/hospita lization. EKG recently with sinus bradycardi a. Continue ASA. Stopped amiodarone 01/2018 as per patient preference . Continue metoprolol . Had Holter Monitor 08/03/18: Normal sinus rhythm. Sinus bradycardi a. Few episodes of ventricula r bigeminy and trigeminy. Frequent PAC's and PVC's but not correlated with symptoms. 04/24/19: Mag 1.9, TSH 1.75 History of smoking 11048 22197 3070898 Z87.891 Pt has quit since CABG. Morbid obesity 298112583 E66.01 20 lb. weight loss recommende d over the next 2 months. Myocardial infarction 22 235708 I21.9 Distant hx of in 2017 Continue maximal medical treatment and risk factor modificati on Ischemic c ongestive cardiomyopathy 277656436 I25.5 s/p IN (03/24/17) and 4V CABG (03/26/17) Had ECHO [...] LifeVest pending ICD. 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 Will need ICD implantati on for the protection of sudden cardiac but patient is NOT in agreement at this time. Will continue with maximal medial therapy. Systolic h eart failure 589392841 I50.20 Discussed patient s diagnosis of heart failure with reduced ejection fraction and underlying ischemic cardiomyop athy, including pathophysi ology and prognosis. Discussed importance of controllin g blood pressure, exercising regularly, and minimizing alcohol, caffeine, and decongesta nts. Patient is on a beta-block er. Patient is on an JOYCE-I. Patient is on a diuretic. Advised patient to seek medical attention for [...] or orthopnea. Began Lasix 20 mg QD [id number] Mega Benson MD [place] [facility] [place] [address] 05/19/2019 15:49:09 05/19/2019 17:11:06 Ischemic congestive cardiomyopathy [id number] I25.5 s/p IN (03/24/17) and 4V CABG (03/26/17) Had ECHO [...] LifeVest pending ICD. 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 May need ICD implantati on for the protection of sudden cardiac but patient is NOT in agreement at this time despite discussion of risks and benefits. Will continue with maximal medial therapy. Plan on limited echo for LVEF 07/01/19. Coronary arteriosclerosis [id number] I25.10 S/p IN and CABG. Had ECHO done in 03/31/19 [...] more than 40. Completed cardiac rehab at [place] 07/2017. Systolic h eart failure [id number] I50.20 Discussed patient s diagnosis of heart failure with reduced ejection fraction and underlying ischemic cardiomyop athy, including pathophysi ology and prognosis. Discussed importance of controllin g blood pressure, exercising regularly, and minimizing alcohol, caffeine, and decongesta nts. Patient is on a beta-block er. Patient is on an JOYCE-I. Patient is on a diuretic. Advised patient to seek medical attention for [...] medium strength below knee. Myocardial infarction 22 475746 I21.9 In 2017. Continue ASA, Brilinta. Continue maximal medical treatment and risk factor modificati on. Hyperlipidemia 33972702 E78.5 Needs to keep LDL less than 70, and HDL more than 40. At time of recent hospitaliz ation, LDL 100. On 05/30/17 : TC 139 ,TG 65 ,HDL 53,LDL 73 , Increased rosuvastat in to 20 mg qd 06/12/17. 04/24/2019 TC 123 HDL 53 TR 49 LDL 56 Benign ess ential hypertension 2915127 I10 Patient's blood pressure is well-contr olled on present medical therapy. Patient is tolerating , without difficulty , the current medication s. I have not made changes to the current regimen. Patient is advised to maintain a blood pressure diary. Patient was advised to eat a low-sodium diet (2 grams sodium or less daily). BP monitor. Atrial fibrillation 4943 6004 I48.91 No recurrence . In regular rhythm on exam and EKG. Had afib with IN/hospita lization. EKG recently with sinus bradycardi a. Continue ASA. Stopped amiodarone 01/2018 as per patient preference . Continue metoprolol . Had Holter Monitor 08/03/18: Normal sinus rhythm. Sinus bradycardi a. Few episodes of ventricula r bigeminy and trigeminy. Frequent PAC's and PVC's but not correlated with symptoms. 04/24/19: Mag 1.9, TSH 1.75. History of smoking 66279 95717 [id number] Z87.891 Pt has quit since CABG. Morbid obesity 994087486 E66.01 20 lb. weight loss recommende d over the next 2 months. [id number] Mega Benson MD [facility] [place] [address] 07/28/2019 16:02:32 07/28/2019 18:00:55 Ischemic congestive cardiomyopathy 597376651 I25.5 s/p IN (03/24/17) and 4V CABG (03/26/17) Had 06/28/19 [...] on echo 06/28/19. 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 Will continue with maximal medial therapy. Coronary arteriosclerosis 60633762 I25.10 S/p IN and CABG. Had 06/28/19 ECHO: LV chamber [...] more than 40. Completed cardiac rehab at [place] 07/2017. Systolic h eart failure 313737496 I50.20 Discussed patient s diagnosis of heart failure with reduced ejection fraction and underlying ischemic cardiomyop athy, including pathophysi ology and prognosis. Discussed importance of controllin g blood pressure, exercising regularly, and minimizing alcohol, caffeine, and decongesta nts. Patient is on a beta-block er. Patient is on an JOYCE-I. Patient is on a diuretic. Advised patient to seek medical attention for [...] below knee. Elevate legs. Myocardial infarction 22 183847 I21.9 In 2017. Continue ASA, Brilinta. Continue maximal medical treatment and risk factor modificati on. Hyperlipidemia 00722792 E78.5 Needs to keep LDL less than 70, and HDL more than 40. At time of recent hospitaliz ation, LDL 100. On 05/30/17 : TC 139 ,TG 65 ,HDL 53,LDL 73 , Increased rosuvastat in to 20 mg qd 06/12/17. 04/24/2019 TC 123 HDL 53 TR 49 LDL 56 Benign ess ential hypertension 0057731 I10 Patient's blood pressure is somewhat well-contr olled on present medical therapy. Patient is tolerating , without difficulty , the current medication s. I have not made changes to the current regimen. Patient is advised to maintain a blood pressure diary. Patient was advised to eat a low-sodium diet (2 grams sodium or less daily). BP monitor. Atrial fibrillation 4943 6004 I48.91 No recurrence . In regular rhythm on exam and EKG. Had afib with IN/hospita lization. EKG recently with sinus bradycardi a. Continue ASA. Stopped amiodarone 01/2018 as per patient preference . Continue metoprolol . Had Holter Monitor 08/03/18: Normal sinus rhythm. Sinus bradycardi a. Few episodes of ventricula r bigeminy and trigeminy. Frequent PAC's and PVC's but not correlated with symptoms. 04/24/19: Mag 1.9, TSH 1.75. History of smoking 58823 05980 [id number] Z87.891 Pt has quit since CABG. Morbid obesity 566552969 E66.01 20 lb. weight loss recommende d over the next 2 months. [id number] Mega Benson MD [facility] [facility] [place] [address] 01/05/2020 15:48:46 01/05/2020 17:58:06 Ischemic congestive cardiomyopathy 270271815 I25.5 s/p IN (03/24/17) and 4V CABG (03/26/17). Had 06/28/19 [...] on echo 06/28/19. He works as a geological technician . Will continue with maximal medial therapy. Coronary arteriosclerosis 81675572 I25.10 S/p IN and CABG. Had 06/28/19 ECHO: LV chamber [...] more than 40. Completed cardiac rehab at [place] 07/2017. Systolic h eart failure 396253598 I50.20 Discussed patient s diagnosis of heart failure with reduced ejection fraction and underlying ischemic cardiomyop athy, including pathophysi ology and prognosis. Discussed importance of controllin g blood pressure, exercising regularly, and minimizing alcohol, caffeine, and decongesta nts. Patient is on a beta-block er. Patient is on an JOYCE-I. Patient is on a diuretic. Advised patient to seek medical attention for [...] below knee. Elevate legs. Myocardial infarction 22 763321 I21.9 In 2017. Continue ASA, Brilinta. Continue maximal medical treatment and risk factor modificati on. Hyperlipidemia 65351820 E78.5 Needs to keep LDL less than [...] FLP 1 mo. Benign ess ential hypertension 5223489 I10 Patient's blood pressure is somewhat well-contr olled on present medical therapy. Patient is tolerating , without difficulty , the current medication s. I have not made changes to the current regimen. Patient is advised to maintain a blood pressure diary. Patient was advised to eat a low-sodium diet (2 grams sodium or less daily). BP monitor. Atrial fibrillation 4943 6004 I48.91 No recurrence . In regular rhythm on exam and EKG. Had afib with IN/hospita lization. EKG recently with sinus bradycardi a. Continue ASA. Stopped amiodarone 01/2018 as per patient preference . Continue metoprolol . Had Holter Monitor 08/03/18: Normal sinus rhythm. Sinus bradycardi a. Few episodes of ventricula r bigeminy and trigeminy. Frequent PAC's and PVC's but not correlated with symptoms. 04/24/19: Mag 1.9, TSH 1.75. History of smoking 5451396 28184 [id number] Z87.891 Pt has quit since CABG. Morbid obesity 872228699 E66.01 20 lb. weight loss recommende d over the next 2 months. Health Concerns Section Related Observation LastModified by Organization Detai ls LastModified Time None Recorded Concern Status LastModified by Organization Details LastModified Time None Recorded Advance Directives Directive None Recorded Payers Insurance Date Sequence Insurance Name Policy Number Policy Hunt Covered Member ID Hunt Member ID Guarantor Name 10/29/2020 1 [facility] (PPO) [id number] David Heredia [id number] David Heredia Notes Date Note Type Note Provider Name and Address Organization Details Recorded Time 02/01/2019 text/html 02/01/19 CC : Follow-up CAD s/p CABG 43 year-old white man with CAD s/p IN (03/24/17) and CABG 4 v. (03/26/17, Mem. 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 Patient quit smoking 03/2017. Had chest pain [...] conclusion abnormal ECG. EKG 01/28/18: NSR. Inferior IN, age undetermined. Poor R progression in chest [...] dysfunction. Status post recent myocardial infarction. Mega greco [place] - [facility] 02/01/2019 11:49:12 05/05/2019 text/html 05/05/19 CC: Dyspena 43 year-old white man with a PMH of CAD s/p IN (03/24/17) and CABG 4 v. (03/26/17, [facility] Dr. 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 He completed cardiac rehab 33 visits ending 07/24/17. Denies chest pain. Pt reports continued mild/stable SOB with exertion. No shortness of breath at rest. No orthopnea. No PNDs. Has 1-2+ BLE edema. No dizziness. No syncope or near syncope. Tolerating medications without difficulty. Pt reports increased activity with no exercise. He quit smoking in 03/2017 after his IN. Had chest pain in hospital 03/2017 found to have STEMI and atrial fibrillation with rapid ventricular response. EKG showed Q wave in anterior leads and [address] elevation in lead 3. EF was SEVERELY elevated POST IN at 35% with apical and intra-apical hypokinesis. [...] conclusion abnormal ECG. EKG 01/28/18: NSR. Inferior IN, age undetermined. Poor R progression in chest [...] pump is in satisfactory position. Mild cardiomegaly. [facility]: 03/31/17 : 3-vessel coronary artery disease. Anomalous circ, left femoral RCA cusp. Severe left ventricular diastolic dysfunction. Status post recent myocardial infarction. [place] greco [place] - [facility] 05/31/2019 15:30:15 05/19/2019 text/html 05/19/19 CC: Dyspnea 43 year-old white man with a PMH of CAD s/p IN (03/24/17) and CABG 4 v. (03/26/17, Mem. Hosp., Dr. Doran, LIDNER to LAD, sequential SVG to distal RCA and PDA, SVG to diagonal), ischemic cardiomyopathy, hypertension, former tobacco use (60 pack-year), paroxysmal atrial fibrillation, obesity, presents today for follow-up with a chief complaint of dyspnea. He was here last 3 months ago. Down 2 lbs. Since then he has been doing fairly well with no new complaints. 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 He completed cardiac rehab 33 visits ending 07/24/17. Denies chest pain. Pt reports continued mild/stable SOB with exertion. No shortness of breath at rest. No orthopnea. No PNDs. Has stable 1-2+ BLE edema. No dizziness. No syncope or near syncope. Tolerating medications without difficulty. Pt reports increased activity with no exercise. He quit smoking in 03/2017 after his IN. Had chest pain in hospital 03/2017 found to have STEMI and atrial fibrillation with rapid ventricular response. EKG showed Q wave in anterior leads and [address] elevation in lead 3. EF was SEVERELY elevated POST IN at 35% with apical and intra-apical hypokinesis. [...] abnormal ekg EK05/05/19 Normal sinus rhythm. Inferior IN, age undertemined. Inverted T waves, anterior leads. [...] correlated with symptoms. EKG 01/28/18: NSR. Inferior IN, age undetermined. Poor R progression in chest [...] pump is in satisfactory position. Mild cardiomegaly. C: 03/31/17 : 3-vessel coronary artery disease. Anomalous circ, left femoral RCA cusp. Severe left ventricular diastolic dysfunction. Status post recent myocardial infarction. Mega [place], [place] - [facility] 05/19/2019 17:11:04 07/28/2019 text/html 07/28/19 CC: Dyspnea 43 year-old white man with a PMH of CAD s/p IN (03/24/17) and CABG 4 v. (03/26/17, Mem. [...] He quit smoking in 03/2017 after his IN. Reports home BP 130/68. Had chest pain in hospital 03/2017 found to have STEMI and atrial fibrillation with rapid ventricular response. EKG showed Q wave in anterior leads and [address] elevation in lead 3. EF was SEVERELY elevated POST IN at 35% with apical and intra-apical hypokinesis. [...] abnormal ekg EK05/05/19 Normal sinus rhythm. Inferior IN, age undertemined. Inverted T waves, anterior leads. [...] correlated with symptoms. EKG 01/28/18: NSR. Inferior IN, age undetermined. Poor R progression in chest [...] pump is in satisfactory position. Mild cardiomegaly. [facility]: 03/31/17 : 3-vessel coronary artery disease. Anomalous circ, left femoral RCA cusp. Severe left ventricular diastolic dysfunction. Status post recent myocardial infarction. Mega Benson [place] - [facility] 07/28/2019 18:00:53 01/05/2020 text/html 01/05/20 CC: Dyspnea 44 year-old white man with a PMH of CAD s/p IN (03/24/17) and CABG 4 v. (03/26/17, Mem. [...] He quit smoking in 03/2017 after his IN. Reports home BP 125-117/75-82. Had chest pain in hospital 03/2017 found to have STEMI and atrial fibrillation with rapid ventricular response. EKG showed Q wave in anterior leads and [address] elevation in lead 3. EF was SEVERELY elevated POST IN at 35% with apical and intra-apical hypokinesis. [...] abnormal ekg EK05/05/19 Normal sinus rhythm. Inferior IN, age undertemined. Inverted T waves, anterior leads. [...] correlated with symptoms. EKG 01/28/18: NSR. Inferior IN, age undetermined. Poor R progression in chest [...] pump is in satisfactory position. Mild cardiomegaly. [facility]: 03/31/17 : 3-vessel coronary artery disease. Anomalous circ, left femoral RCA cusp. Severe left ventricular diastolic dysfunction. Status post recent myocardial infarction. Mega greco, [place] - [facility] 01/05/2020 17:58:04
--- OUTSIDE RECORDS SUMMARY | 2025-05-25 11:41 | XMS_ITS | Encounter Summary ---
Author Organization [facility] Address [address] [place] [address] Care Team Providers Care Building Contractor Name Role Phone Geovanni Meyer MD Primary Care Provider [phone] Sugar Patterson MD Unavailable El Tariq MD Unavailable [phone] Barbara Flowers MD Unavailable [phone] Tony Jimenez PA-C Unavailable [phone] Reason for Visit * Reason Onset Date Comments Concerns 05/25/2025 Encounter Details Date Type Department Care Team (Late st Contact Info) Description 05/25/2025 [facility] [address] [place] [address] Barbara Flowers MD [address] [facility] [address] [address] Concerns Social History Tobacco Use Types Packs/Day Years Used Date Smoking Tobacco: Former Smokeless Tobacco: Never Snuff Alcohol Use Standard Drinks/Week Comments Yes 0 (1 standard drink = 0.6 oz pur e alcohol) 5-10 drinks per week [facility] Utilities Answer Date Recorded In the past 12 months has e electric, gas, oil, or water [employer] threatened to shut off services in your home? No 05/12/2025 Humiliation, Afraid, Rape, and Kick questionnair e Answer Date Recorded Within the last year, have y ou been afraid of your partner or ex-partner? No 05/12/2025 Within the last year, have y ou been humiliated or emotionally abused in other ways by your partner or ex-partner? No Within the last year, have y ou been kicked, hit, slapped, or otherwise physically hurt by your partner or ex-partner? No 05/12/2025 Within the last year, have y ou been raped or forced to have any kind of sexual activity by your partner or ex-partner? No 05/12/2025 Overall Financial Resource Strain (CARDIA) Answe r Date Recorded How hard is it for you to pa y for the very basics like food, housing, medical care, and heating? Not hard at all 05/12/2025 Hunger Vital Sign Answer Date Recorded Within the past 12 months, y ou worried that your food would run out before you got the money to buy more. Never true 05/12/20 25 Within the past 12 months, t he food you bought just didn't last and you didn't have money to get more. Never true 05/12/2025 PRAPARE - Transportation Answer Date Re corded In the past 12 months, has l ack of transportation kept you from medical appointments or from getting medications? No 04/18 In the past 12 months, has l ack of transportation kept you from meetings, work, or from getting things needed for daily living? No 05/12/2025 Housing Stability Vital Sign Answer Sukumar e [...] place to sleep or slept in a mcfp (including now)? No 11/17/2023 Housing Stability Vital Sign Answer Sukumar e Recorded In the last 12 months, was t here a time when you were not able to pay the mortgage or rent on time? No 05/12/2025 In the past 12 months, how m any times have you moved where you were living? 0 05/12/2025 At any time in the past 12 m onths, were you homeless or living in a mcfp (including now)? 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 Answer Date of Assessment Author Status No 05/12/2025 8:13 PM CDT Luis Eduardo Dahl RN Active * Do you have serious difficulty walking or climbing stairs? Answer Date of Assessment Author Status No 05/12/2025 8:13 PM CDT Luis Eduardo Dahl RN Active * Do you have difficulty dressing or bathing? Answer Date of Assessment Author Status No 05/12/2025 8:13 PM CDT Luis Eduardo Dahl RN Active * Because of a physical, mental, or emotional condition, do you have difficulty doing errands alone such as visiting a doctor's office or shopping? Answer Date of Assessment Author Status No 05/12/2025 8:13 PM CDT Luis Eduardo Dahl RN Active documented as of this encounter Mental Status * Because of a physical, mental, or emotional condition, do you have serious difficulty concentrating, remembering, or making decisions? Answer Entry Date Author Status No 05/12/2025 8:13 PM CDT Luis Eduardo Dahl RN Active documented in this encounter Progress Notes * Linda Sanders - 05/25/2025 9:10 AM CDT Pt calling with concerns of fatigue since ablation on 05/12/25. He is not sure if related to that ormed change to Pradaxa. He has appt this morning with pcp at 10:45. He reports no other symptoms and has not taken BP or HR documented in this encounter Plan of Treatment Upcoming Encounters Date Type Department Care Team (Latest Contact Info) Description 06/10/2025 9:30 AM CDT Office Visit [facility] [address] [place] [address] Tony Jimenez PA-C [address] [place] [phone] 06/10/2025 9:30 AM CDT Allied Health/Nurse Visit [facility] [address] [place] [phone] Barbara Flowers MD [address] [place] [address] [phone] 06/23/2025 1:00 AM CDT Allied Health/Nurse Visit [facility] [address] [place] [phone] Barbara Flowers MD [address] [place] [phone] 07/20/2025 1:30 PM CDT [facility] [address] [address] Sugar Patterson MD [address] [place] [address] [phone] 07/25/2025 1:30 PM CDT Office Visit [facility] [place] [phone] Sugar Patterson MD [address] [place] [address] [phone] documented as of this encounter Goals Goal Patient Goal Type Associated Problems Recent Progress Patient-Stated? Author Patient will return to prior living situation and remain independent in ADLs upon discharge from hospital Lifestyle No Michelle Self, RN documented as of this encounter Visit Diagnoses Not on filedocumented in this encounter Care Teams Building Contractor Relationship Specialty Start Date End Date Geovanni Meyer MD [address] [place], [place] [phone] PCP - General FAMILY PRACTICE 08/06/21 Sugar Patterson MD [address] [place] [address] [employer] CARDIOVASCULAR DISEASE 10/31/21 El Tariq MD [address] [place] [address] Vascular/Cardiologis t INTERVENTIONAL CARDIOLOGY 12/14/21 Barbara Flowers MD [address] [place] [address] [phone] Consulting Physician Electrophysiology 11/19/23 Tony Jimenez PA-C [address] [place] [phone] PHYSICIAN MARBLEIZER 11/19/23 documented as of this encounter
--- OUTSIDE RECORDS SUMMARY | 2025-05-25 11:41 | XMS_ITS | Clinical Summary ---
Author Organization [facility] Address [address] [place] [id number] Care Team Providers Care Mainframe Systems Administrator Name Role Phone Geovanni Meyer MD Primary Care Provider [phone] Sugar Patterson MD Unavailable El Tariq MD Unavailable [phone] Barbara Flowers MD Unavailable [phone] Tony Jimenez PA-C Unavailable [phone] Allergies No known active allergies Medications rosuvastatin 40 MG tablet Take 1 tablet (40 mg total) by mouth nightly at bedtime. 09/18/20 21 Active aspirin EC 81 MG tablet Take 1 tablet (81 mg total) by mouth daily. Active COMPRESSION STOCKINGS B/l knee high 15-20mmhg 1 Container 2 03/06/20 22 Active Additional Information Patient taking differently: 1 Application Does not apply See admin instructions, B/l knee [id number], Reported on 05/12/2025 spironolactone (ALDACTONE) 25 MG tablet Take 1 tablet (25 mg total) by mouth daily. 90 tablet 3 06/10/20 24 Active ENTRESTO 24-26 MG tablet take 1 tablet by mouth twice daily 180 tablet 3 08/31/20 24 Active carvedilol (COREG) 25 MG tabletIndicatio ns:Ventricular fibrillation (CMS/HCC HHS/HCC) Take 1.5 tablets (37.5 mg total) by mouth 2 (two) times daily. 270 tablet 1 12/15/19 25 Active sildenafil (REVATIO) 20 MG tablet Take 1 tablet (20 mg total) by mouth see administration instructions. 02/26/20 25 Active amiodarone (PACERONE) 200 MG tablet Take 1 tablet (200 mg total) by mouth daily. 90 tablet 1 03/17/20 25 Active dabigatran (PRADAXA) 150 MG CapIndications: Post VT ablation stroke prophylaxis for 30 days. Take 1 capsule (150 mg total) by mouth 2 (two) times daily. Indications: Post VT ablation stroke prophylaxis for 30 days. 60 capsule 3 05/13/20 25 Active BRILINTA 60 MG tablet Take 1 tablet (60 mg total) by mouth 2 (two) times daily. 09/16/20 025 Discontin ued(Stop Taking at Discharge ) Active Problems Problem Noted Date Diagnosed Date Status post ablation of ventricular arrhythmia 0 05/13/2025 Premature ventricular contractions (PVCs) (VPCs) 05/13/2025 Sustained ventricular tachycardia ([facility]/H CC) 01/16/2025 High risk medication use 12/25/2023 LBBB (left bundle branch block) 12/25/2023 Biventricular ICD (implantab le cardioverter-defibrillator) in place 11/19/2023 Ischemic cardiomyopathy 11/19/2023 Ventricular fibrillation ([facility]) 11/17 Iliac artery stenosis, left 03/07/2022 Venous ulcer ([facility]/HCC) 01/02/2022 Bilateral edema of lower extremity 10/25/2021 PAD (peripheral artery disease) 10/25/2021 Hyperglycemia 10/25/2021 Open wound of left lower leg 10/25/2021 Body mass index 40.0-44.9, adult 10/25/2021 Absent pedal pulses 10/25/2021 Hyperlipidemia 04/29/2017 Coronary arteriosclerosis 04/26/2017 Hx of CABG 03/26/2017 Overview (10/25/2021): 4 vessel Resolved Problems Problem Noted Date Diagnosed Date Resolved Date Cardiac arrest with ventricu lar fibrillation ([facility]/HCC) 11/17/2023 11/19/2023 Encounters Date Type Department Care Team Description 05/25/2025 Telephone [facility] [address] [place] [address] Barbara Flowers MD Concerns 05/12/2025 1:53 PM CDT Anesthesia Event [facility] Control Specialist [address] [place] [address] Mega Barreto II, MD Coonrod, Sheila A, RN 05/12/2025 9:25 AM CDT - 05/13/2025 11:02 AM CDT Hospital Encounter [facility] [address] [place] [address] Barbara Flowers MD Shafiei, Fourutan Tim, MD Discharge Disposition: Home or Self Care (Routine Discharge) 05/11/2025 1:43 PM CDT - 05/11/2025 11:59 PM CDT Hospital Encounter [facility] [address] [place] [address] Barbara Flowers MD Discharge Disposition: Home or Self Care (Routine Discharge) 05/11/2025 1:23 PM CDT - 05/11/2025 1:42 PM CDT Hospital Encounter [facility] [address] [place] [address] Barbara Flowers MD Discharge Disposition: Home or Self Care (Routine Discharge) 05/11/2025 1:00 PM CDT Office Visit [facility] [address] [place] [address] Ishmael Garcia NP Follow Up (Scheduled for VT ablation on 05/12/[address] Flowers) 05/11/2025 Travel 05/10/2025 Orders Only [facility] [address] [place] [address] Saulo Qureshi MD 04/12/2025 Prep for Procedure [facility] Control Specialist Pre/Post [address] [place] [address] Barbara Flowers MD 04/12/2025 Telephone [facility] [address] [place] [address] Barbara Flowers MD Schedule Procedure 04/04/2025 Telephone [facility] [address] [place] [address] Barbara Flowers MD Question 03/17/2025 2:00 PM CDT Allied Health/Nurse Visit [facility] [address] [place] [address] Barbara Flowers MD In Clinic Device Check 03/17/2025 2:00 PM CDT Office Visit [facility] [address] [place] [address] Tony Jimenez PA-C Follow Up 03/17/2025 Travel 03/10/2025 Orders Only [facility] [address] [place] [address] Barbara Flowers MD 03/01/2025 Abstract [facility] [address] [place] [address] Abstract, Doc Pccl 02/28/2025 Telephone [facility] [address] [place] [address] Sugar Patterson MD Results 02/23/2025 Scan [facility] [address] [place] [address] Scanned, Doc Pccl Ultrasound (SCAN) from Last 3 Months Family History Medical History Relation Comments Heart Attack Father Open Heart Father Heart Attack Paternal Grandmother Relation Status Comments Father Maternal Grandfather Maternal Grandmother Paternal Grandfather Paternal Grandmother Social History Tobacco Use Types Packs/Day Years Used Date Smoking Tobacco: Former Smokeless Tobacco: Never Snuff Tobacco Cessation:Counseling Given: Not Answered Alcohol Use Standard Drinks/Week Comments Yes 0 (1 standard drink = 0.6 oz pur e alcohol) 5-10 drinks per week [facility] Utilities Answer Date Recorded In the past 12 months has th e [employer], gas, oil, or water company threatened to shut off services in your [...] any time in the past 12 m [facility], were you homeless or living in a mcfp (including now)? 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 Not on file Not on file Last Filed Vital Signs Vital Sign Reading Time Taken Comments Blood Pressure 147/92 05/13/2025 8:00 AM CDT Pulse 70 05/13/2025 8:00 AM CDT Temperature 36.5 C (97.7 F) 05/13/2025 8:00 AM CDT Respiratory Rate 17 05/13/2025 8:00 AM CDT Oxygen Saturation 94% 05/13/2025 8:00 AM CDT Inhaled Oxygen Concentration - - Weight 168.4 kg (371 lb 4.1 oz) 05/13/2025 5:00 AM CDT Height 193 cm (6' 3.98) 05/12/2025 9:36 AM CDT Body Mass Index 45.21 05/12/2025 9:36 AM CDT Plan of Treatment Upcoming Encounters Date Type Department Care Team (Latest Contact Info) Description 06/10/2025 9:30 AM CDT Office Visit [facility] [address] [place] [phone] Tony Jimenez PA-C [address] [place] [address] 06/10/2025 9:30 AM CDT Allied Health/Nurse Visit [facility] [address] [place] [address] Barbara Flowers MD [address] [address] 06/23/2025 1:00 AM CDT Allied Health/Nurse Visit [facility] [address] [place] [address] Barbara Flowers MD [address] [address] 07/20/2025 1:30 PM CDT Appointment [facility] [address] [facility] [place] [address] Sugar Patterson MD [address] [place] [address] 07/25/2025 1:30 PM CDT [facility] [address] [place] [phone] Sugar Patterson MD [address] [place] [address] Health Maintenance Due Date Last Done Comments ASCVD Statin 1975 Colorectal Cancer Screening Colonoscopy (10 Years) 1973 Annual Physical 1976 Hepatitis C 1991 DTaP, Tdap and Td Vaccines ( 1 - Tdap) 1992 Hepatitis B Vaccines (1 of 3 - 19+ 3-dose series) 1992 Pneumococcal Vaccine: 50+ Years (1 of 2 - PCV) 1992 Zoster Vaccines (1 of 2) 2023 ASCVD LDL 04/21/2024 04/21/2023 COVID-19 Vaccine (3 - 2023-2 5 season) 2024 10/25/2021, 01/18/2021 [...] Self RN Medical Devices Implanted Type Area Reuse Technician Device Identifier Shelf Expiration Date Model / Serial / Lot Medtronic [place] Xt Hf Quad Bi-V-11/18/2023 Implanted:Qty: 1 on 11/18/2023 by Barbara Flowers MD ICD [employer] 02/28/2025 [id number] / [id number] / Description:DX: VF Medtronic Cslv-11/18/2023 Implanted:Qty: 1 on 11/18/2023 by Barbara Flowers MD Lead Implant [employer] 07/23/2025 [id number] / [id number] / Medtronic Ra-11/18/2023 Implanted:Qty: 1 on 11/18/2023 by Barbara Flowers MD Lead Implant [employer] 07/07/2025 [id number] / [id number] / Medtronic Rv-11/18/2023 Implanted:Qty: 1 on 11/18/2023 by Barbara Flowers MD Lead Implant [employer] 04/16/2025 [id number] / [id number] / Procedures Procedure Name Priority Date/Time Associated Diagnosis Comments ECG 12-LEAD Routine 05/13/2025 6:28 AM CDT Sustained ventricular tachycardia (CMS/HCC HHS/HCC) MAGNESIUM Routine 05/13/2025 5:55 AM CDT Sustained ventricular tachycardia (CMS/HCC HHS/HCC) BASIC METABOLIC PANEL Routine 05/13/2025 5:55 AM CDT Sustained ventricular tachycardia (CMS/HCC HHS/HCC) PROTHROMBIN TIME, VENOUS Routine 025 5:55 AM CDT Sustained ventricular tachycardia (CMS/HCC HHS/HCC) CBC W/DIFF AUTOMATED Routine 05/13/2025 5:55 AM CDT Sustained ventricular tachycardia (CMS/HCC HHS/HCC) ECG 12-LEAD Routine 05/12/2025 7:52 PM CDT Sustained ventricular tachycardia (CMS/HCC HHS/HCC) XA VT ABLATION Routine 05/12/2025 6:28 PM CDT Sustained ventricular tachycardia (CMS/HCC HHS/HCC) POCT ACTIVATED CLOTTING TIME - ISTAT DOCKED DEVICE Routine 05/12/2025 6:12 PM CDT POCT ACTIVATED CLOTTING TIME - ISTAT DOCKED DEVICE Routine 05/12/2025 5:51 PM CDT POCT ACTIVATED CLOTTING TIME - ISTAT DOCKED DEVICE Routine 05/12/2025 5:23 PM CDT POCT ACTIVATED CLOTTING TIME - ISTAT DOCKED DEVICE Routine 05/12/2025 5:05 PM CDT POCT ACTIVATED CLOTTING TIME - ISTAT DOCKED DEVICE Routine 05/12/2025 4:48 PM CDT POCT ACTIVATED CLOTTING TIME - ISTAT DOCKED DEVICE Routine 05/12/2025 4:30 PM CDT POCT ACTIVATED CLOTTING TIME - ISTAT DOCKED DEVICE Routine 05/12/2025 4:02 PM CDT POCT ACTIVATED CLOTTING TIME - ISTAT DOCKED DEVICE Routine 05/12/2025 3:42 PM CDT POCT ACTIVATED CLOTTING TIME - ISTAT DOCKED DEVICE Routine 05/12/2025 3:24 PM CDT POCT ACTIVATED CLOTTING TIME - ISTAT DOCKED DEVICE Routine 05/12/2025 3:05 PM CDT ART LINE PLACEMENT Routine 05/12/2025 2: 18 PM CDT ECG 12-LEAD Routine 05/12/2025 9:52 AM CDT ORDER FRESH FROZEN PLASMA Routine 05/12/2025 9:29 AM CDT CTA HEART W 3D IMAGING Routine 2:40 PM CDT Sustained ventricular tachycardia (CMS/HCC HHS/HCC) TYPE & SCREEN Routine 05/11/2025 1:32 PM CDT Sustained ventricular tachycardia (CMS/HCC HHS/HCC) CBC W/DIFF AUTOMATED Routine 05/11/2025 1:32 PM CDT Sustained ventricular tachycardia (CMS/HCC HHS/HCC) COMPREHENSIVE METABOLIC PANEL Routine 05/11/2025 1:32 PM CDT Sustained ventricular tachycardia (CMS/HCC HHS/HCC) ELECTROCARDIOGRAM (NON MIDMARK ACQUIRED) Routine 05/11/2025 12:55 PM CDT Biventricular ICD (implantable cardioverter-defibr illator) in place Sustained ventricular tachycardia (CMS/HCC HHS/HCC) Ventricular fibrillation (CMS/HCC HHS/HCC) ELECTROCARDIOGRAM (NON MIDMARK ACQUIRED) Routine 03/17/2025 2:04 PM CDT Biventricular ICD (implantable cardioverter-defibr illator) in place Ventricular fibrillation (CMS/HCC HHS/HCC) ULTRASOUND GENERIC (SCAN ORDER) Routine 02/23/2025 12:00 AM CDT LIPID PANEL Routine 04/21/2023 from Last 3 Months or Most Recently Relevant to Health Maintenance Results * ECG 12 lead - in AM (05/13/2025 6:28 AM CDT) Only the most recent of3 resultswithin the time period is included. 05/13/2025 6:28 AM CDT Narrative [facility] - 05/13/2025 3:46 PM CDT [facility] [address] [place] [address] Test Date: 2025-05-13 Pat [facility] Department: 1 Room: 60A Gender: Male Bill Sorter: Trent : 1975 Requested By: BARBARA FLOWERS Order Number: [id number] Reading MD: Pam Foss Measurements Intervals [place] Rate: 72 P: -57 AL: 170 QRS: 249 QRSD: 193 T: 91 QT: 501 QTc: 552 Interpretive Statements ELECTRONIC ATRIAL PACEMAKER ELECTRONIC VENTRICULAR PACEMAKER ABNORMAL ECG Procedure Note Pam Foss MD - 05/13/2025 [place] [address] [place] [address] Test Date: 2025-05-13 Pat Name: [facility] Department: 1 Room: 604AA Gender: Male Bill Sorter: Trent : 1975 Requested By: BARBARA FLOWERS Order Number: [id number] Reading MD: Pam Foss Measurements Intervals [place] Rate: 72 P: -57 AL: 170 QRS: 249 QRSD: 193 T: 91 QT: 501 QTc: 552 Interpretive Statements ELECTRONIC ATRIAL PACEMAKER ELECTRONIC VENTRICULAR PACEMAKER ABNORMAL ECG us Barbara Flowers MD ECG ORDERABLES Final Re sult [facility] * (ABNORMAL) PROTIME/INR, VENOUS (05/13/2025 5:55 AM CDT) PROTIME 12.8(H) 9.4 - 12.5 SEC 05/13/2025 6:26 AM CDT [facility] INR 1.1 0.8 - 1.1 05/13/2025 6:26 AM CDT [facility] 05/13/2025 5:55 AM CDT Barbara Flowers MD LABORATORY Final Re sult [facility] [address] [place] [address], [id number] * (ABNORMAL) BASIC METABOLIC PANEL (05/13/2025 5:55 AM CDT) SODIUM S/P/B 136 136 - 145 MMOL/L 05/13/2025 6:32 AM CDT [facility] POTASSIUM S/P/B 4.4 3.5 - 5.1 MMOL/L 05/13/2025 6:32 AM CDT [facility] CHLORIDE S/P/B 106 97 - 115 MMOL/L 05/13/2025 6:32 AM CDT [facility] CO2 26.7 21.0 - 32.0 MMOL/L 05/13/2025 6:32 AM CDT [facility] GLUCOSE 137(H) 74 - 106 MG/DL 05/13/2025 6:32 AM CDT [facility] BUN 16 7 - 18 MG/DL 05/13/2025 6:32 AM CDT [facility] CREATININE S/P/B 1.15 0.70 - 1.30 MG/DL 05/13/2025 6:32 AM CDT [facility] CALCIUM S/P/B 9.2 8.5 - 10.1 MG/DL 05/13/2025 6:32 AM CDT [facility] ANION GAP 3.3 2.0 - 10.0 MMOL/L 05/13/2025 6:32 AM CDT [facility] OSMOLALITY (CALC) 285 MOSM/KG 2 025 6:32 AM CDT [facility] Comment:REFERENCE RANGE NOT ESTABLISHED GFR ESTIMATE 77(L) >90 ML/MIN/1. 73 M2 05/13/2025 6:32 AM CDT [facility] GFR NOTES GFR REFERENCE S: 05/13/2025 6:32 AM CDT [facility] Comment: THE ESTIMATED GFR [...] ml/min/1.73 m2 G5,KIDNEY FAILURE: <15 ml/min/1.73 m2 05/13/2025 5:55 AM CDT Barbara Flowers MD LABORATORY Final Re sult [facility] [address] [place] [address], [phone] * (ABNORMAL) CBC W/DIFF AUTOMATED (05/13/2025 5:55 AM CDT) Only the most recent of2 resultswithin the time period is included. WBC 9.05 4.00 - 10.80 x10'3/uL 05/13/2025 6:11 AM CDT [facility] RBC 4.56 4.50 - 6.10 x10'6/uL 05/13/2025 6:11 AM CDT [facility] HGB 13.9 13.0 - 18.0 G/DL 05/13/2025 6:11 AM CDT [facility] HCT 43.4 37.0 - 52.0 % 05/13/2025 6:11 AM CDT [facility] MCV 95.2 78.0 - 100.0 FL 05/13/2025 6:11 AM CDT [facility] MCH 30.5 27.0 - 31.0 PG 05/13/2025 6:11 AM CDT [facility] MCHC 32.0(L) 33.0 - 36.0 G/DL 05/13/2025 6:11 AM CDT [facility] RDW 13.0 11.5 - 14.5 % 05/13/2025 6:11 AM CDT [facility] PLT 151 150 - 350 x10'3/uL 05/13/2025 6:11 AM CDT [facility] MPV 10.2 7.4 - 10.4 FL 05/13/2025 6:11 AM CDT [facility] DIFFERENTIAL TYPE AUTOMATED DIFFERENTIAL 05/13/2025 6:11 AM CDT [facility] SEG NEUTROPHILS 84.1 % 6:11 AM CDT [facility] LYMPHOCYTES 9.7 % 05/13/2025 6:11 AM CDT [facility] MONOCYTES 5.7 % 05/13/2025 6:11 AM CDT [facility] EOSINOPHILS 0.0 % 05/13/2025 6:11 AM CDT [facility] BASOPHILS 0.2 % 05/13/2025 6:11 AM CDT [facility] IMMATURE GRANS % 0.3 % 05/13/20 6:11 AM CDT [facility] ABS. NEUTROPHILS 7.60 1.60 - 8.30 x10'3/uL 05/13/2025 6:11 AM CDT [facility] ABS. LYMPHOCYTES 0.88 0.80 - 4.70 x10'3/uL 05/13/2025 6:11 AM CDT [facility] ABS. MONOCYTES 0.52 0.00 - 1.50 x10'3/uL 05/13/2025 6:11 AM CDT [facility] ABS. EOSINOPHILS 0.00 0.00 - 0.40 x10'3/uL 05/13/2025 6:11 AM CDT [facility] ABS. BASOPHILS 0.02 0.00 - 0.20 x10'3/uL 05/13/2025 6:11 AM CDT [facility] ABS. IMMATURE GRANULOCYTES 0.03 0.00 - 0.03 x10'3/uL 05/13/2025 6:11 AM CDT [facility] ABS. NUCLEATED RBC'S 0.00 0.00 - 0.01 x10'3/uL 05/13/2025 6:11 AM CDT [facility] NRBC % 0.0 % 05/13/2025 6:11 AM CDT [facility] 05/13/2025 5:55 AM CDT Barbara Flowers MD LABORATORY Final Re sult [facility] [address] [place] [address], [phone] * MAGNESIUM (05/13/2025 5:55 AM CDT) MAGNESIUM 2.0 1.6 - 2.6 MG/DL 05/13/2025 6:32 AM CDT [facility] 05/13/2025 5:55 AM CDT us Barbara Flowers MD LABORATORY Final Re sult Performing Organization Address City/[facility]/ZIP Co de Phone Number [facility] [address] [place] [address], [place] [phone] * XA VT ABLATION (05/12/2025 6:28 PM CDT) Anatomical Region Laterality Modality Cardiac Control Specialist Narrative 05/12/2025 6:52 PM CDT Barbara Flowers MD 05/12/2025 8:01 PM ELECTROPHYSIOLOGY PROCEDURE REPORT PATIENT NAME: Saulo Heredia : 1975 PERFORMING STAFF: Barbara Flowers MD PROCEDURE DATE: 05/12/25 INDICATIONS: Sustained monomorphic ventricular tachycardia, history of ischemic cardiomyopathy. PROCEDURES PERFORMED: Ventricular tachycardia ablation, Intracardiac echocardiography, transseptal puncture, ICD interrogation and reprogramming DC Cardioversion x 2. Anesthesia: General The patient arrived to the electrophysiology laboratory in a fasting state. Written informed consent was obtained from the patient after a full explanation of the risks and benefits of the procedure. Continuous electrocardiographic and hemodynamic monitoring was initiated. The patient was anesthetized and intubated by the Department of Anesthesiology. The patient s existing ICD device was reprogrammed to disable tachytheapies. Patient presented to EP lab in sinus rhythm. Access Using modified Seldinger technique and ultrasound guidance, 2 sheaths were placed in the right femoral vein. ICE catheter was advanced via the 9 Fr sheath and positioned in RA. There was no evidence of pericardial effusion at baseline on ICE views. Transseptal puncture After initiating a heparin bolus and drip to achieve an ACT > 300 sec, a single transseptal puncture was performed using ICE and fluoroscopic guidance. The 8 Fr right femoral vein sheath was exchanged for a large curl Agilis deflectable sheath, advanced to the RA and a transseptal puncture was performed using a Socset. VersaCross RF wire. Mapping and ablation The [employer] Ensite X electroanatomical mapping system was used to define left ventricular geometry. No VT induction was attempted at baseline. The [employer] HD Grid X multielectrode-mapping catheter was advanced through the Agilis sheath into the left ventricle. A bipolar and unipolar voltage map of the left ventricle was created that demonstrated area of scar along the mid inferoseptal aspect of left ventricle. Areas of fractionation, late and purkinje potentials were marked. An isochronal late activation map was created in sinus rhythm. The patient did have spontaneous induction of sustained ventricular tachycardia during mapping. Each time the ventricular tachycardia was induced while the mapping catheter was being manipulated in one of the areas that demonstrated bunching of isochrones on the ILAM map. The patient had to be cardioverted both times using a 360 J, external, direct-current shock as the patient was unable to hemodynamically tolerate sustained ventricular tachycardia. VT-1: TCL 270 ms, Morphology: Left bundle, V5 transition, I/AVL positive, II/III/AVF biphasic. VT-2: TCL 320 ms, Morphology: Left bundle, V3 transition, I/AVL positive, II/III/AVF positive, Next, the HD Grid multielectrode-mapping catheter was exchanged for an Uepaa bidirectional irrigated force sensing ablation catheter; and was advanced through the 8.5 Fr long curl Agilissheath into the left ventricle. Radiofrequency ablation was then performed along the inferoseptal aspect of the LV to homogenize the scar and to target areas of isochronal bunching. All areas of fractionated signals in the yvette-scar region were ablated. A total of 75 radiofrequency applications were delivered using an rSmart flex irrigated tip for sensing radiofrequency ablation catheter at outputs of 50 W. After ablation was complete, the ablation catheter was withdrawn into the IVC. End Procedure Intracardiac echo confirmed no pericardial effusion at the end of the case. Protamine was given and the catheters and venous sheaths were removed. Hemostasis was achieved using manual pressure. Anesthesia was reversed and the patient was extubated. Estimated blood loss was minimal. The patient was transported to the holding area in stable condition. Device interrogation was performed post procedure and tachy therapies were enabled. The device was also reprogrammed back to baseline settings. No complications occurred. The performed staff performed the entire procedure. Conclusion: - Successful substrate based ablation of scar mediated Ventricular Tachycardia originating from the mid inferoseptal left ventricle - Intracardiac echo did demonstrate an echo density on the right atrial pacemaker lead that remained unchanged at the end of the case (Images were saved) Recommendations: - Given specifics of case, patient will be kept overnight for close observation. Anticipate discharge tomorrow. - Routine post-procedural care; bedrest for 4 Hours. - Resume home medications. - Start Pradaxa 150 mg BID. We will continue this for 3 months due to echo density on the right atrial pacemaker lead and plan to perform Transesophageal echocardiogram after 3 months to reassess the lead. - Continue Amiodarone 200 mg daily. We will discontinue this on 07/24/25 after the patient return from his [place] vacation. - Resume patient's diet and previous meds - Follow in clinic in 4 weeks Barbara Flowers MD Physician Cardiac Electrophysiology Barbara Flowers MD CONTRACT DRIVER Final Re sult * (ABNORMAL) POCT ACTIVATED CLOTTING TIME - ISTAT DOCKED DEVICE (05/12/2025 6:12 PM CDT) Only the most recent of10 resultswithin the time period is included. ACTIVATED CLOTTING TIME (ACT HMT OR LMT) 343(H) 74 - 137 SEC 05/13/2025 6:23 AM CDT [facility] 05/12/2025 6:12 PM CDT Barbara Flowers MD POCT ORDERABLES - DEVICE Final Result [facility] [address] [place] [address], [id number] * Art Line (05/12/2025 2:18 PM CDT) Narrative Dulce Schneider CRNA - 05/12/2025 2:18 PM CDT Dulce Schneider CRNA 05/12/2025 2:22 PM Art Line Date/Time: 05/12/2025 2:18 PM Performed by: Dulce Schneider CRNA Authorized by: Dany Hines MD Patient Location: Control Specialist Placed Outside of This Facility?: No Size: 5 Orientation: Right Location: Radial Site Prep: Chlorhexadine Local Anesthetic: None Insertion Attempts: 1 Ultrasound-guided Placement: Yes Ultrasound was used to identify the vessel. It was assessed and patent. Ultrasound was used to visualized vascular needle entry into the vessel and The selected vessel appeared anatomically normal and there were no apparent abnormal findings Secure Method: Taped Dany Hines MD AL ANESTHESIA Final Re sult * ORDER FRESH FROZEN PLASMA, 4 Units (05/12/2025 9:29 AM CDT) UNITS ORDERED 4 05/12/2025 9:29 AM CDT [facility] 05/12/2025 9:29 AM CDT us Barbara Flowers MD BLOOD BANK PRODUCT ORDER HUMBERTO Final Result [facility] [address] [place] [address], [place] [phone] * CTA HEART W 3D IMAGING (05/11/2025 2:40 PM CDT) Anatomical Region Laterality Modality Cardiac Computed Tomogra phy 05/13/2025 4:01 PM CDT Impressions 05/13/2025 4:13 PM CDT IMPRESSION: 1. Normal pulmonary venous anatomy. 2. No evidence for pulmonary vein stenosis. 3. No left atrial or appendage thrombus. 4. Moderate left atrial chamber enlargement. 5. Left ventricular chamber enlargement. 6. Coronary artery disease. CABG. 7. Pulmonary hypertension. Ordered By: BARBARA FLOWERS Interpreted By: Nico Whyte MD, 05/13/2025 4:01 PM Narrative 05/13/2025 4:13 PM CDT [facility] [address] [place], [place] [address] EXAMINATION: CARDIAC COMPUTED TOMOGRAPHY ANGIOGRAM, CTA PULMONARY VEINS DATE: 05/11/2025 HISTORY: 50 years-year old Male for pre-radiofrequency ablation of pulmonary vein ostia assessment. Atrial fibrillation. pulmonary vein mapping, rule out RASHAWN and LV thrombus prior to ablation. Ventricular tachycardia, unspecified (CMS/HCC HHS/HCC) COMPARISON: None. TECHNIQUE: Multidetector computerized tomography coronary angiogram was obtained using no ECG gating after the administration of 80 mL of Isovue-370 intravenous contrast at 5 mL/sec with 50 mL saline push according to CTA pulmonary vein ablation protocol. In order to provide better evaluation of the anatomy and disease process, advanced off-line 3-D post processing techniques, including 3-D volume rendered images were performed at separate dedicated independent 3-D workstation. A dose lowering technique was used for this procedure, which may include, but is not limited to, dose reduction technique, automated exposure control, the use of iterative reconstruction, and ALARA (As Low As Reasonably Achievable) / Image Gently techniques. Procedure Complications/Allergic Reactions: None. Examination Quality: The overall quality of the examination is fair, limited by cardiac motion. FINDINGS: PULMONARY VEINS: Pulmonary vein anatomy: A total of 4 pulmonary veins entering the left atrium; 2 right pulmonary veins and 2 left pulmonary veins. No evidence for pulmonary vein stenosis. Bidirectional measurements of the pulmonary veins are as follows: 1. Right superior: 18 x 17 mm 2. Right inferior: 21 x 19 mm 3. Left superior: 20 x 13 mm 4. Left inferior: 19 x 9 mm ESOPHAGUS: Abuts posterior left atrium. LEFT ATRIUM: The left atrium is moderately enlarged and is normally opacified. The left atrial appendage is normally opacified. OTHER CARDIAC FINDINGS: Coronary origins are normal. Coronary artery disease. Coronary artery bypass grafts. Beyond this, coronary assessment was not possible. Left ventricular chamber enlargement. No large defect in the septum of atrium or ventricle. Normal pericardium. No significant pericardial effusion. EXTRACARDIAC FINDINGS: Calcified granuloma. Dependent atelectasis. Atherosclerotic thoracic aorta. Main pulmonary, 3.4 cm. Gynecomastia. Spondylosis. Sternotomy wires. Procedure Note Nico Whyte MD - 05/13/[address] [address] EXAMINATION: CARDIAC COMPUTED TOMOGRAPHY ANGIOGRAM, CTA PULMONARY VEINS DATE: 05/11/2025 HISTORY: 50 years-year old Male for pre-radiofrequency ablation ofpulmonary vein ostia assessment. Atrial fibrillation. pulmonary veinmapping, rule out RASHAWN and LV thrombus prior to ablation. Ventriculartachycardia, unspecified (CMS/HCC HHS/HCC) COMPARISON: None. TECHNIQUE: Multidetector computerized tomography coronary angiogram wasobtained using no ECG gating after the administration of 80 mL ofIsovue-370 intravenous contrast at 5 mL/sec with 50 mL saline pushaccording to CTA pulmonary vein ablation protocol. In order to providebetter evaluation of the anatomy and disease process, advanced off-line3-D post processing techniques, including 3-D volume rendered images wereperformed at separate dedicated independent 3-D workstation. A doselowering technique was used for this procedure, which may include, but isnot limited to, dose reduction technique, automated exposure control, theuse of iterative reconstruction, and ALARA (As Low As ReasonablyAchievable) / Image Gently techniques. Procedure Complications/Allergic Reactions: None. Examination Quality: The overall quality of the examination is fair,limited by cardiac motion. FINDINGS: PULMONARY VEINS: Pulmonary vein anatomy: A total of 4 pulmonary veins entering the leftatrium; 2 right pulmonary veins and 2 left pulmonary veins. No evidence for pulmonary vein stenosis. Bidirectional measurements of the pulmonary veins are as follows: 1. Right superior: 18 x 17 mm 2. Right inferior: 21 x 19 mm 3. Left superior: 20 x 13 mm 4. Left inferior: 19 x 9 mm ESOPHAGUS: Abuts posterior left atrium. LEFT ATRIUM: The left atrium is moderately enlarged and is normally opacified. The leftatrial appendage is normally opacified. OTHER CARDIAC FINDINGS: Coronary origins are normal. Coronary arterydisease. Coronary artery bypass grafts. Beyond this, coronary assessmentwas not possible. Left ventricular chamber enlargement. No large defect inthe septum of atrium or ventricle. Normal pericardium. No significantpericardial effusion. EXTRACARDIAC FINDINGS: Calcified granuloma. Dependent atelectasis.Atherosclerotic thoracic aorta. Main pulmonary, 3.4 cm. Gynecomastia.Spondylosis. Sternotomy wires. IMPRESSION: 1. Normal pulmonary venous anatomy. 2. No evidence for pulmonary vein stenosis. 3. No left atrial or appendage thrombus. 4. Moderate left atrial chamber enlargement. 5. Left ventricular chamber enlargement. 6. Coronary artery disease. CABG. 7. Pulmonary hypertension. Ordered By: BARBARA FLOWERS Interpreted By: Nico Whyte MD, 05/13/2025 4:01 PM us Barbara Flowers MD CT Final Re sult * Type & Screen ([facility] Epic Use Only) (05/11/2025 1:32 PM CDT) UNITS ORDERED 4 05/12/2025 9:32 AM CDT [facility] ABO/RH B POSITIVE 05/11/2025 2:37 PM CDT [facility] ANTIBODY SCREEN NEGATIVE 05/11/2025 2:37 PM CDT [facility] SAMPLE EXPIRATION 05/15/2025,2 359 05/11/2025 1:40 PM CDT [facility] 05/11/2025 1:32 PM CDT Barbara Flowers MD BLOOD BANK TEST ORDERABL ES Final Result [facility] [address] [place] [address], [id number] * (ABNORMAL) COMPREHENSIVE METABOLIC PANEL (05/11/2025 1:32 PM CDT) SODIUM S/P/B 138 136 - 145 MMOL/L 05/11/2025 2:14 PM CDT [facility] POTASSIUM S/P/B 4.4 3.5 - 5.1 MMOL/L 05/11/2025 2:14 PM CDT [facility] CHLORIDE S/P/B 108 97 - 115 MMOL/L 05/11/2025 2:14 PM CDT [facility] CO2 25.3 21.0 - 32.0 MMOL/L 05/11/2025 2:14 PM CDT [facility] GLUCOSE 86 74 - 106 MG/DL 05/11/2025 2:14 PM CDT [facility] BUN 21(H) 7 - 18 MG/DL 05/11/2025 2:14 PM CDT [facility] CREATININE S/P/B 1.35(H) 0.70 - 1.30 MG/DL 05/11/2025 2:14 PM CDT [facility] CALCIUM S/P/B 9.7 8.5 - 10.1 MG/DL 05/11/2025 2:14 PM CDT [facility] BILIRUBIN TOTAL S/P/B 1.2(H) 0.2 - 1.0 MG/DL 05/11/2025 2:14 PM T [facility] ALKALINE PHOSPHATASE S/P/B 51 45 - 115 U/L 05/11/2025 2:14 PM CDT [facility] AST 15 15 - 37 U/L 05/11/2025 2:14 PM CDT [facility] ALT 32 16 - 61 U/L 05/11/2025 2:14 PM T [facility] TOTAL PROTEIN S/P/B 7.5 6.4 - 8.2 G/DL 05/11/2025 2:14 PM T [facility] ALBUMIN S/P/B 4.3 3.4 - 5.0 G/DL 05/11/2025 2:14 PM T [facility] ANION GAP 4.7 2.0 - 10.0 MMOL/L 05/11/2025 2:14 PM T [facility] OSMOLALITY (CALC) 288 MOSM/KG 025 2:14 PM T [facility] Comment:REFERENCE RANGE NOT ESTABLISHED GFR ESTIMATE 63(L) >90 ML/MIN/1. 73 M2 05/11/2025 2:14 PM T [facility] GFR NOTES GFR REFERENCE S: 05/11/2025 2:14 PM T [facility] Comment: THE ESTIMATED GFR [...] ml/min/1.73 m2 G5,KIDNEY FAILURE: <15 ml/min/1.73 m2 05/11/2025 1:32 PM CDT Barbara Flowers MD LABORATORY Final Re sult [facility] [address] [place] [address], [id number] * ELECTROCARDIOGRAM (05/11/2025 12:55 PM CDT) Only the most recent of2 resultswithin the time period is included. 05/11/2025 12:5 5 PM CDT Narrative [facility] - 05/12/2025 8:31 AM CDT [facility] [address] [place] [address] Test Date: 2025-05-11 Pat Name: SAULO HEREDIA Department: 105 Room: Gender: Male Bill Sorter: : 1975 Requested By: SAULO QURESHI Order Number: [id number] Aleida JOSHI: Saulo Qureshi Measurements Intervals [place] Rate: 82 P: -57 AL: 173 QRS: 265 QRSD: 181 T: 56 QT: 454 QTc: 531 Interpretive Statements ELECTRONIC ATRIAL PACEMAKER ELECTRONIC BI-VENTRICULAR PACEMAKER ABNORMAL RHYTHM ECG Procedure Note Saulo Qureshi MD - 05/12/2025 [facility] [address] [place] [address] Test Date: 2025-05-11 Pat Name: SAULO HEREDIA Department: 105 Room: Gender: Male Bill Sorter: : 1975 Requested By: SAULO QURESHI Order Number: [id number] Aleida Qureshi Measurements Intervals [place] Rate: 82 P: -57 AL: 173 QRS: 265 QRSD: 181 T: 56 QT: 454 QTc: 531 Interpretive Statements ELECTRONIC ATRIAL PACEMAKER ELECTRONIC BI-VENTRICULAR PACEMAKER ABNORMAL RHYTHM ECG us Saulo Qureshi MD PROCEDURES-ORDERABLE NO ASHWINI RGE Final Result [facility] * ULTRASOUND (02/23/2025 12:00 AM CDT) Anatomical Region Laterality Modality Other 02/23/2025 us Doc Pccl Scanned SCANNING Final Result * LIPID PANEL (04/21/2023) CHOLESTEROL 127 HDL 53 LDL (CALCULATED) 59 CHOL/HDL RATIO 2.4 Narrative Resulting Agency Comment us Sugar Patterson MD LABORATORY Final Result from Last 3 Months or Most Recently Relevant to Health Maintenance Insurance [facility] Advance Directives * Full Code (Latest Code Status on File) Date Activated Date Inactivated Comments 05/12/2025 7:46 PM 05/13/2025 1:07 PM * Full Code Date Activated Date Inactivated Comments 11/18/2023 10:34 PM 11/20/2023 2:06 PM * Full Code Date Activated Date Inactivated Comments 11/17/2023 4:24 AM 11/18/2023 10:34 PM Care Teams Mainframe Systems Administrator Relationship Specialty Start Date End Date Geovanni Meyer MD [address] [place] [address] PCP - General FAMILY PRACTICE 08/06/21 Sugar Patterson MD [address] [place] [id number] [place] Director Nicu CARDIOVASCULAR DISEASE 10/31/21 El Tariq MD [address] [place], [place] [phone] Vascular/Cardiologis t INTERVENTIONAL CARDIOLOGY 12/14/21 Barbara Flowers MD [address] [place] [address] [phone] Consulting Physician Electrophysiology 11/19/23 Tony Jimenez PA-C [address] [place] [phone] PHYSICIAN COP WINDER 11/19/23
--- OUTSIDE RECORDS SUMMARY | 2025-05-25 11:41 | XMS_ITS | Encounter Summary ---
Author Organization [facility] Address [address] [place] [id number] Care Team Providers Care Process Control Manager Name Role Phone Geovanni Meyer MD Primary Care Provider [phone] Sugar Patterson MD Unavailable El Tariq MD Unavailable [phone] Barbara Flowers MD Unavailable [phone] Tony Jimenez PA-C Unavailable [phone] Encounter Details Date Type Department Care Team (Late st Contact Info) Description 11/24/2023 Hospital Follow-up Call [facility] [address] [place] [address] Katiuska Zavala, RN Social History Tobacco Use Types Packs/Day Years Used Date Smoking Tobacco: Former Smokeless Tobacco: Never Snuff Alcohol Use Standard Drinks/Week Comments Yes 0 (1 standard drink = 0.6 oz pur e alcohol) 5-10 drinks per week [facility] Utilities Answer Date Recorded In the past 12 months has e electric, gas, oil, or water [employer] threatened to shut off services in your [...] place to sleep or slept in a long-term (including now)? 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 Sex Male 10:18 AM CDT Gender [...] Description 06/10/2025 9:30 AM CDT [facility] [address] [place] [address] Tony Jimenez PA-C [address] [place] [phone] 06/10/2025 9:30 AM CDT Allied Health/Nurse Visit [facility] [address] [place] [address] Barbara Flowers MD [address] [place] [phone] 06/23/2025 1:00 AM CDT Allied Health/Nurse Visit [facility] [address] [place] [address] Barbara Flowers MD [address] [phone] 07/20/2025 1:30 PM CDT Appointment [address] [place] [address] Sugar Patterson MD [address] [place] [address] [phone] 07/25/2025 1:30 PM CDT Office Visit [facility] [place] [address] Sugar Patterson MD [address] [place] [address] [phone] documented as of this encounter Goals Goal Patient Goal Type Associated Problems Recent Progress Patient-Stated? Author Patient will return to prior living situation and remain independent in ADLs upon discharge from hospital Lifestyle No Michelle Self RN documented as of this encounter Visit Diagnoses Not on filedocumented in this encounter Care Teams Process Control Manager Relationship Specialty Start Date End Date Geovanni Meyer MD [address] [place] [address] PCP - General FAMILY PRACTICE 08/06/21 Sugar Patterson MD [address] [place] [phone] [employer] General Sales Manager CARDIOVASCULAR DISEASE 10/31/21 El Tariq MD [address] [place] [address] [phone] Vascular/Cardiologis t INTERVENTIONAL CARDIOLOGY 12/14/21 Barbara Flowers MD [address] [place] [address] [phone] Consulting Physician Electrophysiology 11/19/23 Tony Jimenez PA-C [address] [place] [phone] PHYSICIAN CHRISTMAS TREE GRADER 11/19/23 documented as of this encounter
[2025-05-25 12:01] LABS: Add Urine Microscopic? NO; Appearance Urine Clear (Clear); Glucose Urine UA Negative (Negative); Hematocrit 45.4 % (40.0-54.0); Hemoglobin 15.0 g/dL (14.0-18.0); Immature Granulocyte Percent A 0.3 % (0.0-0.0); Leukocyte Esterase Ur Negative (Negative); Lymphocytes Absolute Auto 1.35 K/mm3 (1.10-4.50); Mean Corpuscular HGB Conc 33.0 g/dL (32-36); Mean Corpuscular Hemoglobin 30.7 pg (27.0-31.0); Mean Corpuscular Volume 93.0 fL (78.0-102.0); Nitrate Urine Negative (Negative); Nucleated Red Blood Cells Absolute Auto 0.00 K/mm3 (0.00-0.00); Nucleated Red Blood Cells Perc 0.0 % (0-0.0); Platelet Count Result 184 K/mm3 (150-420); Red Blood Count 4.88 M/mm3 (4.70-6.10); Specific Grav Ur 1.020 (1.010-1.020); White Blood Count 7.0 K/mm3 (4.8-10.8)
[2025-05-25 12:23] LABS: Alanine Aminotransferase 25 U/L (6-50); Albumin Level 4.8 g/dL (3.5-5.1); Alkaline Phosphatase 45 U/L (38-126); Anion Gap 5 mmol/L (4-12); Aspartate Amino Transferase 25 U/L (17-59); Bilirubin,Total 0.9 mg/dL (0.2-1.3); Blood Urea Nitrogen 20 mg/dL (9-20); Calcium 10.1 mg/dL (8.4-10.2); Carbon Dioxide 28 mmol/L (22-30); Chloride 106 mmol/L (98-107); Estimated Glomerular Filt Rate > 60; Glucose 102 mg/dL (65-110); Osmolality Calculated 290 mOsm/kg (285-295); Potassium 4.8 mmol/L (3.4-5.0); Sodium 139 mmol/L (137-145); Total Protein 7.2 g/dL (6.3-8.2)
[2025-05-25 12:54] LABS: Thyroid Stimulating Hormone 3.230 uIU/mL (0.465-4.680)
== END 2025-05-25 11:39 | disposition home or self-care (01) ==
PROVIDERS: PCP Family Medicine; Visit Provider Family Medicine
DX: R53.83 Other fatigue (principal)
CPT/HCPCS: 36415; 80053; 81003; 84443; 85025